=== PATIENT | female | born 1945 | race Caucasian/White ===

== ENCOUNTER → 2020-05-20 11:17 | Outpatient (CLI) | payer OTHER, SELFPAY ==
--- NOTE | ~2020-05-20 | XR_ITS ---
EXAMINATION: XR chest 2V DATE: 05/20/2020 11:30 INDICATION: Rheumatoid arthritis. Drug monitoring. TECHNIQUE: Frontal and lateral views of the chest were obtained. COMPARISON: None. FINDINGS: A calcified right lung nodule and calcified right hilar and mediastinal lymph nodes are con sistent with old granulomatous disease. There is blunting of the posterior costophrenic angles. No pn eumothorax. The heart size is normal. IMPRESSION: 1. No evidence of chronic interstitial lung disease. 2. Blunting of the posterior costophrenic angles, which may be scarring or tiny pleural effusions. Reviewed, dictated and finalized at location B. ER ELECTRICIAN
== END ==
PROVIDERS: PCP Family Medicine; Visit Provider Internal Medicine Rheumatology
DX: M05.79 Rheumatoid arthritis with rheumatoid factor of multiple sites without organ or systems involvement (principal); Z79.899 Other long term (current) drug therapy; Z51.81 Encounter for therapeutic drug level monitoring; R91.8 Other nonspecific abnormal finding of lung field
CPT/HCPCS: 71046

== ENCOUNTER 2022-03-11 15:40 | Outpatient (CLI) | payer OTHER, SELFPAY ==
--- NOTE | ~2022-03-11 | DEXA_ITS ---
Bone Density Report Name: CHRISTINE RIZO Age: 76 Sex: Female Ethnicity: White Date of : 1945 Indication: postmenopausal; screening for osteoporosis; height loss; hysterectomy; Referring Provider: BRIANNA STEEN Study: Bone densitometry was performed. Exam Date: March 11, 2022 Accession number: [id number] Bone Density: Region BMD T-score Z-score Classification AP Spine(L1-L4) 0.895 -1.4 1.0 Osteopenia Femoral Neck (Left) 0.601 -2.2 -0.2 Osteopenia Total Hip (Left) 0.719 -1.8 -0.1 Osteopenia Femoral Neck (Right) 0.634 -1.9 0.1 Osteopenia Total Hip (Right) 0.741 -1.7 0.1 Osteopenia Total Hip Mean 0.730 -1.8 0.0 Osteopenia World Health Organization criteria for BMD impression classify patients as: Normal (T-score at or above -1.0), Osteopenia (T-score between -1.0 and -2.5), or Osteoporosis (T-score at or below -2.5). 10-year Fracture Risk(1): Major Osteoporotic Fracture 14% Hip Fracture 3.7% Reported Risk Factors: [place] (), Neck BMD=0.601, BMI=25.3 (1) FRAX(R) Version 3.08. Fracture probability calculated for an untreated patient. Fracture probability may be lower if the patient has received treatment. Clinical Information Provided by Patient: Has used the following medications: Vitamin D, Calcium Has the following medical conditions: Hysterectomy Patient maximum height was 65 Drinks caffeinated beverages Onset of menses at age 14 Number of children 2 Impression: The patient has low bone mass, based on the Left Femoral Neck T-score. The patient has an estimated ten-year risk of hip fracture of 3.7% and an estimated ten-year risk of major fracture of 14%, based on the WHO FRAX algorithm. Discussion: BONE DENSITY IS LOW AT ONE OR MORE SKELETAL SITES. THE PATIENT'S BMD AND CLINICAL RISK FACTORS CONTRIBUTE TO THIS PATIENT'S INCREASED RISK OF FRACTURE. This patient's lowest T-score is low at one or more skeletal sites. It meets the World Health Organization's (WHO) criteria for ?low bone mass? (T-score between -1.0 and -2.5). The patient's 10-year risk of hip fracture as calculated by FRAX exceeds the threshold where pharmacological therapy is recommended by the National Osteoporosis Foundation (NOF). However, all treatment decisions require clinical judgment and consideration of individual patient factors, including patient preferences, comorbidities, previous drug use, risk factors not captured in the FRAX model (e.g., frailty, falls, vitamin D deficiency, increased bone turnover, interval significant decline in bone density) and possible under or overestimation of fracture risk by FRAX. The patient should follow a healthful lifestyle (good nutrition with adequate calcium and vitamin D, and appropriate weight-bearing exercise). Follow-Up: Consider a repeat BM
== END 2022-03-11 15:41 | disposition home or self-care (01) ==
PROVIDERS: PCP Emergency Medicine; Visit Provider Physician Assistant
DX: M85.89 Other specified disorders of bone density and structure, multiple sites (principal)
CPT/HCPCS: 77080

== ENCOUNTER 2022-06-30 12:46 | Outpatient (CLI) | payer OTHER, SELFPAY ==
--- NOTE | ~2022-06-30 | MM_ITS ---
EXAMINATION: MM screening ashlie BI w jazmyn HISTORY: Screening mammogram TECHNIQUE: Craniocaudal and mediolateral oblique 3-D tomosynthesis images were obtained and synthetic 2-D images were generated. CAD analysis was submitted and interpreted. COMPARISON: 07/18/2014, 03/21/2013 bilateral screening mammogram examinations BREAST PARENCHYMAL COMPOSITION: There are scattered areas of fibroglandular density. FINDINGS: There is no evidence of suspicious mass, calcification, or architectural distortion to sugg est malignancy in either breast. There has been no suspicious interval change. IMPRESSION: 1. No mammographic evidence of malignancy. 2. Recommend routine screening mammography in one year. BI-RADS Category 1: Negative Reviewed, dictated and finalized at location A. LUTION AGENT
== END 2022-06-30 12:47 | disposition home or self-care (01) ==
LOC: ANHIMG 12:47
PROVIDERS: PCP Emergency Medicine; Visit Provider Physician Assistant
DX: Z12.31 Encounter for screening mammogram for malignant neoplasm of breast (principal)
CPT/HCPCS: 77063; 77067

== ENCOUNTER 2023-02-17 09:53 | Outpatient (CLI) | payer OTHER, SELFPAY ==
--- NOTE | ~2023-02-17 | XR_ITS ---
EXAMINATION:XR_[id number]_CR DATE: 02/17/2023 10:13 INDICATION: Neck pain TECHNIQUE: AP, lateral, lateral swimmers and odontoid views of the cervical spine are provided. COMPARISON: None FINDINGS: There are 2 mm of anterolisthesis of C4 on C5. The odontoid process is intact. No fracture is identified. There is severe loss of intervertebral disc space height at C5-6. Small degenerative o steophytes project from the anterior endplates of multiple vertebral bodies. There is severe facet an d uncovertebral joint osteoarthritis at C5-6 and C6-7. There is multilevel moderate facet and uncover tebral joint osteoarthritis. Prevertebral soft tissues are normal. IMPRESSION: 1. Multilevel cervical spondylosis, severe at C5-6, without acute findings. Reviewed, dictated and finalized at location F.
== END 2023-02-17 09:54 | disposition home or self-care (01) ==
PROVIDERS: PCP Emergency Medicine; Visit Provider Emergency Medicine
DX: M43.02 Spondylolysis, cervical region (principal); M54.2 Cervicalgia
CPT/HCPCS: 72040

== ENCOUNTER 2023-07-11 00:56 | Day surgery (SDC) | payer OTHER, SELFPAY ==
--- NOTE | 2023-07-06 10:06 | PC.NURSE ---
Report to the Outpatient Waiting Room, entrance under the green pavilion located off [facility], at time _1230 on date _07/11/23 . Planned Procedure Time: __1330 . Time changes happen often and if your time is changed the preop area will call you the afternoon before. - You and your visitor will be asked to self-screen and do not enter if you have any COVID symptoms. - A mask is optional within the hospital at this time. EAT A LIGHT BREAKFAST/LUNCH PRIOR TO PROCEDURE.DO NOT EAT OR DRINK ANYTHING OTHER THAN SCHEDULED MEDICATIONS WITH SMALL AMOUNT OF WATER FOR TWO HOURS ( 11;30 AM) PRIOR TO PROCEDURE Take the following medications with a SIP of water the morning of surgery: ___ALL ROUTINE MORNING MEDICATIONS DO NOT STOP ANY OF YOUR OTHER PRESCRIPTION MEDICATIONS PRIOR TO SURGERY ?EXCEPT THE FOLLOWING Medications to discontinue per physician NONE TAKE SHOWER/BATH THE EVENING BEFORE AND MORNING OF PROCEDURE Please no make-up, nail afghan, hairspray, perfume, deodorant, or body powder the day of surgery. No jewelry (including any body piercings) or valuables the day of surgery, leave them at home. Please take a shower or bath the night before, or the morning of, surgery with an antibacterial soap. Wear comfortable, loose fitting clothing. Children are encouraged to wear pajamas. - Jewelry must be removed prior to entering the operating room. Rings and piercings that are not removed may be cut off. - The hospital will not accept responsibility for valuables. - Please leave all valuables, including medications, at home the day of surgery. If you are going home after surgery, a licensed hazardous materials driver must drive you home. LOCAL /MAY DRIVE YOURSELF HOME - NO public transportation without another adult if you receive anesthesia. - We recommend that an adult stay with you for 24 hours following discharge. - We also recommend that you do not drive, make important decision, drink alcoholic beverages, or take any drugs that were not prescribed by your health care provider for at least 24 hours after your discharge time. Follow any additional instructions given to you from your surgeon. If you or anyone in your household have experienced Covid symptoms in the past week, please notify your surgeon or the nurse liaison at the phone number below for possible testing. Telephone instructions given to ____PATIENT and asked if any additional questions and then verbalized understanding. Patient advised to call surgeon office or pre surgery nurse liaison [phone] if any additional questions.
[2023-07-06 10:16] VITALS: BMI 25.7
--- NOTE | ~2023-07-11 | XR_ITS ---
EXAMINATION: XR fluoroscopy no charge DATE: 07/11/2023 14:20 CDT INDICATION: LEFT C5/C6/C7 MEDIAL BRANCH BLOCK . TECHNIQUE: 6 fluoroscopic images of the cervical spine were obtained during left C5-C7 medial branch block, performed by Toy Oseguera MD. I was not present during the procedure. Fluoroscopy exposure time was 27.3 seconds. Air Kerma 1.4190 mGy. DAP 0.0207 mGym2. COMPARISON: X-ray C-spine 02/17/2023. FINDINGS/IMPRESSION: Fluoroscopic documentation of left C5-C7 medial branch block. Please refer to the operative note for complete procedural details. Reviewed, dictated and finalized at location K.
[2023-07-11 12:33] VITALS: BP 140/86; PULSE 69; RESP 18; TEMP 36.6; O2SAT 99
--- NOTE | 2023-07-11 12:47 | PM.HPGS ---
History of Present Illness History of Present Illness Consent: Risks, benefits, and alternatives have been discussed and questions answered. Patient agrees to proceed with procedure. Chief complaint: spondylolysis cervical region, cervicalgia Narrative: Thu Gaviria is a 77 year old female with chronic, recalcitrant and disabling left cervical pain secondary to degenerative spondylosis with failure to respond to aggressive conservative measures including PT, oral and topical analgesics, opioid and nonopioid analgesics, rest, time and activity/behavioral modification over the past 1-2 years who presents for left diagnostic/prognostic medial branch blocks (#1)at C5, C6, Ct under fluoroscopic guidance[ and with contrast control]. Review of Systems Review of Systems: Patient denies any new infectious, allergic, cardiopulmonary, neurologic or constitutional symptoms or changes in activity tolerance or exercise capacity including new or progressive SOB/MATHEWS, peripheral edema, productive cough, dysuria, nausea/vomiting, diarrhea, weight change, fevers/chills/night sweats, new or progressive neurologic deficit, cognitive or mood changes since last seen, except as documented in the HPI. All systems reviewed & are unremarkable except as noted in HPI and below PMFSH Past Medical History Medical History (Updated 05/09/23 @ 11:12 by Toy Oseguera MD) Abnormal colonoscopy Cystocele Cystocele Surgical History Surgical History H/O: hysterectomy Family History Family History Other Cerebrovascular accident Family history of cardiovascular disease Social History Social History (Updated 02/09/23 @ 16:04 by Veronique Farmer) Smoking packs per day: 0.5 Smoking cigarettes per day: 10.0 Years smoked: 5 Smoking pack-years: 2.50 Smoking status: Former smoker Tobacco type: cigarettes Smoking end date: 05/02/68 Alcohol intake: current Drinks per week: 7 Alcohol use details: 1 glass of wine every night Substance use: current Substance use type: marijuana Last use: last used marijuana in june Lack of Transportation: No Lack of Food: Sometimes True Current Housing: I Have Housing Concerned About Future Housing: No Difficulty Paying Gas/Electric Bills: No Difficulty Paying for Meds: No Currently Unemployed: No Education: Master's Degree or Higher Difficulty w/ Childcare or Family Care: No [place] Spiritual care concerns: No Meds Home Medications and Allergies Home Medications Medication Instructions Recorded Confirmed Type adalimumab 40 mg/0.8 mL 0.8 mg subcut .every 2 weeks 03/22/19 07/06/23 History subcutaneous pen kit (Humira Pen) hydroxychloroquine 200 mg tablet 200 mg PO .qd 09/09/20 07/06/23 History methotrexate sodium 2.5 mg tablet 20 mg PO WEEKLY #32 tabs 03/17/21 07/06/23 Rx folic acid 1 mg tablet 1 mg PO DAILY 04/13/22 07/06/23 History losartan 50 mg tablet See Rx Instructions .Route 10/25/22 07/06/23 Rx .COMPLEX #90 tabs trazodone 100 mg tablet See Rx Instructions .Route 02/15/23 07/06/23 Rx .COMPLEX #90 tabs alendronate 70 mg tablet 70 mg PO WEEKLY #14 tabs 03/28/23 07/06/23 Rx venlafaxine 225 mg tablet,extended 225 mg PO DAILY #90 tabs 03/28/23 07/06/23 Rx release 24 hr clonazepam 1 mg tablet (Klonopin) 1 mg PO QHS #90 tabs 05/16/23 07/06/23 Rx fluticasone propionate 50 See Rx Instructions .Route 05/17/23 07/06/23 Rx mcg/actuation nasal .COMPLEX #48 grams spray,suspension acetaminophen 500 mg capsule 500 mg PO Q6H PRN Pain 07/06/23 07/06/23 History calcium carb-ergocalciferol (vit 1 tablet PO DAILY 07/06/23 07/06/23 History D2) 600 mg calcium-200 unit tablet cholecalciferol (vitamin D3) 50 50 mcg PO DAILY 07/06/23 07/06/23 History mcg (2,000 unit) tablet cyclosporine 0.05 % eye drops in a 1 drp EAC
--- NOTE | 2023-07-11 12:50 | WPDHPUPDATE1 ---
History and Physical Update Update Date/Time: 07/11/23 12:50 History and Physical has been reviewed, including an updated exam of the patient. There are NO changes in the patient's condition. Risks, benefits, and alternatives have been discussed and questions answered. Patient agrees to proceed with procedure.
--- NOTE | 2023-07-11 12:52 | W.PM.PROC2 ---
Procedure Note - Detailed Date of Procedure 07/11/23 Pre-op Diagnosis spondylolysis cervical region, cervicalgia Post-op Diagnosis Same Procedure Performed Left C5, C6, C7 medial branch block (#1) addressing the left C5-6, C6-7 facet joints under fluoroscopic guidance with contrast control. Surgeon Toy Oseguera MD Anesthesia Local Description of Procedure INFORMED CONSENT: Risks, benefits and alternatives to the procedure were discussed in detail with the patient who expressed explicit understanding and consent to proceed. Patient was informed verbally and in written form regarding the risks associated with the procedure including the low risk of serious infection, bleeding/bruising, allergic reaction, nerve or organ injury, paralysis, procedural site pain or discomfort, worsening pain and/or mobility, failure to treat and/or disfigurement. The patient expressed explicit understanding and consent to proceed. All materials required for the procedure were available prior to procedure start. Site and side were marked prior to procedure and confirmed in the presence of the patient. PROCEDURE IN DETAIL: The patient was brought to the procedural suite and placed in the prone position with head stabilized with a ProneView pillow. Patient was made comfortable with use of pillows under the head/chest, hips and ankles. Skin overlying the injection site on the affected side(s) was prepared broadly with ChloraPrep applicator and draped in a sterile manner. Aseptic technique was used throughout. The endplates of the vertebral bodies at the site(s) of interest were aligned in the AP view. Ipsilateral oblique angulation was utilized to optimize visualization of the pars interarticularis at each target site. Local anesthesia was established by infiltration with approximately 5 mL of 1% lidocaine via a 1-1/2 inch 27-gauge needle. A 25-gauge 3.5 inch Quincke spinal needle was advanced until the needle tip contacted the periosteum of the pars interarticularis at the target site, left C5. Lateral view was utilized to confirm the appropriate placement of the needle tip just anterior to the center point of the interarticularis. In the Lateral view, 0.25 mL of Omnipaque 300 contrast medium was injected after negative aspiration for CSF, blood or other bodily fluid, showing appropriate extra-articular spread of contrast without evidence of intravascular, foraminal or intrathecal placement. A 0.25 mL solution of 0.25% PF bupivacaine was injected after negative repeat aspiration. Appropriate spread of the injectate was confirmed with washout of previously injected contrast. No parasthesias were elicited. Needle was removed completely intact without difficulty. The same exact procedure was repeated for all remaining levels on the ipsilateral side, left C6,C7 medial branches, modified as necessary to accommodate for the new target location with identical findings and results and no evidence of complication. Images were saved and documented in the patient chart. Patient's skin was cleansed and sterile bandage applied. The patient tolerated the procedure well. The patient was transported to the recovery area in stable condition where they were observed for an appropriate amount of time prior to discharge, without evidence of complication. Patient was instructed on the appropriate completion of a pain diary over the next 12-24 hours. The patient was instructed to avoid excessive activity for the next 48 hours, including climbing and frequent use of stairs. Showers only for 48 hours. They were instructed not to drive or operate heavy machinery for 24 hours. They are to monitor for severe headaches, fevers, chills, night sweats, erythema/swelling at the site or any other signs of infection, bleeding/bruising, bowel or bladder changes as well as new pain, weakness or numbness in the upper or lower extremity. Should they notice these changes, they are instructed to call our office immediately or re
[2023-07-11 14:22] VITALS: BP 149/82; PULSE 66; RESP 20; O2SAT 97
[2023-07-11 14:32] VITALS: BP 167/86; PULSE 67; RESP 18; O2SAT 98
[2023-07-11] MEDS: BUPivacaine HCL 0.25% PF 30 ML VIAL INFILTRATE (14:34)
[2023-07-11] MEDS: LIDOCAINE HCL 1% LOCAL INJ 20 ML VIAL INFILTRATE (14:36)
[2023-07-11 14:38] VITALS: BP 161/80; PULSE 65; RESP 16; O2SAT 100
== END 2023-07-11 14:58 | disposition home or self-care (01) ==
PROVIDERS: PCP Emergency Medicine; Visit Provider Anesthesiology Pain Medicine
PROC: (CPT 64490; principal; 2023-07-11 13:30)
DX: M47.812 Spondylosis without myelopathy or radiculopathy, cervical region (principal); G89.29 Other chronic pain; F12.90 Cannabis use, unspecified, uncomplicated; Z79.85 Long-term (current) use of injectable non-insulin antidiabetic drugs; Z79.83 Long term (current) use of bisphosphonates; Z87.891 Personal history of nicotine dependence; Z82.49 Family history of ischemic heart disease and other diseases of the circulatory system
CPT/HCPCS: 64490; 64491; 99199

== ENCOUNTER 2023-08-23 01:10 | Day surgery (SDC) | payer OTHER, SELFPAY ==
[2023-08-18 11:20] VITALS: BMI 25.8
--- NOTE | 2023-08-18 11:25 | PC.NURSE ---
Report to the Outpatient Waiting Room, entrance under the green pavilion located off [facility], at time __0900 on date __08/23/23 . Planned Procedure Time: ___999 . Time changes happen often and if your time is changed the preop area will call you the afternoon before. - You and your visitor will be asked to self-screen and do not enter if you have any COVID symptoms. - A mask is optional within the hospital at this time. -MAY HAVE LIGHT BREAKFAST - NO FOOD/FLUIDS 2 HOURS PRIOR TO YOUR PROCEDURE (0800 AM) -Take the following medications with a SIP of water the morning of surgery: ___REGULAR HOME MEDS DO NOT STOP ANY OF YOUR OTHER PRESCRIPTION MEDICATIONS PRIOR TO SURGERY ?EXCEPT THE FOLLOWING Medications to discontinue per physician N/A Date to take last dose Please no make-up, nail irish, hairspray, perfume, deodorant, or body powder the day of surgery. No jewelry (including any body piercings) or valuables the day of surgery, leave them at home. Please take a shower or bath the night before, or the morning of, surgery with an antibacterial soap. Wear comfortable, loose fitting clothing. Children are encouraged to wear pajamas. - Jewelry must be removed prior to entering the operating room. Rings and piercings that are not removed may be cut off. - The hospital will not accept responsibility for valuables. - Please leave all valuables, including medications, at home the day of surgery. -MAY DRIVE SELF TO/FROM HOSPITAL-BUT A CLINICAL OPERATIONS CONSULTANT IS RECOMMENDED For Pediatric surgeries, we recommend two adults accompany the child home. Follow any additional instructions given to you from your surgeon. If you or anyone in your household have experienced Covid symptoms in the past week, please notify your surgeon or the nurse liaison at the phone number below for possible testing. Telephone instructions given to ____PT and asked if any additional questions and then verbalized understanding. Patient advised to call surgeon office or pre surgery nurse liaison [phone] if any additional questions.
--- NOTE | ~2023-08-23 | XR_ITS ---
XR fluoroscopy no charge Indication: Cervical C5,, C6, C7 medial nerve branch block TECHNIQUE: Fluoroscopy used during Cervical C5,, C6, C7 medial nerve branch block performed by [ Toy Oseguera MD] on 08/23/2023. 59 seconds of fluoroscopy with 6 fluoroscopic images captured. FINDINGS: Correlate with procedure note. IMPRESSION: Fluoroscopy used during Cervical C5,, C6, C7 medial nerve branch block. Reviewed, dictated and finalized at location B. IMPRESSION: Fluoroscopy used during Cervical C5,, C6, C7 medial nerve branch bl ock.
--- NOTE | 2023-08-23 09:18 | PM.HPGS ---
History of Present Illness History of Present Illness Consent: Risks, benefits, and alternatives have been discussed and questions answered. Patient agrees to proceed with procedure. Chief complaint: Spondylosis without Myelopathy Radiculopathy Narrative: Thu Gaviria is a 78 year old femalewith chronic, recalcitrant and disabling left cervical pain secondary to degenerative spondylosis with failure to respond to aggressive conservative measures including PT, oral and topical analgesics, opioid and nonopioid analgesics, rest, time and activity/behavioral modification over the past 1-2 years who presents for diagnostic/prognostic medial branch blocks (#2) under fluoroscopic guidance and with contrast control. Review of Systems Review of Systems: All systems reviewed & are unremarkable except as noted in HPI and below PMFSH Past Medical History Medical History (Updated 08/10/23 @ 15:42 by Amilcar Trevino MD) Abnormal colonoscopy Cystocele Cystocele Surgical History Surgical History H/O: hysterectomy Family History Family History Other Cerebrovascular accident Family history of cardiovascular disease Social History Social History Smoking packs per day: 0.5 Smoking cigarettes per day: 10.0 Years smoked: 5 Smoking pack-years: 2.50 Smoking status: Former smoker Tobacco type: cigarettes Second hand tobacco smoke exposure: No Smoking end date: 05/02/68 Alcohol intake: current Drinks per week: 7 Alcohol use details: 1 glass of wine every night Substance use: never Substance use type: does not use Last use: last used marijuana in june Lack of Transportation: No Lack of Food: Sometimes True Current Housing: I Have Housing Concerned About Future Housing: No Difficulty Paying Gas/Electric Bills: No Difficulty Paying for Meds: No Currently Unemployed: No Education: Master's Degree or Higher Difficulty w/ Childcare or Family Care: No Living arrangements: alone Additional [place] [facility] [place] concerns: No Meds Home Medications and Allergies Home Medications Medication Instructions Recorded Confirmed Type adalimumab 40 mg/0.8 mL 0.8 mg subcut .every 2 weeks 03/22/19 08/18/23 History subcutaneous pen kit (Humira Pen) hydroxychloroquine 200 mg tablet 200 mg PO .qd 09/09/20 08/18/23 History methotrexate sodium 2.5 mg tablet 20 mg PO WEEKLY #32 tabs 03/17/21 08/18/23 Rx folic acid 1 mg tablet 1 mg PO DAILY 04/13/22 08/18/23 History alendronate 70 mg tablet 70 mg PO WEEKLY #14 tabs 03/28/23 08/18/23 Rx venlafaxine 225 mg tablet,extended 225 mg PO DAILY #90 tabs 03/28/23 08/18/23 Rx release 24 hr clonazepam 1 mg tablet (Klonopin) 1 mg PO QHS #90 tabs 05/16/23 08/18/23 Rx fluticasone propionate 50 See Rx Instructions .Route 05/17/23 08/18/23 Rx mcg/actuation nasal .COMPLEX #48 grams spray,suspension acetaminophen 500 mg capsule 500 mg PO Q6H PRN Pain 07/06/23 08/18/23 History calcium carb-ergocalciferol (vit 1 tablet PO DAILY 07/06/23 08/18/23 History D2) 600 mg calcium-200 unit tablet cholecalciferol (vitamin D3) 50 50 mcg PO DAILY 07/06/23 08/18/23 History mcg (2,000 unit) tablet cyclosporine 0.05 % eye drops in a 1 drp EACH EYE TID 07/06/23 08/18/23 History dropperette (Restasis) diclofenac sodium 1 % topical gel 2 g topical PRN PRN Pain 07/06/23 08/18/23 History (Voltaren Arthritis Pain) tizanidine 4 mg tablet 4 mg PO PRN PRN Muscle Spasm 07/06/23 08/18/23 History vitamin B complex 1 cap PO DAILY 07/06/23 08/18/23 History losartan 50 mg tablet See Rx Instructions .Route 07/18/23 08/18/23 Rx .COMPLEX #90 tabs trazodone 100 mg tablet See Rx Instructions .Route 08/15/23 08/18/23 Rx .COMPLEX #90 tabs Allergies Al
--- NOTE | 2023-08-23 09:21 | WPDHPUPDATE1 ---
History and Physical Update Update Date/Time: 08/23/23 09:21 History and Physical has been reviewed, including an updated exam of the patient. There are NO changes in the patient's condition. Risks, benefits, and alternatives have been discussed and questions answered. Patient agrees to proceed with procedure.
--- NOTE | 2023-08-23 09:22 | W.PM.PROC2 ---
Procedure Note - Detailed Date of Procedure 08/23/23 Pre-op Diagnosis cervical Spondylosis without Myelopathy Radiculopathy , cervicalgia Post-op Diagnosis Same Procedure Performed Diagnostic left Cervical Medial Branch Blocks at C5, C6, C7 Blocking the Ipsilateral C5-6, C6-7 facet joints under Fluoroscopic Guidance and with Contrast Control (2 levels blocked). Surgeon Toy Oseguera MD Anesthesia Local Description of Procedure INFORMED CONSENT: Risks, benefits and alternatives to the procedure were discussed in detail with the patient who expressed explicit understanding and consent to proceed. Patient was informed verbally and in written form regarding the risks associated with the procedure including the low risk of serious infection, bleeding/bruising, allergic reaction, nerve or organ injury, paralysis, procedural site pain or discomfort, worsening pain and/or mobility, failure to treat and/or disfigurement. The patient expressed explicit understanding and consent to proceed. All materials required for the procedure were available prior to procedure start. Site and side were marked prior to procedure and confirmed in the presence of the patient. PROCEDURE IN DETAIL: The patient was brought to the procedural suite and placed in the prone position with head stabilized with a ProneView pillow. Patient was made comfortable with use of pillows under the head/chest, hips and ankles. Skin overlying the injection site on the affected side(s) was prepared broadly with ChloraPrep applicator and draped in a sterile manner. Aseptic technique was used throughout. The endplates of the vertebral bodies at the site(s) of interest were aligned in the AP view. Ipsilateral oblique angulation was utilized to optimize visualization of the pars interarticularis at each target site. Local anesthesia was established by infiltration with approximately 5 mL of 1% lidocaine via a 1-1/2 inch 27-gauge needle. A 25-gauge 3.5 inch Quincke spinal needle was advanced until the needle tip contacted the periosteum of the pars interarticularis at the target site, left C5. Lateral view was utilized to confirm the appropriate placement of the needle tip just anterior to the center point of the interarticularis. In the Lateral view, 0.25 mL of Omnipaque 300 contrast medium was injected after negative aspiration for CSF, blood or other bodily fluid, showing appropriate extra-articular spread of contrast without evidence of intravascular, foraminal or intrathecal placement. A 0.25 mL solution of 2.0% preservative-free lidocaine was injected after negative repeat aspiration. Appropriate spread of the injectate was confirmed with washout of previously injected contrast. No parasthesias were elicited. Needle was removed completely intact without difficulty. The same exact procedure was repeated for all remaining levels on the ipsilateral side, left C6,C7 medial branches, modified as necessary to accommodate for the new target location with identical findings and results and no evidence of complication. Images were saved and documented in the patient chart. Patient's skin was cleansed and sterile bandage applied. The patient tolerated the procedure well. The patient was transported to the recovery area in stable condition where they were observed for an appropriate amount of time prior to discharge, without evidence of complication. Patient was instructed on the appropriate completion of a pain diary over the next 12-24 hours. The patient was instructed to avoid excessive activity for the next 48 hours, including climbing and frequent use of stairs. Showers only for 48 hours. They were instructed not to drive or operate heavy machinery for 24 hours. They are to monitor for severe headaches, fevers, chills, night sweats, erythema/swelling at the site or any other signs of infection, bleeding/bruising, bowel or bladder changes as well as new pain, weakness or numbness in the upper or lower extremity.
[2023-08-23 11:33] VITALS: BMI 25.3
[2023-08-23 11:35] VITALS: BP 131/74; PULSE 70; RESP 14; TEMP 36.6; O2SAT 100
[2023-08-23 11:51] VITALS: BP 143/76; PULSE 63; RESP 16; O2SAT 98
[2023-08-23 12:01] VITALS: BP 137/78; PULSE 64; RESP 16; O2SAT 99
[2023-08-23] MEDS: LIDOCAINE HCL 2% LOCAL INJ 20 ML VIAL 10 ML INFILTRATE (12:01)
[2023-08-23 12:15] VITALS: BP 142/73; PULSE 63; RESP 16; O2SAT 100
== END 2023-08-23 12:32 | disposition home or self-care (01) ==
PROVIDERS: PCP Emergency Medicine; Visit Provider Anesthesiology Pain Medicine
PROC: (CPT 64490; principal; 2023-08-23 11:30)
DX: M47.812 Spondylosis without myelopathy or radiculopathy, cervical region (principal); M54.2 Cervicalgia; G89.29 Other chronic pain; Z87.891 Personal history of nicotine dependence
CPT/HCPCS: 64490; 64491; 99199; Q9965

== ENCOUNTER 2024-01-23 00:58 | Day surgery (SDC) | payer OTHER, SELFPAY ==
[2024-01-16 09:14] VITALS: BMI 25.8
--- NOTE | 2024-01-16 09:19 | PC.NURSE ---
Report to the Outpatient Waiting Room, entrance under the green pavilion located off [facility], at time _0600_ on date _[id number]_. Planned Procedure Time: _0730_.? Time changes happen often and if your time is changed the preop area will call you the afternoon before. - You and your visitor will be asked to self-screen and do not enter if you have any COVID symptoms. Please call surgeon if you need to reschedule. - A mask is optional within the hospital at this time. - No food or drink from midnight until time of surgery and no smoking Take only the following medications with a SIP of water on the morning of surgery: ___Venlafaxine, Hydroxychloroquin, Restasis and flonase.___ DO NOT STOP ANY OF YOUR OTHER PRESCRIPTION MEDICATIONS PRIOR TO SURGERY EXCEPT THE FOLLOWING Medications to discontinue per physician All vitamins Date to take last sfyg___[phone] Please no make-up, nail divehi, hairspray, perfume, deodorant, or body powder the day of surgery.? No jewelry (including any body piercings) or valuables the day of surgery, leave them at home.? Please take a shower or bath the night before, or the morning of, surgery with an antibacterial soap.? Wear comfortable, loose fitting clothing.? - Jewelry must be removed prior to entering the operating room.? Rings and piercings that are not removed may be cut off. - The hospital will not accept responsibility for valuables.? - Please leave all valuables, including medications, at home the day of surgery. If you are going home after surgery, a licensed emergency medical technician/driver must drive you home.? - NO public transportation without another adult if you receive anesthesia. - We recommend that an adult stay with you for 24 hours following discharge. - We also recommend that you do not drive, make important decision, drink alcoholic beverages, or take any drugs that were not prescribed by your health care provider for at least 24 hours after your discharge time. Follow any additional instructions given to you from your surgeon. Telephone instructions given to __Grace___and asked if any additional questions and then verbalized understanding. Patient advised to call surgeon office or pre surgery nurse liaison [phone] if any additional questions.
--- NOTE | ~2024-01-23 | XR_ITS ---
EXAMINATION: XR fluoroscopy no charge DATE: 01/23/2024 09:22 INDICATION: Radiofrequency ablation left C5, C6 and C7 medial branch nerves. TECHNIQUE: 4 fluoroscopic images of the neck were obtained during procedure performed by Dr. Oseguera. Ra diologist was not present for the imaging or procedure. The amount of fluoroscopy time used during th is procedure was 2.5 minutes. COMPARISON: None. FINDINGS/IMPRESSION: Fluoroscopic image demonstrate the tips of needles projecting along the lateral margin of the left la teral masses of C5, C6 and C7. See procedure note for further detail. Reviewed, dictated and finalized at location A.
--- NOTE | 2024-01-23 05:54 | PM.HPGS ---
History of Present Illness History of Present Illness Consent: Risks, benefits, and alternatives have been discussed and questions answered. Patient agrees to proceed with procedure. Chief complaint: cervical spondylosis, cervicalgia Narrative: Thu Gaviria is a 78 year old female with chronic, recalcitrant and disabling left cervicothoracic neck pain secondary to degenerative spondylosis with failure to respond to aggressive conservative measures including PT, oral and topical analgesics, opioid and nonopioid analgesics, rest, time and activity/behavioral modification over the past 1-2 years who presents for thermal radiofrequency ablation of the left C5, C6, C7 medial branches to address the left C5-6, C6-7 facet joints under fluoroscopic guidance. Review of Systems Review of Systems: Patient denies any new infectious, allergic, cardiopulmonary, neurologic or constitutional symptoms or changes in activity tolerance or exercise capacity including new or progressive SOB/MATHEWS, peripheral edema, productive cough, dysuria, nausea/vomiting, diarrhea, weight change, fevers/chills/night sweats, new or progressive neurologic deficit, cognitive or mood changes since last seen, except as documented in the HPI. All systems reviewed & are unremarkable except as noted in HPI and below PMFSH Past Medical History Medical History Abnormal colonoscopy Cystocele Cystocele Surgical History Surgical History H/O: hysterectomy Family History Family History Other Cerebrovascular accident Family history of cardiovascular disease Social History Social History Smoking packs per day: 0.5 Smoking cigarettes per day: 10.0 Years smoked: 5 Smoking pack-years: 2.50 Smoking status: Never smoker Tobacco type: cigarettes Second hand tobacco smoke exposure: No Smoking end date: 05/02/68 Alcohol intake: current Drinks per week: 7 Alcohol use details: 1 glass of wine every night Substance use: never Substance use type: does not use Last use: last used marijuana in june Lack of Transportation: No Lack of Food: Sometimes True Current Housing: Decline to Answer Concerned About Future Housing: Decline to Answer Difficulty Paying Gas/Electric Bills: Decline to Answer Difficulty Paying for Meds: Decline to Answer Currently Unemployed: Decline to Answer Education: Decline to Answer Difficulty w/ Childcare or Family Care: Decline to Answer Living arrangements: alone [facility] Spiritual care concerns: No Meds Home Medications and Allergies Home Medications Medication Instructions Recorded Confirmed Type adalimumab 40 mg/0.8 mL 0.8 mg subcut .every 2 weeks 03/22/19 01/18/24 History subcutaneous pen kit (Humira Pen) hydroxychloroquine 200 mg tablet 200 mg PO .qd 09/09/20 01/18/24 History methotrexate sodium 2.5 mg tablet 20 mg PO WEEKLY #32 tabs 03/17/21 01/18/24 Rx folic acid 1 mg tablet 1 mg PO DAILY 04/13/22 01/18/24 History fluticasone propionate 50 See Rx Instructions .Route 05/17/23 01/18/24 Rx mcg/actuation nasal .COMPLEX #48 grams spray,suspension acetaminophen 500 mg capsule 500 mg PO Q6H PRN Pain 07/06/23 01/18/24 History calcium carb-ergocalciferol (vit 1 tablet PO DAILY 07/06/23 01/18/24 History D2) 600 mg calcium-200 unit tablet cholecalciferol (vitamin D3) 50 50 mcg PO DAILY 07/06/23 01/18/24 History mcg (2,000 unit) tablet cyclosporine 0.05 % eye drops in a 1 drp EACH EYE TID 07/06/23 01/18/24 History dropperette (Restasis) diclofenac sodium 1 % topical gel 2 g topical PRN PRN Pain 07/06/23 01/18/24 History (Voltaren Arthritis Pain) tizanidine 4 mg tablet 4 mg PO PRN PRN Muscle
--- NOTE | 2024-01-23 05:59 | WPDHPUPDATE1 ---
History and Physical Update Update Date/Time: 01/23/24 05:59 History and Physical has been reviewed, including an updated exam of the patient. There are NO changes in the patient's condition. Risks, benefits, and alternatives have been discussed and questions answered. Patient agrees to proceed with procedure.
--- NOTE | 2024-01-23 05:59 | W.PM.PROC2 ---
Procedure Note - Detailed Date of Procedure 01/23/24 Pre-op Diagnosis cervical spondylosis, cervicalgia Post-op Diagnosis Same Procedure Performed Thermal Radiofrequency Ablation of the Left Cervical Medial Branches at [C2-3, C3, C4] to ablate the Ipsilateral C5-6, C6-7 facet joints under Fluoroscopic Guidance (2 levels treated). Surgeon Toy Oseguera MD Anesthesia Local Description of Procedure INFORMED CONSENT: Risks, benefits and alternatives to the procedure were discussed in detail with the patient who expressed explicit understanding and consent to proceed. Patient was informed verbally and in written form regarding the risks associated with the procedure including the low risk of serious infection, bleeding/bruising, allergic reaction, nerve or organ injury, paralysis, procedural site pain or discomfort, worsening pain and/or mobility, failure to treat and/or disfigurement. The patient expressed explicit understanding and consent to proceed. All materials required for the procedure were available prior to procedure start. Site and side was marked prior to procedure and confirmed in the presence of the patient. PROCEDURE IN DETAIL: The patient was brought to the procedural suite and placed in the prone position with head stabilized with a ProneView pillow. Patient was made comfortable with use of pillows under the head/chest, hips and ankles. Skin overlying the injection site on the affected side(s) was prepared broadly with ChloraPrep applicator and draped in a sterile manner. Aseptic technique was used throughout. The endplates of the vertebral bodies at the site(s) of interest were aligned in the AP view. Ipsilateral oblique angulation was utilized to optimize visualization of the pars interarticularis at each target site. Local anesthesia was established by infiltration with approximately 5 mL of 1% lidocaine via a 1-1/2 inch 27-gauge needle. An 18-gauge 100mm RF needle with curved 10mm active tip was advanced in the AP view until the needle tip contacted the periosteum of the pars interarticularis at the target site, left C5 medial branch, parallel to the course of the targeted branch. Lateral view was utilized to adjust and confirm the appropriate placement of the needle tip just anterior to the center point of the interarticularis, bisecting the distance between adjacent joint spaces. The appropriately-sized RF cannula was inserted into the RF needle and motor stimulation performed with no subjective or objective evidence of recruited muscle activity with stimulation up to 3.0 volts at a frequency of 2Hz. 0.5 mL solution of 2.0% PF lidocaine was injected after negative aspiration. Grounding electrode in place and functioning. After a 90s pause, lesioning was performed to 90 degrees centigrade for 90s ensuring lack of symptoms in the extremity throughout. Needle was withdrawn approcimately 1-2 mm and rotated 180 degrees. Lesioning repeated in a similar manner. Patient tolerated this well. No parasthesias were elicited. Needle was removed completely intact without difficulty. The same procedure was repeated for all intended levels/ structures on the ipsilateral side, left C6, C7 medial branches, with identical methodology, modified to compensate for new location, with similar results and no evidence of complication. Patient tolerated this well. Images were saved and documented in the patient chart. Patient's skin was cleaned and sterile bandage applied. The patient tolerated the procedure well. The patient was transported to the recovery area in stable condition where they were observed for an appropriate amount of time prior to discharge, without evidence of complication. The patient was instructed to avoid excessive activity for the next 48 hours, including overhead work, reaching and device/computer usage. Showers only for 48 hours. They were instructed not to drive or operate heavy machinery for 24 hours. They are to monitor for severe heada
[2024-01-23 07:38] VITALS: BMI 25.7
[2024-01-23] MEDS: LIDOCAINE HCL 2% PF INJ 5 ML VIAL INFILTRATE (08:57)
--- NOTE | 2024-01-23 09:07 | WPDANESEPPF ---
Anes - Initial Pre Proc Eval Procedure: Operation Date: 01/23/24 09:00 Proposed Procedures p Thermal Radio Frequency Ablation Left C5, C6, C7 Medial Branches Addressing Left C5-6, C6-7 Facet Joints Under Fluoroscopic Guidance - Toy Oseguera MD Date/Time: 01/23/24 09:07 Surgeon: Toy Oseguera MD Pre Op Diagnosis: cervical spondylosis, cervicalgia Patient Data Age: 78 Gender: F Height: 1.63 m Weight: 68.1 kg Allergies Allergy/AdvReac Type Severity Reaction Status Date / Time No Known Allergies Allergy Verified 01/23/24 07:16 Home Medications Medication Instructions Recorded Confirmed Type adalimumab 40 mg/0.8 mL 0.8 mg subcut .every 2 weeks 03/22/19 01/18/24 History subcutaneous pen kit (Humira Pen) hydroxychloroquine 200 mg tablet 200 mg PO .qd 09/09/20 01/18/24 History methotrexate sodium 2.5 mg tablet 20 mg PO WEEKLY #32 tabs 03/17/21 01/18/24 Rx folic acid 1 mg tablet 1 mg PO DAILY 04/13/22 01/18/24 History fluticasone propionate 50 See Rx Instructions .Route 05/17/23 01/18/24 Rx mcg/actuation nasal .COMPLEX #48 grams spray,suspension acetaminophen 500 mg capsule 500 mg PO Q6H PRN Pain 07/06/23 01/18/24 History calcium carb-ergocalciferol (vit 1 tablet PO DAILY 07/06/23 01/18/24 History D2) 600 mg calcium-200 unit tablet cholecalciferol (vitamin D3) 50 50 mcg PO DAILY 07/06/23 01/18/24 History mcg (2,000 unit) tablet cyclosporine 0.05 % eye drops in a 1 drp EACH EYE TID 07/06/23 01/18/24 History dropperette (Restasis) diclofenac sodium 1 % topical gel 2 g topical PRN PRN Pain 07/06/23 01/18/24 History (Voltaren Arthritis Pain) tizanidine 4 mg tablet 4 mg PO PRN PRN Muscle Spasm 07/06/23 01/18/24 History trazodone 100 mg tablet See Rx Instructions .Route 08/15/23 01/18/24 Rx .COMPLEX #90 tabs alendronate 70 mg tablet 70 mg PO WEEKLY #14 tabs 10/13/23 01/18/24 Rx venlafaxine 225 mg tablet,extended 225 mg PO DAILY #90 tabs 12/30/23 01/18/24 Rx release 24 hr losartan 50 mg tablet See Rx Instructions .Route 01/10/24 01/18/24 Rx .COMPLEX #90 tabs doxycycline monohydrate 100 mg 100 mg PO BID #20 tabs 01/18/24 Rx tablet methylprednisolone 4 mg tablets in See Rx Instructions PO PER PKG DIR 01/18/24 01/18/24 Rx a dose pack (Medrol (Ranjit)) #21 ea Patient hx anesthesia problems: none Family hx anesthesia problems: none Results Review: All pre-operative results and documents have been reviewed as part of the pre-operative evaluation. [facility] Past Medical History Medical History Abnormal colonoscopy Chronic pain syndrome Cystocele Cystocele Surgical History Surgical History H/O: hysterectomy Family History Family History Other Cerebrovascular accident Family history of cardiovascular disease Social History Social History Smoking packs per day: 0.5 Smoking cigarettes per day: 10.0 Years smoked: 5 Smoking pack-years: 2.50 Smoking status: Never smoker Tobacco type: cigarettes Second hand tobacco smoke exposure: No Smoking end date: 05/02/68 Alcohol intake: current Drinks per week: 7 Alcohol use details: 1 glass of wine every night Substance use: never Substance use type: does not use Last use: last used marijuana in june Lack of Transportation: No Lack of Food: Sometimes True Current Housing: Decline to Answer Concerned About Future Housing: Decline to Answer Difficulty Paying Gas/Electric Bills: Decline to Answer Difficulty Paying for Meds: Decline to Answer Currently Unemployed: Decline to Answer Education: Decline to Answer Difficulty w/ Childcare or Family Care: Decline to Answer Living arrangements: alone Additional living arrangements comments: [facility]
[2024-01-23] MEDS: LIDOCAINE HCL 1% PF INJ 5 ML VIAL INFILTRATE (09:08)
[2024-01-23 09:18] VITALS: BP 163/68; PULSE 72; RESP 14; O2SAT 100
[2024-01-23] MEDS: LACTATED RINGERS 1,000 ML 30 ML IV CONT (09:18)
[2024-01-23] MEDS: oxyCODONE HCL (*CRX) 5 MG TAB IR PO (09:46)
[2024-01-23 09:48] VITALS: BP 189/94; PULSE 74; RESP 16
[2024-01-23 10:18] VITALS: BP 180/87; PULSE 71; RESP 16
[2024-01-23 10:45] VITALS: BP 172/87; PULSE 72; RESP 16
== END 2024-01-23 10:50 | disposition home or self-care (01) ==
PROVIDERS: PCP Emergency Medicine; Visit Provider Anesthesiology Pain Medicine
PROC: (CPT 64633; principal; 2024-01-23 09:00)
DX: M47.812 Spondylosis without myelopathy or radiculopathy, cervical region (principal); M54.2 Cervicalgia; G89.4 Chronic pain syndrome; Z79.620 Long term (current) use of immunosuppressive biologic; Z79.83 Long term (current) use of bisphosphonates; Z98.890 Other specified postprocedural states; Z87.891 Personal history of nicotine dependence; Z82.49 Family history of ischemic heart disease and other diseases of the circulatory system
CPT/HCPCS: 64633; 64634; 99199; A9270; J2250; J2704; J3010; J7120; Q9965

== ENCOUNTER 2024-03-12 14:09 | Outpatient (CLI) | payer OTHER, SELFPAY | END 2024-03-12 14:10 | disposition home or self-care (01) | PROVIDERS: PCP Nurse Practitioner Family; Visit Provider Nurse Practitioner Family | DX: H90.3 Sensorineural hearing loss, bilateral (principal) | CPT/HCPCS: 92557; 92567 ==

== ENCOUNTER 2024-06-14 00:30 | Day surgery (SDC) | payer OTHER, SELFPAY ==
[2024-05-29 13:46] VITALS: BMI 27.6
--- OUTSIDE RECORDS SUMMARY | 2024-06-14 00:33 | XMS_ITS | Clinical Summary ---
Author Organization [facility] [employer] Address [address] [place] [address] Care Team Providers Care Dining Room Busser Name Role Phone Rema Sorenson KALEB-MEDICAL SCHEDULER Primary Care Provider + Source Comments [facility] [employer],non-owned Affiliates and Associated Physician Practices is amultiple site organization consisting of ambulatory clinics and hospital sitesin [place], [place], [place] and [place]. This disclosure is being madepursuant to the Care Everywhere program and may not contain all information available regarding this patient. Last updated 18.[facility] [employer] Allergies No known active allergies Medications * Be aware that medications may not be up to date on this document. Alwaysverify current medications with the patient. Medication Sig Dispensed Refills Start Date End Date Status traZODone (DESYREL) 100 MG tablet Take 1 (one) tablet by mouth at bedtime 3 11/10/2017 Active fluticasone propionate (FLONASE) 50 MCG/ACT nasal spray [place] 2 (two) sprays into each nostril once daily 6 07/26/2017 Active fexofenadine (XIAO) 180 MG tablet Take 1 (one) tablet by mouth once daily Active estradiol (ESTRACE) 0.1 MG/GM vaginal cream Insert 2 g into the vagina every 2 days 04/21/2015 Active losartan (COZAAR) 50 MG tablet Take 1 (one) tablet by mouth at bedtime 08/06/2019 Active alendronate (Fosamax) 70 MG tablet TAKE 1 TABLET BY MOUTH EVERY WEEK 04/13/2022 Active Venlafaxine HCl (venlafaxine ER 24hr) 225 MG tablet Take 1 (one) tablet by mouth daily with breakfast Active tiZANidine (Zanaflex) 4 MG tablet TAKE 1 TABLET BY MOUTH EVERY 8 HOURS NEEDED FOR MUSCLE SPASMS 90 tablet 5 08/17/2023 Active neomycin-polymyxin- dexameth (Maxitrol) ophthalmic ointment APPLY SMALL AMOUNT IN BOTH EYES EVERY NIGHT AT BEDTIME 10/13/2023 Active folic acid (Folvite) 1 MG tabletIndications:R heumatoid arthritis involving multiple sites with positive rheumatoid factor (HCC) Take 1 (one) tablet by mouth once daily 90 tablet 2 11/16/2023 Active Hyrimoz 40 MG/0.4ML injectionIndication s:Rheumatoid arthritis involving multiple sites with positive rheumatoid factor (HCC) INJECT 1 SYRINGE UNDER THE SKIN EVERY 14 DAYS 2.4 mL 3 02/22/2024 Active nitrofurantoin monohyd macro crystals (Macrobid) 100 MG capsule 03/08/2024 Active prednisoLONE acetate (Pred Forte) 1 % ophthalmic suspension Instill 1 (one) drop into both eyes 4 times daily 15 mL 03/14/2024 Active tobramycin (Tobrex) 0.3 % ophthalmic solution Instill 1 (one) drop into both eyes 4 times daily 5 mL 03/13/2024 Active HYDROcodone-acetami nophen ([place]) 5-325 MG tabletIndications:S /P eye surgery Take 1 (one) tablet by mouth every 6 hours as needed for Pain 10 tablet 03/13/2024 Active methotrexate 2.5 MG tablet TAKE 8 TABLETS BY MOUTH ONCE EVERY 7 DAYS 102 tablet 1 04/30/2024 Active hydroxychloroquine (Plaquenil) 200 MG tablet Take 1.5 (one and one-half) tablets by mouth once daily 90 tablet 05/10/2024 Active Active Problems Problem Noted Date Diagnosed Date Arthritis of carpometacarpal (CMC) joint of righ t thumb 08/22/2020 De Quervain's disease (radial styloid tenosynovi tis) 08/22/2020 Rheumatoid arthritis involvi ng multiple sites with positive rheumatoid factor 12/11/2017 Other lobsterman (current) drug therapy 7 Encounter for therapeutic drug level monitoring 08/16/2016 Encounter for monitoring immunomodulating therap y 08/16/2016 10/13/2022 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 Pain in hip 06/19/2012 Pain of hand 06/19/2012 Encounters Date Type Department Care Team Description 05/22/2024 1:45 PM REVENUE STAMP CLERK Office Visit [facility] - Ophthalmology [address] [place] [phone] Ly Plunkett MD Diplopia (Primary Dx); Esotropia 05/22/2024 Travel 05/10/2024 Refill [facility] - Rheumatology [address] [place] [phone] Avis Powell MD MEDICATION REFILL 05/09/2024 Refill [facility] - Rheumatology [address] [place] [phone] Avis Powell MD Refill Request 04/29/2024 Refill [facility] - Rheumatology [address] [place] [phone] Avis Powell MD Refill Request 04/09/2024 1:45 PM REVENUE STAMP CLERK [facility] [address] [place] [phone] Ly Plunkett MD Diplopia (Primary Dx); Esotropia 04/09/2024 Travel 03/19/2024 1:30 PM REVENUE STAMP CLERK [facility] [address] [place] [phone] Ly Plunkett MD Esotropia (Primary Dx); Diplopia 03/19/2024 Travel from Last 3 Months Immunizations Name Administration Dates Next Due INFLUENZA VACCINE 02/16/2019 INFLUENZA VACCINE, HIGH-DOSE , QUADR. (FLUZONE HIGH-DOSE QUADRIVALENT; 65Y+), 0.7 ML (HD-IIV4) 01/27/2021 Family History Medical History Relation Name Comments CAD (Coronary Artery Disease) Brother 1 CAD (Coronary Artery Disease) Brother 2 Arthritis Maternal Grandfather CAD (Coronary Artery Disease) Maternal Grandfather Blindness Neg Hx Cataract Neg Hx Glaucoma Neg Hx Macular Degeneration Neg Hx Relation Name Status Comments Brother 1 Brother 2 Maternal Grandfather Social History Tobacco Use Types Packs/Day Years Used Date Smoking Tobacco: Former Cigarettes 1 5 1 965 - 1970 Smokeless Tobacco: Never Alcohol Use Standard Drinks/Week Comments Yes 7 (1 standard drink = 0.6 oz pur e alcohol) social intake; intake varies PHQ-2 Answer Date Recorded PHQ2 TOTAL SCORE 3 05/19/2022 Sex and Gender Information Value Date Recorded Sex Assigned at Female 08/03/2021 5:20 PM CDT Gender Identity Female 08/03/2021 5:20 PM CDT Sexual Orientation Choose not to disclose 2021 5:20 PM CDT Last Filed Vital Signs Vital Sign Reading Time Taken Comments Blood Pressure 129/75 03/13/2024 10:15 AM REVENUE STAMP CLERK Pulse 73 03/13/2024 10:15 AM REVENUE STAMP CLERK Temperature 36.5 C (97.7 F) 03/13/2024 9:30 AM REVENUE STAMP CLERK Respiratory Rate 14 03/13/2024 10:15 AM REVENUE STAMP CLERK Oxygen Saturation 98% 03/13/2024 10:15 AM REVENUE STAMP CLERK Inhaled Oxygen Concentration - - Weight 69.9 kg (154 lb) 03/13/2024 7:27 AM REVENUE STAMP CLERK Height 162.6 cm (5' 4 ) 03/13/2024 7:27 AM REVENUE STAMP CLERK Body Mass Index 26.43 03/13/2024 7:27 AM REVENUE STAMP CLERK Plan of Treatment Upcoming Encounters Date Type Department Care Team (Late st Contact Info) Description 07/03/2024 3:40 PM REVENUE STAMP CLERK Office Visit [facility] - Rheumatology [address] [place] [phone] Avis Powell MD [address] [place] [address] [place] [phone] 08/21/2024 1:30 PM CDT Office Visit [facility] - Ophthalmology [address] [place] [address], [place] [phone] Ly Plunkett MD [address] [place] [address] [place] [phone] Health Maintenance Due Date Last Done Comments BONE DENSITY TESTING 1945 DTAP/TDAP/TD VACCINES (1 - Tdap) 07/28/1966 PNEUMOCOCCAL VACCINE 50+ (1 of 1 - PCV) 07/28/1997 ZOSTER VACCINE (1 of 2) 07/28/1997 Respiratory Syncytial Virus (RSV) Vaccine Pt: or over 60 yrs (1 - 1-dose 75+ series) 07/28/2022 COVID-19 VACCINE ( - season) 2024 01/25/2022, 08/12/2021, 01/06/2021, Additional history exists INFLUENZA VACCINE (#1) 2024 , 01/27/2021, 02/16/2019 DEPRESSION SCREENING 05/02/2024 05/19/2022 HEPATITIS C SCREENING Completed 06/23/2012 HEPATITIS B VACCINE Aged Out No longe r eligible based on patient's age to complete this topic HIB VACCINE Aged Out No longer eligi ble based on patient's age to complete this topic HPV VACCINE Aged Out No longer eligi ble based on patient's age to complete this topic MENINGOCOCCAL (Group B) VACCINE Aged Out No longer eligible based on patient's age to complete this topic MENINGOCOCCAL VACCINE Aged Out No nusrat maylin eligible based on patient's age to complete this topic Goals Goal Patient Goal Type Associated Problems Recent Progress Patient-Stated? Author Mobility General No change(2020 9:55 AM CDT) No Maria A Lundberg RN Note: Expected end date: 05/01/21 The goal is to maintain or improve your mobility at the optimum level for you. Interventions: Procedures Procedure Name Priority Date/Time Associated Diagnosis Comments HEPATITIS C ANTIBODY Routine 06/23/2012 11:01 AM REVENUE STAMP CLERK from Last 3 Months or Most Recently Relevant to Health Maintenance Results * HEPATITIS C ANTIBODY (06/23/2012 11:01 AM REVENUE STAMP CLERK) Hepatitis C Antibody NON-REACTI VE NON-REACT [facility] ([facility]) Signal/Cutoff 0.04 <1.00 [facility] ([facility]) Comment: Test Performed at: [employer] [facility] [id number] [id number] GAUTAM YO DO,MPH 06/23/2012 11:0 1 AM REVENUE STAMP CLERK 06/23/2012 11:04 AM REVENUE STAMP CLERK [facility] - CHEMISTRY MIKA BAUTISTA [facility] ([facility]) from Last 3 Months or Most Recently Relevant to Health Maintenance Care Teams Dining Room Busser Relationship Specialty Start Date End Date Rema Sorenson APRN-DIANA [address] [place] [phone] PCP - General Nurse Practitioner 02/13/24
--- OUTSIDE RECORDS SUMMARY | 2024-06-14 00:33 | XMS_ITS | Clinical Summary ---
Author Organization [facility] [place] [place] [address] Address [address] [place] [address] Care Team Providers Care Sr. Vendor Management Associate Name Role Phone Diana Cooney MD Primary Care Provider [phone] Allergies No known active allergies Surgical History Surgery Date Site/Laterality Comments VAGINA SURGERY Vaginal Surgery - Cystocele & prolapse repair 03/30/10, Excision of mesh 10/05/10 (Added by TW Conv) Medical History Medical History Date Comments Personal history of other di seases of the circulatory system History of hypertension - (A dded by TW Conv) Personal history of other me ntal and behavioral disorders History of depression - (Add ed by TW Conv) Personal history of malignan t melanoma of skin History of malignant melanom a of skin - Superficial 2008 (Added by TW Conv) Social History Tobacco Use Types Packs/Day Years Used Date Smoking Tobacco: Former Comments Unknown Sex and Gender Information Value Date Recorded Sex Assigned at Not on file Legal Sex Female 3:17 AM BEHAVIORAL THERAPIST Gender Identity Not on file Sexual Orientation Not on file Obstetrics History Plan of Treatment [place] [id number] [employer] [facility] Care Teams Sr. Vendor Management Associate Relationship Specialty Start Date End Date Diana Cooney MD [address] [place] [phone] PCP - General Family Medicine 12/12/18
--- OUTSIDE RECORDS SUMMARY | 2024-06-14 00:33 | XMS_ITS | Referral Summary ---
Author Organization [facility] Address [address] [facility] [place] [address] Care Team Providers Care Production Support Analyst Name Role Phone Rema Sorenson APRN-SHUTTLE INSPECTOR Primary Care Provider + Source Comments [facility],non-owned Affiliates and Associated Physician Practices is amultiple site organization consisting of ambulatory clinics and hospital sitesin [place], [place], [place] and [place]. This disclosure is being madepursuant to the Care Everywhere program and may not contain all information available regarding this patient. Last updated 18.[facility] Encounters Date Type Department Care Team Description 05/22/2024 Travel 05/22/2024 1:45 PM BOILER SHOP MECHANIC Office Visit [facility] - Ophthalmology [address] [place] [phone] Ly Plunkett MD Diplopia (Primary Dx); Esotropia 05/10/2024 Refill [facility] - Rheumatology [address] [place] [phone] Avis Powell MD MEDICATION REFILL 05/09/2024 Refill [facility] - Rheumatology [address] [place] [phone] Avis Powell MD Refill Request 04/29/2024 Refill [facility] - Rheumatology [address] [place] [phone] Avis Powell MD Refill Request 04/09/2024 Travel 04/09/2024 1:45 PM BOILER SHOP MECHANIC Office Visit [facility] - Ophthalmology [address] [place] [phone] Ly Plunkett MD Diplopia (Primary Dx); Esotropia 03/19/2024 Travel 03/19/2024 1:30 PM BOILER SHOP MECHANIC Office Visit [facility] - Ophthalmology [address] [place] [phone] Ly Plunkett MD Esotropia (Primary Dx); Diplopia from Last 3 Months Allergies No known active allergies Medications * Be aware that medications may not be up to date on this document. Alwaysverify current medications with the patient. Medication Sig Dispensed Refills Start Date End Date Status traZODone (DESYREL) 100 MG tablet Take 1 (one) tablet by mouth at bedtime 3 11/10/2017 Active fluticasone propionate (FLONASE) 50 MCG/ACT nasal spray [place] 2 (two) sprays into each nostril once [...] daily 5 mL 03/13/2024 Active HYDROcodone-acetami nophen ([place]) 5-325 MG tabletIndications:S /P eye surgery Take [...] sites with positive rheumatoid factor 12/11/2017 Other fdc (current) drug therapy 7 Encounter for therapeutic drug level monitoring 08/16/2016 Encounter for monitoring immunomodulating therap y 08/16/2016 10/13/2022 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 (FLUZONE HIGH-DOSE QUADRIVALENT; 65Y+), 0.7 ML (HD-IIV4) 01/27/2021 Social History Tobacco Use Types Packs/Day Years [...] Comments Blood Pressure 129/75 03/13/2024 10:15 AM BOILER SHOP MECHANIC Pulse 73 03/13/2024 10:15 AM BOILER SHOP MECHANIC Temperature 36.5 C (97.7 F) 03/13/2024 9:30 AM BOILER SHOP MECHANIC Respiratory Rate 14 03/13/2024 10:15 AM BOILER SHOP MECHANIC Oxygen Saturation 98% 03/13/2024 10:15 AM BOILER SHOP MECHANIC Inhaled Oxygen Concentration - - Weight 69.9 kg (154 lb) 03/13/2024 7:27 AM BOILER SHOP MECHANIC Height 162.6 cm (5' 4 ) 03/13/2024 7:27 AM BOILER SHOP MECHANIC Body Mass Index 26.43 03/13/2024 7:27 AM BOILER SHOP MECHANIC Plan of Treatment Upcoming Encounters Date Type Department Care Team (Late st Contact Info) Description 07/03/2024 3:40 PM BOILER SHOP MECHANIC Office Visit [facility] - Rheumatology [address] [place] [phone] Avis Powell MD [address] [place] [address] [place] [phone] 08/21/2024 1:30 PM CDT Office Visit [facility] - Ophthalmology [address] [place] [phone] Ly Plunkett MD [address] [place] [address] [place] [phone] Goals Goal Patient Goal Type Associated Problems Recent Progress Patient-Stated? Author Mobility General No change(2020 9:55 AM CDT) Maria A Patel, RN Note: Expected end date: 05/01/21 The goal is to maintain or improve your mobility at the optimum level for you. Interventions: Procedures Procedure Name Priority Date/Time Associated Diagnosis Comments HEPATITIS C ANTIBODY Routine 06/23/2012 11:01 AM BOILER SHOP MECHANIC from Last 3 Months or Most Recently Relevant to Health Maintenance Results * HEPATITIS C ANTIBODY (06/23/2012 11:01 AM BOILER SHOP MECHANIC) Hepatitis C Antibody NON-REACTI VE NON-REACT [facility] ([facility]) Signal/Cutoff 0.04 <1.00 [facility] ([facility]) Comment: Test Performed at: [employer] [id number] [place] [address] GAUTAM YO DO,MPH 06/23/2012 11:0 1 AM BOILER SHOP MECHANIC 06/23/2012 11:04 AM BOILER SHOP MECHANIC Vibha Sheyla [facility] - CHEMISTRY MIKA BAUTISTA [facility] ([facility]) from Last 3 Months or Most Recently Relevant to Health Maintenance Care Teams Production Support Analyst Relationship Specialty Start Date End Date Rema Sorenson APRN-SHUTTLE INSPECTOR [address] [place] [phone] PCP - General Nurse Practitioner 02/13/24
--- OUTSIDE RECORDS SUMMARY | 2024-06-14 00:33 | XMS_ITS | Patient Health Summary ---
Author Organization [facility] Address [address] [place] [address] Care Team Providers Care Business Line Controller Name Role Phone Rema Sorenson KALEB-PECAN PICKER Primary Care Provider + Note from [facility],non-owned Affiliates and Associated Physician Practices is amultiple site organization consisting of ambulatory clinics and hospital sitesin [place], [place], [place] and [place]. This disclosure is being madepursuant to the Care Everywhere program and may not contain all information available regarding this patient. Last updated 18.[facility] Allergies No known active allergies Medications * Be aware that medications may not be up to date on this document. Alwaysverify current medications with the patient. * traZODone (DESYREL) 100 MG tablet(Started 11/10/2017) Take 1 (one) tablet by mouth at bedtime 3 refills left * fluticasone propionate (FLONASE) 50 MCG/ACT nasal spray(Started 07/26/2017) [place] 2 (two) sprays into each nostril once daily 6 refills left * fexofenadine (XIAO) 180 MG tablet Take 1 (one) tablet by mouth once daily * estradiol (ESTRACE) 0.1 MG/GM vaginal cream(Started 04/21/2015) Insert 2 g into the vagina every 2 days * losartan (COZAAR) 50 MG tablet(Started 08/06/2019) Take 1 (one) tablet by mouth at bedtime * alendronate (Fosamax) 70 MG tablet(Started 04/13/2022) TAKE 1 TABLET BY MOUTH EVERY WEEK * Venlafaxine HCl (venlafaxine ER 24hr) 225 MG tablet Take 1 (one) tablet by mouth daily with breakfast * tiZANidine (Zanaflex) 4 MG tablet(Started 08/17/2023) TAKE 1 TABLET BY MOUTH EVERY 8 HOURS NEEDED FOR MUSCLE SPASMS 5 refills by 08/16/2024 * exbrjueg-gyayxzkch-extirscj (Maxitrol) ophthalmic ointment(Started 10/13/2023) APPLY SMALL AMOUNT IN BOTH EYES EVERY NIGHT AT BEDTIME * folic acid (Folvite) 1 MG tablet(Started 11/16/2023) Take 1 (one) tablet by mouth once daily 2 refills by 11/15/2024 * Hyrimoz 40 MG/0.4ML injection(Started 02/22/2024) INJECT 1 SYRINGE UNDER THE SKIN EVERY 14 DAYS 3 refills by 02/21/2025 * nitrofurantoin monohyd macro crystals (Macrobid) 100 MG capsule(Started 03/08/2024) * prednisoLONE acetate (Pred Forte) 1 % ophthalmic suspension(Started 03/14/2024) Instill 1 (one) drop into both eyes 4 times daily * tobramycin (Tobrex) 0.3 % ophthalmic solution(Started 03/13/2024) Instill 1 (one) drop into both eyes 4 times daily * HYDROcodone-acetaminophen (Alsea) 5-325 MG tablet(Started 03/13/2024) Take 1 (one) tablet by mouth every 6 hours as needed for Pain * methotrexate 2.5 MG tablet(Started 04/30/2024) TAKE 8 TABLETS BY MOUTH ONCE EVERY 7 DAYS 1 refill by 04/30/2025 * hydroxychloroquine (Plaquenil) 200 MG tablet(Started 05/10/2024) Take 1.5 (one and one-half) tablets by mouth once daily Active Problems Problem Noted Date Diagnosed Date Arthritis of carpometacarpal (CMC) joint of righ t thumb 08/22/2020 De Quervain's disease (radial styloid tenosynovi tis) 08/22/2020 Rheumatoid arthritis involvi ng multiple sites with positive rheumatoid factor 12/11/2017 Other oysterman (current) drug therapy 7 Encounter for therapeutic drug level monitoring 08/16/2016 Encounter for monitoring immunomodulating therap y 08/16/2016 10/13/2022 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 Pain in hip 06/19/2012 Pain of hand 06/19/2012 Immunizations * INFLUENZA VACCINE(Given 02/16/2019) * INFLUENZA VACCINE, HIGH-DOSE, QUADR. (FLUZONE HIGH-DOSE QUADRIVALENT; 65Y+), 0.7 ML (HD-IIV4)(Given 01/27/2021) Social History Tobacco Use Types Packs/Day Years [...] Comments Blood Pressure 129/75 03/13/2024 10:15 AM [employer] [employer] Pulse 73 03/13/2024 10:15 AM [facility] Temperature 36.5 C (97.7 F) 03/13/2024 9:30 AM [facility] Respiratory Rate 14 03/13/2024 10:15 AM [facility] Oxygen Saturation 98% 03/13/2024 10:15 AM [facility] Inhaled Oxygen Concentration - - Weight 69.9 kg (154 lb) 03/13/2024 7:27 AM [facility] Height 162.6 cm (5' 4 ) 03/13/2024 7:27 AM [facility] Body Mass Index 26.43 03/13/2024 7:27 AM [facility] Procedures * LARYNGEAL MASK AIRWAY(Performed 03/13/2024) * MN STRABISMUS SURG,PLACE ADJUST SUTURE(Performed 03/13/2024) Performed for Diplopia, Esotropia * MN STRABISMUS SURG,ONE HORIZ MUSCLE(Performed 03/13/2024) Performed for Diplopia, Esotropia * URINALYSIS W/MICROSCOPIC REFLEX TO CULTURE(Performed 03/09/2024) Performed for Rheumatoid arthritis involving multiple sites with positive rheumatoid factor (HCC), Encounter for long-term (current) use of high-risk medication, Other oysterman (current) drug therapy * ERYTHROCYTE SEDIMENTATION RATE(Performed 03/09/2024) Performed for Rheumatoid arthritis involving multiple sites with positive rheumatoid factor (HCC), Encounter for long-term (current) use of high-risk medication, Other senior living (current) drug therapy * C-REACTIVE PROTEIN(Performed 03/09/2024) Performed for Rheumatoid arthritis involving multiple sites with positive rheumatoid factor (HCC), Encounter for long-term (current) use of high-risk medication, Other senior living (current) drug therapy * COMPREHENSIVE METABOLIC PANEL(Performed 03/09/2024) Performed for Rheumatoid arthritis involving multiple sites with positive rheumatoid factor (HCC), Encounter for long-term (current) use of high-risk medication, Other senior living (current) drug therapy * CBC W AUTO DIFFERENTIAL(Performed 03/09/2024) Performed for Rheumatoid arthritis involving multiple sites with positive rheumatoid factor (HCC), Encounter for long-term (current) use of high-risk medication, Other senior living (current) drug therapy * CULTURE URINE(Performed 03/09/2024) * CULTURE URINE REFLEXED II(Performed 03/09/2024) * MRI ORBITS OR FACE WWO CONTRAST(Performed 02/28/2024) Performed for Diplopia * MRI BRAIN WWO CONTRAST(Performed 02/28/2024) Performed for Diplopia * CREATININE - POCT INTERFACED(Performed 02/28/2024) * EYE EXAM(Performed 12/06/2023) * XR CERVICAL SPINE 2 OR 3VW(Performed 11/16/2023) Performed for Screening-pulmonary TB, Rheumatoid arthritis involving multiple sites with positive rheumatoid factor (HCC), Encounter for long-term (current) use of high-risk medication, Other senior living (current) drug therapy, Chronic neck pain * XR CHEST 2VW(Performed 11/16/2023) Performed for Screening-pulmonary TB, Rheumatoid arthritis involving multiple sites with positive rheumatoid factor (HCC), Encounter for long-term (current) use of high-risk medication, Other o[facility]erman (current) drug therapy, Chronic neck pain * C-REACTIVE PROTEIN(Performed 11/14/2023) * URINALYSIS W/MICROSCOPIC REFLEX TO CULTURE(Performed 11/14/2023) * CBC W AUTO DIFFERENTIAL(Performed 11/14/2023) * ERYTHROCYTE SEDIMENTATION RATE(Performed 11/14/2023) * COMPREHENSIVE METABOLIC PANEL(Performed 11/14/2023) * CULTURE URINE(Performed 11/14/2023) * CULTURE URINE REFLEXED II(Performed 11/14/2023) * C-REACTIVE PROTEIN(Performed 08/02/2023) * CBC W AUTO DIFFERENTIAL(Performed 08/02/2023) * ERYTHROCYTE SEDIMENTATION RATE(Performed 08/02/2023) * COMPREHENSIVE METABOLIC PANEL(Performed 08/02/2023) * C-REACTIVE PROTEIN(Performed 03/04/2023) * URINALYSIS W/MICROSCOPIC REFLEX TO CULTURE(Performed 03/04/2023) * CBC W AUTO DIFFERENTIAL(Performed 03/04/2023) * ERYTHROCYTE SEDIMENTATION RATE(Performed 03/04/2023) * COMPREHENSIVE METABOLIC PANEL(Performed 03/04/2023) * CULTURE URINE(Performed 03/04/2023) * CULTURE URINE REFLEXED II(Performed 03/04/2023) * C-REACTIVE PROTEIN(Performed 11/25/2022) * URINALYSIS W/MICROSCOPIC REFLEX TO CULTURE(Performed 11/25/2022) * CBC W AUTO DIFFERENTIAL(Performed 11/25/2022) * ERYTHROCYTE SEDIMENTATION RATE(Performed 11/25/2022) * COMPREHENSIVE METABOLIC PANEL(Performed 11/25/2022) * CULTURE URINE(Performed 11/25/2022) * CULTURE URINE REFLEXED II(Performed 11/25/2022) * QUANTIFERON-TB GOLD PLUS 4-TUBE(Performed 10/13/2022) Performed for Seropositive rheumatoid arthritis of multiple sites (HCC) * XR CHEST 2VW(Performed 10/13/2022) Performed for Rheumatoid arthritis involving multiple sites with positive rheumatoid factor (HCC), Encounter for long-term (current) use of high-risk medication, Other senior living (current) drug therapy, Screening-pulmonary TB * C-REACTIVE PROTEIN(Performed 05/11/2022) * URINALYSIS W/MICROSCOPIC REFLEX TO CULTURE(Performed 05/11/2022) * CBC W AUTO DIFFERENTIAL(Performed 05/11/2022) * ERYTHROCYTE SEDIMENTATION RATE(Performed 05/11/2022) * COMPREHENSIVE METABOLIC PANEL(Performed 05/11/2022) * CULTURE URINE REFLEXED III(Performed 05/11/2022) * URINALYSIS W/MICROSCOPIC REFLEX TO CULTURE(Performed 03/22/2022) Performed for Rheumatoid arthritis involving multiple sites with positive rheumatoid factor (HCC), Other senior living (current) drug therapy, Encounter for long-term (current) use of high-risk medication * ERYTHROCYTE SEDIMENTATION RATE(Performed 03/22/2022) Performed for Rheumatoid arthritis involving multiple sites with positive rheumatoid factor (HCC), Other senior living (current) drug therapy, Encounter for long-term (current) use of high-risk medication * C-REACTIVE PROTEIN(Performed 03/22/2022) Performed for Rheumatoid arthritis involving multiple sites with positive rheumatoid factor (HCC), Other [facility] (current) drug therapy, Encounter for long-term (current) use of high-risk medication * COMPREHENSIVE METABOLIC PANEL(Performed 03/22/2022) Performed for Rheumatoid arthritis involving multiple sites with positive rheumatoid factor (HCC), Other senior living (current) drug therapy, Encounter for long-term (current) use of high-risk medication * CBC W AUTO DIFFERENTIAL(Performed 03/22/2022) Performed for Rheumatoid arthritis involving multiple sites with positive rheumatoid factor (HCC), Other [facility] (current) drug therapy, Encounter for long-term (current) use of high-risk medication * CULTURE URINE(Performed 03/22/2022) * CULTURE URINE REFLEXED II(Performed 03/22/2022) * URINALYSIS W/MICROSCOPIC REFLEX TO CULTURE(Performed 01/14/2022) Performed for Rheumatoid arthritis involving multiple sites with positive rheumatoid factor (HCC), Other [facility] (current) drug therapy, Encounter for long-term (current) use of high-risk medication * ERYTHROCYTE SEDIMENTATION RATE(Performed 01/14/2022) Performed for Rheumatoid arthritis involving multiple sites with positive rheumatoid factor (HCC), Other senior living (current) drug therapy, Encounter for long-term (current) use of high-risk medication * C-REACTIVE PROTEIN(Performed 01/14/2022) Performed for Rheumatoid arthritis involving multiple sites with positive rheumatoid factor (HCC), Other [facility] (current) drug therapy, Encounter for long-term (current) use of high-risk medication * COMPREHENSIVE METABOLIC PANEL(Performed 01/14/2022) Performed for Rheumatoid arthritis involving multiple sites with positive rheumatoid factor (HCC), Other senior living (current) drug therapy, Encounter for long-term (current) use of high-risk medication * CBC W AUTO DIFFERENTIAL(Performed 01/14/2022) Performed for Rheumatoid arthritis involving multiple sites with positive rheumatoid factor (HCC), Other o[facility] (current) drug therapy, Encounter for long-term (current) use of high-risk medication * CULTURE URINE REFLEXED III(Performed 01/14/2022) * URINALYSIS W/MICROSCOPIC REFLEX TO CULTURE(Performed 11/19/2021) Performed for Rheumatoid arthritis involving multiple sites with positive rheumatoid factor (HCC), Other senior living (current) drug therapy, Encounter for long-term (current) use of high-risk medication * CULTURE URINE(Performed 11/19/2021) * CULTURE URINE REFLEXED II(Performed 11/19/2021) * ERYTHROCYTE SEDIMENTATION RATE(Performed 11/19/2021) Performed for Rheumatoid arthritis involving multiple sites with positive rheumatoid factor (HCC), Other [facility] (current) drug therapy, Encounter for long-term (current) use of high-risk medication * C-REACTIVE PROTEIN(Performed 11/19/2021) Performed for Rheumatoid arthritis involving multiple sites with positive rheumatoid factor (HCC), Other [facility] (current) drug therapy, Encounter for long-term (current) use of high-risk medication * COMPREHENSIVE METABOLIC PANEL(Performed 11/19/2021) Performed for Rheumatoid arthritis involving multiple sites with positive rheumatoid factor (HCC), Other [facility] (current) drug therapy, Encounter for long-term (current) use of high-risk medication * CBC W AUTO DIFFERENTIAL(Performed 11/19/2021) Performed for Rheumatoid arthritis involving multiple sites with positive rheumatoid factor (HCC), Other senior living (current) drug therapy, Encounter for long-term (current) use of high-risk medication * C-REACTIVE PROTEIN(Performed 08/25/2021) * CBC W AUTO DIFFERENTIAL(Performed 08/25/2021) * URINALYSIS W/MICROSCOPIC REFLEX TO CULTURE(Performed 08/25/2021) * ERYTHROCYTE SEDIMENTATION RATE(Performed 08/25/2021) * COMPREHENSIVE METABOLIC PANEL(Performed 08/25/2021) * CULTURE URINE REFLEXED III(Performed 08/25/2021) * PROC INJECTION JOINT (SMALL/INTERMED/MAJOR)(Performed 08/13/2021) Performed for Arthritis of carpometacarpal (CMC) joint of thumb * PROC INJECTION TENDON OR LIGAMENT(Performed 08/13/2021) Performed for Trigger finger of right thumb * URINALYSIS W/MICROSCOPIC REFLEX TO CULTURE(Performed 06/30/2021) Performed for Rheumatoid arthritis involving multiple sites with positive rheumatoid factor (HCC), Other senior living (current) drug therapy, Encounter for long-term (current) use of high-risk medication * ERYTHROCYTE SEDIMENTATION RATE(Performed 06/30/2021) Performed for Rheumatoid arthritis involving multiple sites with positive rheumatoid factor (HCC), Other [facility] (current) drug therapy, Encounter for long-term (current) use of high-risk medication * C-REACTIVE PROTEIN(Performed 06/30/2021) Performed for Rheumatoid arthritis involving multiple sites with positive rheumatoid factor (HCC), Other [facility] (current) drug therapy, Encounter for long-term (current) use of high-risk medication * COMPREHENSIVE METABOLIC PANEL(Performed 06/30/2021) Performed for Rheumatoid arthritis involving multiple sites with positive rheumatoid factor (HCC), Other senior living (current) drug therapy, Encounter for long-term (current) use of high-risk medication * CBC W AUTO DIFFERENTIAL(Performed 06/30/2021) Performed for Rheumatoid arthritis involving multiple sites with positive rheumatoid factor (HCC), Other [facility] (current) drug therapy, Encounter for long-term (current) use of high-risk medication * CULTURE URINE(Performed 06/30/2021) * CULTURE URINE REFLEXED(Performed 06/30/2021) * QUANTIFERON-TB GOLD PLUS 1-TUBE(Performed 06/30/2021) * XR KNEE RIGHT 2VW OR LESS(Performed 06/02/2021) Performed for Rheumatoid arthritis involving multiple sites with positive rheumatoid factor (HCC), Other senior living (current) drug therapy, Encounter for long-term (current) use of high-risk medication * XR KNEE LEFT 2VW OR LESS(Performed 06/02/2021) Performed for Rheumatoid arthritis involving multiple sites with positive rheumatoid factor (HCC), Other senior living (current) drug therapy, Encounter for long-term (current) use of high-risk medication * XR CERVICAL SPINE 2 OR 3VW(Performed 06/02/2021) Performed for Rheumatoid arthritis involving multiple sites with positive rheumatoid factor (HCC), Other [facility] (current) drug therapy, Encounter for long-term (current) use of high-risk medication * XR CHEST 2VW(Performed 06/02/2021) Performed for Rheumatoid arthritis involving multiple sites with positive rheumatoid factor (HCC), Other [facility] (current) drug therapy, Encounter for long-term (current) use of high-risk medication * URINALYSIS W/MICROSCOPIC REFLEX TO CULTURE(Performed 04/15/2021) Performed for Other o[facility] (current) drug therapy, Rheumatoid arthritis involving multiple siteswith positive rheumatoid factor (HCC), Encounter for long-term (current) use of high-risk medication * ERYTHROCYTE SEDIMENTATION RATE(Performed 04/15/2021) Performed for Other senior living (current) drug therapy, Rheumatoid arthritis involving multiple siteswith positive rheumatoid factor (HCC), Encounter for long-term (current) use of high-risk medication * C-REACTIVE PROTEIN(Performed 04/15/2021) Performed for Other [facility] (current) drug therapy, Rheumatoid arthritis involving multiple siteswith positive rheumatoid factor (HCC), Encounter for long-term (current) use of high-risk medication * COMPREHENSIVE METABOLIC PANEL(Performed 04/15/2021) Performed for Other o[facility] (current) drug therapy, Rheumatoid arthritis involving multiple siteswith positive rheumatoid factor (HCC), Encounter for long-term (current) use of high-risk medication * CBC W AUTO DIFFERENTIAL(Performed 04/15/2021) Performed for Other o[facility] (current) drug therapy, Rheumatoid arthritis involving multiple siteswith positive rheumatoid factor (HCC), Encounter for long-term (current) use of high-risk medication * CULTURE URINE(Performed 04/15/2021) * CULTURE URINE REFLEXED II(Performed 04/15/2021) * C-REACTIVE PROTEIN(Performed 01/16/2021) * CBC W AUTO DIFFERENTIAL(Performed 01/16/2021) * ERYTHROCYTE SEDIMENTATION RATE(Performed 01/16/2021) * URINALYSIS W/MICROSCOPIC REFLEX TO CULTURE(Performed 01/16/2021) * COMPREHENSIVE METABOLIC PANEL(Performed 01/16/2021) * CULTURE URINE(Performed 01/16/2021) * CULTURE URINE REFLEXED II(Performed 01/16/2021) * C-REACTIVE PROTEIN(Performed 10/14/2020) * CBC W AUTO DIFFERENTIAL(Performed 10/14/2020) * ERYTHROCYTE SEDIMENTATION RATE(Performed 10/14/2020) * URINALYSIS W/MICROSCOPIC REFLEX TO CULTURE(Performed 10/14/2020) * COMPREHENSIVE METABOLIC PANEL(Performed 10/14/2020) * CULTURE URINE REFLEXED I(Performed 10/14/2020) * PROC INJECTION JOINT (SMALL/INTERMED/MAJOR)(Performed 08/22/2020) Performed for Arthritis of carpometacarpal (CMC) joint of right thumb * URINALYSIS W/MICROSCOPIC REFLEX TO CULTURE(Performed 08/04/2020) Performed for Rheumatoid arthritis involving multiple sites with positive rheumatoid factor (HCC), Encounter for long-term (current) use of high-risk medication, Encounter for therapeutic drug monitoring * ERYTHROCYTE SEDIMENTATION RATE(Performed 08/04/2020) Performed for Rheumatoid arthritis involving multiple sites with positive rheumatoid factor (HCC), Encounter for long-term (current) use of high-risk medication, Encounter for therapeutic drug monitoring * C-REACTIVE PROTEIN(Performed 08/04/2020) Performed for Rheumatoid arthritis involving multiple sites with positive rheumatoid factor (HCC), Encounter for long-term (current) use of high-risk medication, Encounter for therapeutic drug monitoring * COMPREHENSIVE METABOLIC PANEL(Performed 08/04/2020) Performed for Rheumatoid arthritis involving multiple sites with positive rheumatoid factor (HCC), Encounter for long-term (current) use of high-risk medication, Encounter for therapeutic drug monitoring * CBC W AUTO DIFFERENTIAL(Performed 08/04/2020) Performed for Rheumatoid arthritis involving multiple sites with positive rheumatoid factor (HCC), Encounter for long-term (current) use of high-risk medication, Encounter for therapeutic drug monitoring * CULTURE URINE(Performed 08/04/2020) * CULTURE URINE REFLEXED(Performed 08/04/2020) * XR HAND RIGHT 3VW OR MORE(Performed 07/25/2020) Performed for Pain of right hand * QUANTIFERON-TB GOLD PLUS 1-TUBE(Performed 05/15/2020) * URINALYSIS W/MICROSCOPIC REFLEX TO CULTURE(Performed 05/15/2020) Performed for Rheumatoid arthritis involving multiple sites with positive rheumatoid factor (HCC), Encounter for long-term (current) use of high-risk medication, Encounter for therapeutic drug monitoring * ERYTHROCYTE SEDIMENTATION RATE(Performed 05/15/2020) Performed for Rheumatoid arthritis involving multiple sites with positive rheumatoid factor (HCC), Encounter for long-term (current) use of high-risk medication, Encounter for therapeutic drug monitoring * C-REACTIVE PROTEIN(Performed 05/15/2020) Performed for Rheumatoid arthritis involving multiple sites with positive rheumatoid factor (HCC), Encounter for long-term (current) use of high-risk medication, Encounter for therapeutic drug monitoring * COMPREHENSIVE METABOLIC PANEL(Performed 05/15/2020) Performed for Rheumatoid arthritis involving multiple sites with positive rheumatoid factor (HCC), Encounter for long-term (current) use of high-risk medication, Encounter for therapeutic drug monitoring * CBC W AUTO DIFFERENTIAL(Performed 05/15/2020) Performed for Rheumatoid arthritis involving multiple sites with positive rheumatoid factor (HCC), Encounter for long-term (current) use of high-risk medication, Encounter for therapeutic drug monitoring * CULTURE URINE REFLEXED I(Performed 05/15/2020) * C-REACTIVE PROTEIN(Performed 02/18/2020) * CBC W AUTO DIFFERENTIAL(Performed 02/18/2020) * URINALYSIS W/MICROSCOPIC REFLEX TO CULTURE(Performed 02/18/2020) * ERYTHROCYTE SEDIMENTATION RATE(Performed 02/18/2020) * COMPREHENSIVE METABOLIC PANEL(Performed 02/18/2020) * CULTURE URINE REFLEXED I(Performed 02/18/2020) * EYE EXAM(Performed 01/17/2020) * URINALYSIS W/MICROSCOPIC REFLEX TO CULTURE(Performed 11/29/2019) Performed for Rheumatoid arthritis involving multiple sites with positive rheumatoid factor (HCC), Encounter for long-term (current) use of high-risk medication, Encounter for therapeutic drug monitoring * ERYTHROCYTE SEDIMENTATION RATE(Performed 11/29/2019) Performed for Rheumatoid arthritis involving multiple sites with positive rheumatoid factor (HCC), Encounter for long-term (current) use of high-risk medication, Encounter for therapeutic drug monitoring * C-REACTIVE PROTEIN(Performed 11/29/2019) Performed for Rheumatoid arthritis involving multiple sites with positive rheumatoid factor (HCC), Encounter for long-term (current) use of high-risk medication, Encounter for therapeutic drug monitoring * COMPREHENSIVE METABOLIC PANEL(Performed 11/29/2019) Performed for Rheumatoid arthritis involving multiple sites with positive rheumatoid factor (HCC), Encounter for long-term (current) use of high-risk medication, Encounter for therapeutic drug monitoring * CBC W AUTO DIFFERENTIAL(Performed 11/29/2019) Performed for Rheumatoid arthritis involving multiple sites with positive rheumatoid factor (HCC), Encounter for long-term (current) use of high-risk medication, Encounter for therapeutic drug monitoring * CULTURE URINE REFLEXED I(Performed 11/29/2019) * EYE EXAM(Performed 09/12/2019) * C-REACTIVE PROTEIN(Performed 09/12/2019) * URINALYSIS W/MICROSCOPIC REFLEX TO CULTURE(Performed 09/12/2019) * COMPREHENSIVE METABOLIC PANEL(Performed 09/12/2019) * ERYTHROCYTE SEDIMENTATION RATE(Performed 09/12/2019) * CBC W AUTO DIFFERENTIAL(Performed 09/12/2019) * CULTURE URINE(Performed 09/12/2019) * CULTURE URINE REFLEXED(Performed 09/12/2019) * C-REACTIVE PROTEIN(Performed 07/05/2019) * ERYTHROCYTE SEDIMENTATION RATE(Performed 07/05/2019) * COMPREHENSIVE METABOLIC PANEL(Performed 07/05/2019) * URINALYSIS W/MICROSCOPIC REFLEX TO CULTURE(Performed 07/05/2019) * CBC W AUTO DIFFERENTIAL(Performed 07/05/2019) * CULTURE URINE REFLEXED I(Performed 07/05/2019) * URINALYSIS W/MICROSCOPIC REFLEX TO CULTURE(Performed 03/26/2019) Performed for Rheumatoid arthritis involving multiple sites with positive rheumatoid factor (HCC), Encounter for long-term (current) use of high-risk medication, Encounter for therapeutic drug monitoring * C-REACTIVE PROTEIN(Performed 03/26/2019) Performed for Rheumatoid arthritis involving multiple sites with positive rheumatoid factor (HCC), Encounter for long-term (current) use of high-risk medication, Encounter for therapeutic drug monitoring * ERYTHROCYTE SEDIMENTATION RATE(Performed 03/26/2019) Performed for Rheumatoid arthritis involving multiple sites with positive rheumatoid factor (HCC), Encounter for long-term (current) use of high-risk medication, Encounter for therapeutic drug monitoring * COMPREHENSIVE METABOLIC PANEL(Performed 03/26/2019) Performed for Rheumatoid arthritis involving multiple sites with positive rheumatoid factor (HCC), Encounter for long-term (current) use of high-risk medication, Encounter for therapeutic drug monitoring * CBC W AUTO DIFFERENTIAL(Performed 03/26/2019) Performed for Rheumatoid arthritis involving multiple sites with positive rheumatoid factor (HCC), Encounter for long-term (current) use of high-risk medication, Encounter for therapeutic drug monitoring * CULTURE URINE(Performed 03/26/2019) * CULTURE URINE REFLEXED(Performed 03/26/2019) * URINALYSIS W/MICROSCOPIC REFLEX TO CULTURE(Performed 01/18/2019) Performed for Rheumatoid arthritis involving multiple sites with positive rheumatoid factor (HCC), Encounter for long-term (current) use of high-risk medication, Encounter for therapeutic drug monitoring * C-REACTIVE PROTEIN(Performed 01/18/2019) Performed for Rheumatoid arthritis involving multiple sites with positive rheumatoid factor (HCC), Encounter for long-term (current) use of high-risk medication, Encounter for therapeutic drug monitoring * ERYTHROCYTE SEDIMENTATION RATE(Performed 01/18/2019) Performed for Rheumatoid arthritis involving multiple sites with positive rheumatoid factor (HCC), Encounter for long-term (current) use of high-risk medication, Encounter for therapeutic drug monitoring * COMPREHENSIVE METABOLIC PANEL(Performed 01/18/2019) Performed for Rheumatoid arthritis involving multiple sites with positive rheumatoid factor (HCC), Encounter for long-term (current) use of high-risk medication, Encounter for therapeutic drug monitoring * CBC W AUTO DIFFERENTIAL(Performed 01/18/2019) Performed for Rheumatoid arthritis involving multiple sites with positive rheumatoid factor (HCC), Encounter for long-term (current) use of high-risk medication, Encounter for therapeutic drug monitoring * CULTURE URINE REFLEXED I(Performed 01/18/2019) * XR CHEST 2VW(Performed 12/12/2018) Performed for Rheumatoid arthritis involving multiple sites with positive rheumatoid factor (HCC), Encounter for long-term (current) use of high-risk medication, Encounter for therapeutic drug monitoring * URINALYSIS W/MICROSCOPIC REFLEX TO CULTURE(Performed 11/01/2018) Performed for Rheumatoid arthritis involving multiple sites with positive rheumatoid factor (HCC), Encounter for therapeutic drug level monitoring, Other senior living (current) drug therapy * ERYTHROCYTE SEDIMENTATION RATE(Performed 11/01/2018) Performed for Rheumatoid arthritis involving multiple sites with positive rheumatoid factor (HCC), Encounter for therapeutic drug level monitoring, Other senior living (current) drug therapy * C-REACTIVE PROTEIN(Performed 11/01/2018) Performed for Rheumatoid arthritis involving multiple sites with positive rheumatoid factor (HCC), Encounter for therapeutic drug level monitoring, Other [facility] (current) drug therapy * COMPREHENSIVE METABOLIC PANEL(Performed 11/01/2018) Performed for Rheumatoid arthritis involving multiple sites with positive rheumatoid factor (HCC), Encounter for therapeutic drug level monitoring, Other senior living (current) drug therapy * CBC W AUTO DIFFERENTIAL(Performed 11/01/2018) Performed for Rheumatoid arthritis involving multiple sites with positive rheumatoid factor (HCC), Encounter for therapeutic drug level monitoring, Other senior living (current) drug therapy * CULTURE URINE REFLEXED I(Performed 11/01/2018) * URINALYSIS W/MICROSCOPIC REFLEX TO CULTURE(Performed 08/28/2018) Performed for Rheumatoid arthritis involving multiple sites with positive rheumatoid factor (HCC), Encounter for therapeutic drug level monitoring, Other [facility] (current) drug therapy * ERYTHROCYTE SEDIMENTATION RATE(Performed 08/28/2018) Performed for Rheumatoid arthritis involving multiple sites with positive rheumatoid factor (HCC), Encounter for therapeutic drug level monitoring, Other [facility] (current) drug therapy * C-REACTIVE PROTEIN(Performed 08/28/2018) Performed for Rheumatoid arthritis involving multiple sites with positive rheumatoid factor (HCC), Encounter for therapeutic drug level monitoring, Other senior living (current) drug therapy * COMPREHENSIVE METABOLIC PANEL(Performed 08/28/2018) Performed for Rheumatoid arthritis involving multiple sites with positive rheumatoid factor (HCC), Encounter for therapeutic drug level monitoring, Other senior living (current) drug therapy * CBC W AUTO DIFFERENTIAL(Performed 08/28/2018) Performed for Rheumatoid arthritis involving multiple sites with positive rheumatoid factor (HCC), Encounter for therapeutic drug level monitoring, Other [facility] (current) drug therapy * CULTURE URINE(Performed 08/28/2018) * CULTURE URINE REFLEXED(Performed 08/28/2018) * URINALYSIS W/MICROSCOPIC REFLEX TO CULTURE(Performed 06/22/2018) Performed for Rheumatoid arthritis involving multiple sites with positive rheumatoid factor (HCC), Encounter for therapeutic drug level monitoring, Other senior living (current) drug therapy * CULTURE URINE REFLEXED I(Performed 06/22/2018) * ERYTHROCYTE SEDIMENTATION RATE(Performed 06/22/2018) Performed for Rheumatoid arthritis involving multiple sites with positive rheumatoid factor (HCC), Encounter for therapeutic drug level monitoring, Other senior living (current) drug therapy * C-REACTIVE PROTEIN(Performed 06/22/2018) Performed for Rheumatoid arthritis involving multiple sites with positive rheumatoid factor (HCC), Encounter for therapeutic drug level monitoring, Other senior living (current) drug therapy * COMPREHENSIVE METABOLIC PANEL(Performed 06/22/2018) Performed for Rheumatoid arthritis involving multiple sites with positive rheumatoid factor (HCC), Encounter for therapeutic drug level monitoring, Other [facility] (current) drug therapy * CBC W AUTO DIFFERENTIAL(Performed 06/22/2018) Performed for Rheumatoid arthritis involving multiple sites with positive rheumatoid factor (HCC), Encounter for therapeutic drug level monitoring, Other [facility] (current) drug therapy * QUANTIFERON-TB GOLD PLUS 1-TUBE(Performed 06/22/2018) * URINALYSIS W/MICROSCOPIC NO CULTURE(Performed 04/18/2018) * ERYTHROCYTE SEDIMENTATION RATE(Performed 04/18/2018) Performed for Rheumatoid arthritis with positive rheumatoid factor, involving unspecified site (HCC), Encounter for long-term (current) use of high-risk medication, Encounter for monitoring immunomodulating therapy * COMPREHENSIVE METABOLIC PANEL(Performed 04/18/2018) Performed for Rheumatoid arthritis with positive rheumatoid factor, involving unspecified site (HCC), Encounter for long-term (current) use of high-risk medication, Encounter for monitoring immunomodulating therapy * C-REACTIVE PROTEIN(Performed 04/18/2018) Performed for Rheumatoid arthritis with positive rheumatoid factor, involving unspecified site (HCC), Encounter for long-term (current) use of high-risk medication, Encounter for monitoring immunomodulating therapy * CBC W AUTO DIFFERENTIAL(Performed 04/18/2018) Performed for Rheumatoid arthritis with positive rheumatoid factor, involving unspecified site (HCC), Encounter for long-term (current) use of high-risk medication, Encounter for monitoring immunomodulating therapy * URINALYSIS W/MICROSCOPIC REFLEX TO CULTURE(Performed 02/15/2018) * ERYTHROCYTE SEDIMENTATION RATE(Performed 02/15/2018) Performed for Rheumatoid arthritis with positive rheumatoid factor, involving unspecified site (HCC), Encounter for long-term (current) use of high-risk medication, Encounter for monitoring immunomodulating therapy * COMPREHENSIVE METABOLIC PANEL(Performed 02/15/2018) Performed for Rheumatoid arthritis with positive rheumatoid factor, involving unspecified site (HCC), Encounter for long-term (current) use of high-risk medication, Encounter for monitoring immunomodulating therapy * C-REACTIVE PROTEIN(Performed 02/15/2018) Performed for Rheumatoid arthritis with positive rheumatoid factor, involving unspecified site (HCC), Encounter for long-term (current) use of high-risk medication, Encounter for monitoring immunomodulating therapy * CBC W AUTO DIFFERENTIAL(Performed 02/15/2018) Performed for Rheumatoid arthritis with positive rheumatoid factor, involving unspecified site (HCC), Encounter for long-term (current) use of high-risk medication, Encounter for monitoring immunomodulating therapy * CULTURE URINE REFLEXED I(Performed 02/15/2018) * URINALYSIS W/MICROSCOPIC REFLEX TO CULTURE(Performed 12/14/2017) * ERYTHROCYTE SEDIMENTATION RATE(Performed 12/14/2017) Performed for Rheumatoid arthritis with positive rheumatoid factor, involving unspecified site (HCC), Encounter for long-term (current) use of high-risk medication, Encounter for monitoring immunomodulating therapy * COMPREHENSIVE METABOLIC PANEL(Performed 12/14/2017) Performed for Rheumatoid arthritis with positive rheumatoid factor, involving unspecified site (HCC), Encounter for long-term (current) use of high-risk medication, Encounter for monitoring immunomodulating therapy * C-REACTIVE PROTEIN(Performed 12/14/2017) Performed for Rheumatoid arthritis with positive rheumatoid factor, involving unspecified site (HCC), Encounter for long-term (current) use of high-risk medication, Encounter for monitoring immunomodulating therapy * CBC W AUTO DIFFERENTIAL(Performed 12/14/2017) Performed for Rheumatoid arthritis with positive rheumatoid factor, involving unspecified site (HCC), Encounter for long-term (current) use of high-risk medication, Encounter for monitoring immunomodulating therapy * CULTURE URINE REFLEXED I(Performed 12/14/2017) * ERYTHROCYTE SEDIMENTATION RATE(Performed 10/18/2017) Performed for Rheumatoid arthritis with positive rheumatoid factor, involving unspecified site (HCC), Encounter for long-term (current) use of high-risk medication, Encounter for monitoring immunomodulating therapy * COMPREHENSIVE METABOLIC PANEL(Performed 10/18/2017) Performed for Rheumatoid arthritis with positive rheumatoid factor, involving unspecified site (HCC), Encounter for long-term (current) use of high-risk medication, Encounter for monitoring immunomodulating therapy * C-REACTIVE PROTEIN(Performed 10/18/2017) Performed for Rheumatoid arthritis with positive rheumatoid factor, involving unspecified site (HCC), Encounter for long-term (current) use of high-risk medication, Encounter for monitoring immunomodulating therapy * CBC W AUTO DIFFERENTIAL(Performed 10/18/2017) Performed for Rheumatoid arthritis with positive rheumatoid factor, involving unspecified site (HCC), Encounter for long-term (current) use of high-risk medication, Encounter for monitoring immunomodulating therapy * C-REACTIVE PROTEIN(Performed 08/10/2017) * CBC W AUTO DIFFERENTIAL(Performed 08/10/2017) * URINALYSIS W/MICROSCOPIC REFLEX TO CULTURE(Performed 08/10/2017) * COMPREHENSIVE METABOLIC PANEL(Performed 08/10/2017) * ERYTHROCYTE SEDIMENTATION RATE(Performed 08/10/2017) * CULTURE URINE REFLEXED I(Performed 08/10/2017) * C-REACTIVE PROTEIN(Performed 06/13/2017) * CBC W AUTO DIFFERENTIAL(Performed 06/13/2017) * URINALYSIS W/MICROSCOPIC REFLEX TO CULTURE(Performed 06/13/2017) * ERYTHROCYTE SEDIMENTATION RATE(Performed 06/13/2017) * COMPREHENSIVE METABOLIC PANEL(Performed 06/13/2017) * CBC W AUTO DIFFERENTIAL(Performed 06/13/2017) * URINALYSIS W/MICROSCOPIC REFLEX TO CULTURE(Performed 06/13/2017) * ERYTHROCYTE SEDIMENTATION RATE(Performed 06/13/2017) * COMPREHENSIVE METABOLIC PANEL(Performed 06/13/2017) * CBC W AUTO DIFFERENTIAL(Performed 06/13/2017) * URINALYSIS W/MICROSCOPIC REFLEX TO CULTURE(Performed 06/13/2017) * ERYTHROCYTE SEDIMENTATION RATE(Performed 06/13/2017) * COMPREHENSIVE METABOLIC PANEL(Performed 06/13/2017) * CBC W AUTO DIFFERENTIAL(Performed 06/13/2017) * URINALYSIS W/MICROSCOPIC REFLEX TO CULTURE(Performed 06/13/2017) * COMPREHENSIVE METABOLIC PANEL(Performed 06/13/2017) * CBC W AUTO DIFFERENTIAL(Performed 06/13/2017) * COMPREHENSIVE METABOLIC PANEL(Performed 06/13/2017) * COMPREHENSIVE METABOLIC PANEL(Performed 06/13/2017) * C-REACTIVE PROTEIN(Performed 04/07/2017) * URINALYSIS W/MICROSCOPIC REFLEX TO CULTURE(Performed 04/07/2017) * COMPREHENSIVE METABOLIC PANEL(Performed 04/07/2017) * URINALYSIS W/MICROSCOPIC REFLEX TO CULTURE(Performed 04/07/2017) * CBC W AUTO DIFFERENTIAL(Performed 04/07/2017) * ERYTHROCYTE SEDIMENTATION RATE(Performed 04/07/2017) * CBC W AUTO DIFFERENTIAL(Performed 12/28/2016) * URINALYSIS W/MICROSCOPIC REFLEX TO CULTURE(Performed 12/28/2016) * C-REACTIVE PROTEIN(Performed 12/28/2016) * ERYTHROCYTE SEDIMENTATION RATE(Performed 12/28/2016) * COMPREHENSIVE METABOLIC PANEL(Performed 12/28/2016) * CBC W AUTO DIFFERENTIAL(Performed 10/27/2016) * ERYTHROCYTE SEDIMENTATION RATE(Performed 10/27/2016) * C-REACTIVE PROTEIN(Performed 10/27/2016) * URINALYSIS W/MICROSCOPIC REFLEX TO CULTURE(Performed 10/27/2016) * COMPREHENSIVE METABOLIC PANEL(Performed 10/27/2016) * C-REACTIVE PROTEIN(Performed 08/04/2016) * COMPREHENSIVE METABOLIC PANEL(Performed 08/04/2016) * CBC W AUTO DIFFERENTIAL(Performed 08/04/2016) * URINALYSIS W/MICROSCOPIC REFLEX TO CULTURE(Performed 08/04/2016) * ERYTHROCYTE SEDIMENTATION RATE(Performed 08/04/2016) * C-REACTIVE PROTEIN(Performed 06/02/2016) * CBC W AUTO DIFFERENTIAL(Performed 06/02/2016) * URINALYSIS W/MICROSCOPIC REFLEX TO CULTURE(Performed 06/02/2016) * ERYTHROCYTE SEDIMENTATION RATE(Performed 06/02/2016) * COMPREHENSIVE METABOLIC PANEL(Performed 06/02/2016) * CBC W AUTO DIFFERENTIAL(Performed 06/02/2016) * URINALYSIS W/MICROSCOPIC REFLEX TO CULTURE(Performed 06/02/2016) * ERYTHROCYTE SEDIMENTATION RATE(Performed 06/02/2016) * COMPREHENSIVE METABOLIC PANEL(Performed 06/02/2016) * CBC W AUTO DIFFERENTIAL(Performed 06/02/2016) * URINALYSIS W/MICROSCOPIC REFLEX TO CULTURE(Performed 06/02/2016) * ERYTHROCYTE SEDIMENTATION RATE(Performed 06/02/2016) * COMPREHENSIVE METABOLIC PANEL(Performed 06/02/2016) * URINALYSIS W/MICROSCOPIC REFLEX TO CULTURE(Performed 06/02/2016) * COMPREHENSIVE METABOLIC PANEL(Performed 06/02/2016) * CBC W AUTO DIFFERENTIAL(Performed 06/02/2016) * CBC W AUTO DIFFERENTIAL(Performed 06/02/2016) * URINALYSIS W/MICROSCOPIC REFLEX TO CULTURE(Performed 06/02/2016) * CBC W AUTO DIFFERENTIAL(Performed 06/02/2016) * C-REACTIVE PROTEIN(Performed 03/30/2016) * CBC W AUTO DIFFERENTIAL(Performed 03/30/2016) * URINALYSIS W/MICROSCOPIC REFLEX TO CULTURE(Performed 03/30/2016) * ERYTHROCYTE SEDIMENTATION RATE(Performed 03/30/2016) * COMPREHENSIVE METABOLIC PANEL(Performed 03/30/2016) * CBC W AUTO DIFFERENTIAL(Performed 03/30/2016) * URINALYSIS W/MICROSCOPIC REFLEX TO CULTURE(Performed 03/30/2016) * ERYTHROCYTE SEDIMENTATION RATE(Performed 03/30/2016) * COMPREHENSIVE METABOLIC PANEL(Performed 03/30/2016) * CBC W AUTO DIFFERENTIAL(Performed 03/30/2016) * URINALYSIS W/MICROSCOPIC REFLEX TO CULTURE(Performed 03/30/2016) * ERYTHROCYTE SEDIMENTATION RATE(Performed 03/30/2016) * COMPREHENSIVE METABOLIC PANEL(Performed 03/30/2016) * CBC W AUTO DIFFERENTIAL(Performed 03/30/2016) * URINALYSIS W/MICROSCOPIC REFLEX TO CULTURE(Performed 03/30/2016) * COMPREHENSIVE METABOLIC PANEL(Performed 03/30/2016) * CBC W AUTO DIFFERENTIAL(Performed 03/30/2016) * COMPREHENSIVE METABOLIC PANEL(Performed 03/30/2016) * CBC W AUTO DIFFERENTIAL(Performed 03/30/2016) * C-REACTIVE PROTEIN(Performed 01/29/2016) * CBC W AUTO DIFFERENTIAL(Performed 01/29/2016) * URINALYSIS W/MICROSCOPIC REFLEX TO CULTURE(Performed 01/29/2016) * ERYTHROCYTE SEDIMENTATION RATE(Performed 01/29/2016) * COMPREHENSIVE METABOLIC PANEL(Performed 01/29/2016) * URINALYSIS W/MICROSCOPIC REFLEX TO CULTURE(Performed 01/29/2016) * ERYTHROCYTE SEDIMENTATION RATE(Performed 01/29/2016) * COMPREHENSIVE METABOLIC PANEL(Performed 01/29/2016) * URINALYSIS W/MICROSCOPIC REFLEX TO CULTURE(Performed 01/29/2016) * CBC W AUTO DIFFERENTIAL(Performed 01/29/2016) * QUANTIFERON TB-GOLD(Performed 11/27/2015) * URINALYSIS W/MICROSCOPIC REFLEX TO CULTURE(Performed 11/27/2015) * ERYTHROCYTE SEDIMENTATION RATE(Performed 11/27/2015) * C-REACTIVE PROTEIN(Performed 11/27/2015) * COMPREHENSIVE METABOLIC PANEL(Performed 11/27/2015) * CBC W AUTO DIFFERENTIAL(Performed 11/27/2015) * TSH(Performed 11/27/2015) * LIPID PROFILE(Performed 11/27/2015) * ERYTHROCYTE SEDIMENTATION RATE(Performed 10/14/2015) * COMPREHENSIVE METABOLIC PANEL(Performed 10/14/2015) * URINALYSIS W/MICROSCOPIC REFLEX TO CULTURE(Performed 10/14/2015) * CBC W AUTO DIFFERENTIAL(Performed 10/14/2015) * C-REACTIVE PROTEIN(Performed 10/14/2015) * URINALYSIS W/MICROSCOPIC REFLEX TO CULTURE(Performed 07/01/2015) * ERYTHROCYTE SEDIMENTATION RATE(Performed 07/01/2015) * COMPREHENSIVE METABOLIC PANEL(Performed 07/01/2015) * C-REACTIVE PROTEIN(Performed 07/01/2015) * CBC W AUTO DIFFERENTIAL(Performed 07/01/2015) * URINALYSIS W/MICROSCOPIC REFLEX TO CULTURE(Performed 04/30/2015) * ERYTHROCYTE SEDIMENTATION RATE(Performed 04/30/2015) * COMPREHENSIVE METABOLIC PANEL(Performed 04/30/2015) * C-REACTIVE PROTEIN(Performed 04/30/2015) * CBC W AUTO DIFFERENTIAL(Performed 04/30/2015) * URINALYSIS W/MICROSCOPIC REFLEX TO CULTURE(Performed 02/20/2015) * C-REACTIVE PROTEIN(Performed 02/20/2015) * CBC W AUTO DIFFERENTIAL(Performed 02/20/2015) * ERYTHROCYTE SEDIMENTATION RATE(Performed 02/20/2015) * URINALYSIS W/MICROSCOPIC REFLEX TO CULTURE(Performed 02/20/2015) * COMPREHENSIVE METABOLIC PANEL(Performed 02/20/2015) * C-REACTIVE PROTEIN(Performed 02/20/2015) * URINALYSIS W/MICROSCOPIC REFLEX TO CULTURE(Performed 02/20/2015) * COMPREHENSIVE METABOLIC PANEL(Performed 02/20/2015) * URINALYSIS W/MICROSCOPIC REFLEX TO CULTURE(Performed 02/20/2015) * ERYTHROCYTE SEDIMENTATION RATE(Performed 02/20/2015) * CBC W AUTO DIFFERENTIAL(Performed 02/20/2015) * CULTURE URINE(Performed 02/20/2015) * URINALYSIS W/MICROSCOPIC REFLEX TO CULTURE(Performed 12/11/2014) * ERYTHROCYTE SEDIMENTATION RATE(Performed 12/11/2014) * COMPREHENSIVE METABOLIC PANEL(Performed 12/11/2014) * C-REACTIVE PROTEIN(Performed 12/11/2014) * CBC W AUTO DIFFERENTIAL(Performed 12/11/2014) * CULTURE URINE REFLEXED(Performed 12/11/2014) * XR CHEST 2VW(Performed 09/30/2014) * C-REACTIVE PROTEIN(Performed 09/12/2014) * URINALYSIS W/MICROSCOPIC REFLEX TO CULTURE(Performed 09/12/2014) * COMPREHENSIVE METABOLIC PANEL(Performed 09/12/2014) * CBC W AUTO DIFFERENTIAL(Performed 09/12/2014) * ERYTHROCYTE SEDIMENTATION RATE(Performed 09/12/2014) * CULTURE URINE REFLEXED(Performed 09/12/2014) * ERYTHROCYTE SEDIMENTATION RATE(Performed 07/03/2014) * CBC W AUTO DIFFERENTIAL(Performed 07/03/2014) * COMPREHENSIVE METABOLIC PANEL(Performed 07/03/2014) * URINALYSIS W/MICROSCOPIC REFLEX TO CULTURE(Performed 07/03/2014) * C-REACTIVE PROTEIN(Performed 07/03/2014) * CULTURE URINE REFLEXED(Performed 07/03/2014) * C-REACTIVE PROTEIN(Performed 05/09/2014) * CBC W AUTO DIFFERENTIAL(Performed 05/09/2014) * URINALYSIS W/MICROSCOPIC REFLEX TO CULTURE(Performed 05/09/2014) * ERYTHROCYTE SEDIMENTATION RATE(Performed 05/09/2014) * COMPREHENSIVE METABOLIC PANEL(Performed 05/09/2014) * COMPREHENSIVE METABOLIC PANEL(Performed 05/09/2014) * ERYTHROCYTE SEDIMENTATION RATE(Performed 05/09/2014) * URINALYSIS W/MICROSCOPIC REFLEX TO CULTURE(Performed 05/09/2014) * CBC W AUTO DIFFERENTIAL(Performed 05/09/2014) * CULTURE URINE REFLEXED(Performed 05/09/2014) * URINALYSIS W/MICROSCOPIC REFLEX TO CULTURE(Performed 03/07/2014) * ERYTHROCYTE SEDIMENTATION RATE(Performed 03/07/2014) * C-REACTIVE PROTEIN(Performed 03/07/2014) * COMPREHENSIVE METABOLIC PANEL(Performed 03/07/2014) * CBC W AUTO DIFFERENTIAL(Performed 03/07/2014) * CULTURE URINE REFLEXED(Performed 03/07/2014) * C-REACTIVE PROTEIN(Performed 01/30/2014) * CBC W AUTO DIFFERENTIAL(Performed 01/30/2014) * URINALYSIS W/MICROSCOPIC REFLEX TO CULTURE(Performed 01/30/2014) * ERYTHROCYTE SEDIMENTATION RATE(Performed 01/30/2014) * COMPREHENSIVE METABOLIC PANEL(Performed 01/30/2014) * C-REACTIVE PROTEIN(Performed 01/30/2014) * URINALYSIS W/MICROSCOPIC REFLEX TO CULTURE(Performed 01/30/2014) * COMPREHENSIVE METABOLIC PANEL(Performed 01/30/2014) * ERYTHROCYTE SEDIMENTATION RATE(Performed 01/30/2014) * CBC W AUTO DIFFERENTIAL(Performed 01/30/2014) * CULTURE URINE REFLEXED(Performed 01/30/2014) * CULTURE URINE(Performed 01/30/2014) * C-REACTIVE PROTEIN(Performed 11/01/2013) * URINALYSIS W/MICROSCOPIC REFLEX TO CULTURE(Performed 11/01/2013) * COMPREHENSIVE METABOLIC PANEL(Performed 11/01/2013) * ERYTHROCYTE SEDIMENTATION RATE(Performed 11/01/2013) * CBC W AUTO DIFFERENTIAL(Performed 11/01/2013) * CULTURE URINE REFLEXED(Performed 11/01/2013) * C-REACTIVE PROTEIN(Performed 08/21/2013) * URINALYSIS W/MICROSCOPIC REFLEX TO CULTURE(Performed 08/21/2013) * ERYTHROCYTE SEDIMENTATION RATE(Performed 08/21/2013) * COMPREHENSIVE METABOLIC PANEL(Performed 08/21/2013) * CBC W AUTO DIFFERENTIAL(Performed 08/21/2013) * CULTURE URINE REFLEXED(Performed 08/21/2013) * C-REACTIVE PROTEIN(Performed 06/13/2013) * COMPREHENSIVE METABOLIC PANEL(Performed 06/13/2013) * ERYTHROCYTE SEDIMENTATION RATE(Performed 06/13/2013) * URINALYSIS W/MICROSCOPIC REFLEX TO CULTURE(Performed 06/13/2013) * CBC W AUTO DIFFERENTIAL(Performed 06/13/2013) * CULTURE URINE REFLEXED(Performed 06/13/2013) * C-REACTIVE PROTEIN(Performed 04/17/2013) * URINALYSIS W/MICROSCOPIC REFLEX TO CULTURE(Performed 04/17/2013) * ERYTHROCYTE SEDIMENTATION RATE(Performed 04/17/2013) * COMPREHENSIVE METABOLIC PANEL(Performed 04/17/2013) * CBC W AUTO DIFFERENTIAL(Performed 04/17/2013) * CULTURE URINE REFLEXED(Performed 04/17/2013) * C-REACTIVE PROTEIN(Performed 02/08/2013) * URINALYSIS W/MICROSCOPIC REFLEX TO CULTURE(Performed 02/08/2013) * COMPREHENSIVE METABOLIC PANEL(Performed 02/08/2013) * ERYTHROCYTE SEDIMENTATION RATE(Performed 02/08/2013) * CBC W AUTO DIFFERENTIAL(Performed 02/08/2013) * CULTURE URINE(Performed 02/08/2013) * CULTURE URINE REFLEXED(Performed 02/08/2013) * C-REACTIVE PROTEIN(Performed 12/08/2012) * ERYTHROCYTE SEDIMENTATION RATE(Performed 12/08/2012) * URINALYSIS W/MICROSCOPIC REFLEX TO CULTURE(Performed 12/08/2012) * CBC W AUTO DIFFERENTIAL(Performed 12/08/2012) * COMPREHENSIVE METABOLIC PANEL(Performed 12/08/2012) * CULTURE URINE(Performed 12/08/2012) * CULTURE URINE REFLEXED(Performed 12/08/2012) * COMPREHENSIVE METABOLIC PANEL(Performed 10/20/2012) * URINALYSIS W/MICROSCOPIC REFLEX TO CULTURE(Performed 10/20/2012) * C-REACTIVE PROTEIN(Performed 10/20/2012) * ERYTHROCYTE SEDIMENTATION RATE(Performed 10/20/2012) * CBC W AUTO DIFFERENTIAL(Performed 10/20/2012) * CULTURE URINE REFLEXED(Performed 10/20/2012) * URINALYSIS W/MICROSCOPIC REFLEX TO CULTURE(Performed 07/10/2012) * ERYTHROCYTE SEDIMENTATION RATE(Performed 07/10/2012) * C-REACTIVE PROTEIN(Performed 07/10/2012) * COMPREHENSIVE METABOLIC PANEL(Performed 07/10/2012) * CBC W AUTO DIFFERENTIAL(Performed 07/10/2012) * CULTURE URINE(Performed 07/10/2012) * CULTURE URINE REFLEXED(Performed 07/10/2012) * COMPREHENSIVE METABOLIC PANEL(Performed 06/23/2012) * ERYTHROCYTE SEDIMENTATION RATE(Performed 06/23/2012) * SS-A/SS-B (SJOGREN'S) ANTIBODY PANEL(Performed 06/23/2012) * CBC W AUTO DIFFERENTIAL(Performed 06/23/2012) * HEPATITIS C ANTIBODY(Performed 06/23/2012) * C-REACTIVE PROTEIN(Performed 06/23/2012) * VITAMIN D 25-HYDROXY D2+D3(Performed 06/23/2012) * URINALYSIS W/MICROSCOPIC REFLEX TO CULTURE(Performed 06/23/2012) * RHEUMATOID ARTHRITIS PANEL(Performed 06/23/2012) * GUZMAN BLOOD SCREEN W/REFLEX TITER(Performed 06/23/2012) * CULTURE URINE REFLEXED(Performed 06/23/2012) * CULTURE URINE(Performed 06/23/2012) * XR HAND LEFT 2VW(Performed 06/19/2012) * XR HAND RIGHT 2VW(Performed 06/19/2012) * XR PELVIS W LEFT HIP 2VW(Performed 06/19/2012) * XR PELVIS W RIGHT HIP 2VW(Performed 06/19/2012) * XR LUMBAR SPINE 4VW OR MORE(Performed 06/19/2012) Results * [facility] (03/13/2024 8:03 AM MANAGER BANKING) Narrative Elva Candelaria APRN-CRNA - 03/13/2024 8:03 AM MANAGER BANKING Elva Candelaria APRN-CRNA 03/13/2024 8:03 AM LMA Placement Procedure/LDA Note: Patient Location: OR. Procedure: LMA Pretreatment: 100% O2 Induction: standard IV Patient position: sniffing. Mask Ventilation: not attempted Type: LMA Size: 4 Number of Attempts: 1. Placement verified by: bilateral breath sounds and CO2 monitor Dentition unchanged? Yes Staff Section Anesthesia Provider: Elva Candelaria APRN-CRNA, Performed the procedure Mamadou Chen MD GENERAL ANESTHESIA O RDERABLES * CULTURE URINE REFLEXED II (03/09/2024 7:49 AM MANAGER BANKING) Only the most recent of8 resultswithin the time period is included. Reflexive Urine Culture See Below [facility] Comment: CULTURE INDICATED - RESULTS TO FOLLOW Test Performed at: [facility] [address] JORGE STALLINGS MD 03/09/2024 7:49 AM MANAGER BANKING 03/09/2024 7:50 AM MANAGER BANKING Avis Powell MD LAB - MICROBIO LOGY ORDERABLES Performing Organization Address [facility] Co de Phone Number [address] [address] * (ABNORMAL) URINALYSIS W/MICROSCOPIC REFLEX TO CULTURE (03/09/2024 7:49 AM MANAGER BANKING) Only the most recent of73 resultswithin the time period is included. Color UA YELLOW YELLOW [facility] Appearance TURBID(A) CLEAR [facility] Specific [place] UA 1.011 1.001 - 1.035 [facility] pH UA 6.5 5.0 - 8.0 [facility] Glucose UA NEGATIVE NEGATIVE [facility] Bilirubin UA NEGATIVE NEGATIVE [facility] Ketone UA NEGATIVE NEGATIVE [facility] Blood UA TRACE(A) NEGATIVE [facility] Protein UA TRACE(A) NEGATIVE [facility] Nitrite NEGATIVE NEGATIVE [facility] Leukocyte Esterase 3+(A) NEGATIVE [facility] WBC UA > OR = 60(A) < OR = 5 /HPF [facility] RBC UA 0-2 < OR = 2 /HPF [facility] Epithelial Cell UA 0-5 < OR = 5 /HPF [facility] Transitional Epithelial Cells [facility] Renal Epithelial Cells [facility] Bacteria UA MODERATE(A) NONE SEEN /HPF [facility] Calcium Oxalate Crystals [facility] Triple Phosphate Crystals [facility] Uric Acid Crystals [facility] Amorphous UA [facility] Crystals UA [facility] Hyaline Casts NONE SEEN NONE SEEN /LPF [facility] Granular Casts [facility] Casts UA [facility] Yeast [facility] Comments [facility] Note See Below [facility] Comment: This urine was analyzed for the presence of WBC, RBC, bacteria, casts, and other formed elements. Only those elements seen were reported. Test Performed at: [facility] [address] JORGE STALLINGS MD Urine MID-STREAM URINE SPECIMEN / Unknown 03/09/2024 7:49 AM MANAGER BANKING 03/09/2024 7:50 AM MANAGER BANKING Avis Powell MD LAB - URINALYS IS ORDERABLES Performing Organization Address [facility] Co de Phone Number [address] [address] * C-REACTIVE PROTEIN (03/09/2024 7:49 AM MANAGER BANKING) Only the most recent of60 resultswithin the time period is included. C-Reactive Protein 4.3 <8.0 mg/L [facility] Comment: Test Performed at: [facility] [place] [address] [facility] [place] [address] JORGE STALLINGS MD Blood BLOOD SPECIMEN / Unknown 03/09/2024 7:49 AM MANAGER BANKING 03/09/2024 7:50 AM MANAGER BANKING Avis Powell MD LAB - CHEMISTR Y ORDERABLES Performing Organization Address [facility] de Phone Number [address] [address] * (ABNORMAL) CULTURE URINE (03/09/2024 7:49 AM MANAGER BANKING) Only the most recent of19 resultswithin the time period is included. Culture (A) [facility] Comment: CULTURE, URINE, ROUTINE Micro Number: [id number] Test Status: Final Specimen Source: Urine Specimen Quality: Adequate Result: Greater than 100,000 CFU/mL of Enterococcus species Enterococcus sp. INT [place] AMPICILLIN S <=2 NITROFURANTOIN S <=16 VANCOMYCIN S 2 S = Susceptible I = Intermediate R = Resistant NS = Not susceptible SDD = Susceptible Dose Dependent * = Not Tested NR = Not Reported NN = See Therapy Comments Test Performed at: [facility] [id number] JORGE STALLINGS MD 03/09/2024 7:49 AM MANAGER BANKING 03/09/2024 7:50 AM MANAGER BANKING Avis Powell MD LAB - MICROBIO LOGY ORDERABLES Performing Organization Address [facility] de Phone Number [address] [address] * ERYTHROCYTE SEDIMENTATION RATE (03/09/2024 7:49 AM MANAGER BANKING) Only the most recent of68 resultswithin the time period is included. Erythrocyte Sedimentation Rate Westergren 2 < OR = 30 mm/h [facility] Comment: Test Performed at: [facility] [address] JORGE STALLINGS MD Blood BLOOD SPECIMEN / Unknown 03/09/2024 7:49 AM MANAGER BANKING 03/09/2024 7:50 AM MANAGER BANKING Avis Powell MD LAB - HEMATMAXIME GY ORDERABLES [address] [address] * (ABNORMAL) CBC WITH DIFFERENTIAL (03/09/2024 7:49 AM MANAGER BANKING) Only the most recent of76 resultswithin the time period is included. White Blood Cell Count 7.9 3.8 - 10.8 Thousand/ uL [facility] RBC 4.21 3.80 - 5.10 Million/u L [facility] Hemoglobin 13.9 11.7 - 15.5 g/dL [facility] Hematocrit 43.1 35.0 - 45.0 % [facility] MCV 102.4(H) 80.0 - 100.0 fL [facility] MCH 33.0 27.0 - 33.0 pg [facility] MCHC 32.3 32.0 - 36.0 g/dL [facility] Comment: For adults, a slight decrease in the calculated MCHC value (in the range of 30 to 32 g/dL) is most likely not clinically significant; however, it should be interpreted with caution in correlation with other red cell parameters and the patient's clinical condition. RDW 12.8 11.0 - 15.0 % [facility] Platelet Count 225 140 - 400 Thousand/ uL [facility] MPV 10.2 7.5 - 12.5 fL [facility] Neutrophil Absolute 4116 1500 - 7800 cells/uL [facility] Lymphocytes Absolute 2757 850 - 3900 cells/uL [facility] Absolute Monocytes 885 200 - 950 cells/uL [facility] Eosinophils Absolute 111 15 - 500 cells/uL [facility] Basophils Absolute 32 0 - 200 cells/uL [facility] Granulocytes % 52.1 % [facility] Lymphocytes % 34.9 % [facility] Monocytes % 11.2 % [facility] Eosinophils % 1.4 % [facility] Basophils % 0.4 % [facility] Comment: Test Performed at: [facility] [address] JORGE STALLINGS MD Blood BLOOD SPECIMEN / Unknown 03/09/2024 7:49 AM MANAGER BANKING 03/09/2024 7:50 AM MANAGER BANKING Avis Powell MD LAB - HEMATOLO GY ORDERABLES Performing Organization Address [facility] Co de Phone Number [address] [address] * (ABNORMAL) COMPREHENSIVE METABOLIC PANEL (03/09/2024 7:49 AM MANAGER BANKING) Only the most recent of74 resultswithin the time period is included. Glucose 76 65 - 99 mg/dL [facility] Comment: Fasting reference interval BUN 20 7 - 25 mg/dL [facility] Creatinine 1.00 0.60 - 1.00 mg/dL [facility] eGFR by Cystatin C 58(L) > OR = 60 mL/min/1. 73m2 [facility] BUN/Creatinine Ratio SEE NOTE: 6 - 22 (calc) [facility] Comment: Not Reported: BUN and Creatinine are within reference range. Sodium 141 135 - 146 mmol/L [facility] Potassium 5.1 3.5 - 5.3 mmol/L [facility] Chloride 103 98 - 110 mmol/L [facility] CO2 33(H) 20 - 32 mmol/L [facility] Calcium 9.3 8.6 - 10.4 mg/dL [facility] Protein Total 6.5 6.1 - 8.1 g/dL [facility] Albumin 4.3 3.6 - 5.1 g/dL [facility] Globulin Total 2.2 1.9 - 3.7 g/dL (calc) [facility] Albumin/Globulin Ratio 2.0 1.0 - 2.5 (calc) [facility] Bilirubin Total 0.5 0.2 - 1.2 mg/dL [facility] Alkaline Phosphatase 37 37 - 153 U/L [facility] AST 18 10 - 35 U/L [facility] ALT 6 6 - 29 U/L [facility] Comment: Test Performed at: [facility] [address] JORGE STALLINGS MD Blood BLOOD SPECIMEN / Unknown 03/09/2024 7:49 AM MANAGER BANKING 03/09/2024 7:50 AM MANAGER BANKING Avis Powell MD LAB - CHEMISTR Y ORDERABLES Performing Organization Address [facility] Co de Phone Number [address] [address] * MRI Orbits or Face Wwo Contrast (02/28/2024 6:03 PM CDT) Anatomical Region Laterality Modality Head Magnetic Resonan ce 03/01/2024 1:52 PM CDT Impressions 03/14/2024 11:05 AM MANAGER BANKING IMPRESSION: 1.No evidence of acute intracranial findings or abnormal enhancement. 2.Generalized volume loss and nonspecific white matter changes, likely vascular related. 3.No acute MRI findings in the orbits. > Interpreting Provider: Eric Cedeno MD on 03/14/2024 11:05 AM Narrative 03/14/2024 11:05 AM MANAGER BANKING PROCEDURE: MRI BRAIN WWO CONTRAST, MRI ORBITS OR FACE WWO CONTRAST, DATE/TIME OF EXAM: 02/28/2024 6:03 PM, LOCATION [facility] INDICATION: H53.2: Diplopia ADDITIONAL CLINICAL INFORMATION: Ordering Provider Reason For Exam: double vision, abduction deficit OS>OD Technologist Note: None. Additional: 78 year old female who presents for Bimedial rectus recession and adjustable suture, BILATERAL. Patient has persistent Bilateral esotropia with elevation limitations. Double vision starting ~5 years ago, improved temporarily after getting prism in glasses but now worsening again. Seeing double vision most of the time, notices more at distance, but also blurry vision at distance. Sees images horizontally displaced. Double vision is binocular (resolves with closing one eye). Had prism put in 5 years ago, saw architectural technician more recently with new prescription but not sure if they changed prism. Current glasses ~8 months old, helped a bit with double at the beginning but quickly started seeing it again. Started wearing glasses in 5th grade but never required patching. Did not notice misalignment prior to architectural technician. CONTRAST: GADOBUTROL 1 MMOL/ML IV SSM SO:7 mL EXAMINATION: 1.Magnetic resonance imaging (MRI) of the brain without and with contrast 2.MRI of the orbits without and with contrast TECHNIQUE: 1.MRI of the brain was performed prior to and following the uneventful administration of 7 mL intravenous GADAVIST contrast according to standard protocol. 2.MRI of the orbits was performed prior to and following the uneventful administration of 7 mL intravenous GADAVIST contrast according to standard protocol. COMPARISON: No prior study is available for comparison at the time of this dictation. FINDINGS: Brain: No evidence of acute or chronic hemorrhage is identified. No evidence of acute cerebral infarction is seen. There is mild to moderate cerebral volume loss with associated ex vacuo ventricular dilatation. No mass effect or midline shift is seen. Periventricular and subcortical white matter FLAIR hyperintensities likely represent sequelae of chronic small vessel ischemic disease. No enhancing lesions are identified. Thinning of the corpus callosum. The corpus callosum and sella appear otherwise grossly unremarkable. The posterior fossa, brainstem, and craniocervical junction appear normal. Trace fluid signal in the right mastoid air cells. The visualized portions of the mastoids appear otherwise grossly clear. Normal flow voids are demonstrated in the carotid arteries and basilar artery. The calvarium and visualized cervical spine appear normal. Orbits: The globes and extraocular muscles appear normal. The lacrimal glands appear normal. The right optic nerve measures approximately 2.8 mm diameter and the left optic nerve measures approximately 2.7 mm in diameter, (series 3, image 12), perhaps lower limits of normal. The optic nerves are symmetric in signal. No abnormal enhancement is identified in either optic nerve. The optic chiasm and suprasellar cistern appear normal. Meckel's cave and the cavernous sinuses appear normal. There is mild paranasal sinus disease. The nasal septum is noted to the left. Procedure Note Eric Cedeno MD - 03/14/2024 PROCEDURE: MRI BRAIN WWO CONTRAST, MRI ORBITS OR FACE WWO CONTRAST, DATE/TIME OF EXAM: 02/28/2024 6:03 PM, LOCATION [facility] INDICATION: H53.2: Diplopia ADDITIONAL CLINICAL INFORMATION: Ordering Provider Reason For Exam: double vision, abduction deficitOS>OD Technologist Note: None. Additional: 78 year old female who presents for Bimedial rectusrecession and adjustable suture, BILATERAL. Patient has persistent Bilateral esotropia with elevation limitations. Double vision starting ~5 years ago, improved temporarily after getting prism in glasses but nowworsening again. Seeing double vision most of the time, notices more at distance,but also blurry vision at distance. Sees images horizontally displaced.Double vision is binocular (resolves with closing one eye). Had prism put in 5 years ago, saw architectural technician more recently with new prescription but notsure if they changed prism. Current glasses ~8 months old, helped a bit with double at the beginning but quickly started seeing it again. Started wearing glasses in 5th grade but never required patching. Did not notice misalignment prior to architectural technician. CONTRAST: GADOBUTROL 1 MMOL/ML IV SSM SO:7 mL EXAMINATION: 1.Magnetic resonance imaging (MRI) of the brain without and withcontrast 2.MRI of the orbits without and with contrast TECHNIQUE: 1.MRI of the brain was performed prior to and following the uneventful administration of 7 mL intravenous GADAVIST contrast according tostandard protocol. 2.MRI of the orbits was performed prior to and following the uneventful administration of 7 mL intravenous GADAVIST contrast according tostandard protocol. COMPARISON: No prior study is available for comparison at the time ofthis dictation. FINDINGS: Brain: No evidence of acute or chronic hemorrhage is identified. No evidence of acute cerebral infarction is seen. There is mild to moderate cerebral volume loss with associated ex vacuo ventricular dilatation. No masseffect or midline shift is seen. Periventricular and subcortical white matter FLAIR hyperintensities likely represent sequelae of chronic small vessel ischemic disease. No enhancing lesions are identified. Thinning of the corpus callosum. The corpus callosum and sella appear otherwise grossly unremarkable. The posterior fossa, brainstem, and craniocervicaljunction appear normal. Trace fluid signal in the right mastoid air cells. The visualizedportions of the mastoids appear otherwise grossly clear. Normal flow voids are demonstrated in the carotid arteries and basilar artery. The calvariumand visualized cervical spine appear normal. Orbits: The globes and extraocular muscles appear normal. The lacrimal glands appear normal. The right optic nerve measures approximately 2.8 mmdiameter and the left optic nerve measures approximately 2.7 mm in diameter,(series 3, image 12), perhaps lower limits of normal. The optic nerves are symmetric in signal. No abnormal enhancement is identified in eitheroptic nerve. The optic chiasm and suprasellar cistern appear normal. Meckel's cave and the cavernous sinuses appear normal. There is mild paranasalsinus disease. The nasal septum is noted to the left. IMPRESSION: 1.No evidence of acute intracranial findings or abnormal enhancement. 2.Generalized volume loss and nonspecific white matter changes, likely vascular related. 3.No acute MRI findings in the orbits. > Interpreting Provider: Eric Cedeno MD on 03/14/2024 11:05AM Ly Plunkett MD MR ORDERABLES * MRI Brain Wwo Contrast (02/28/2024 6:01 PM CDT) Anatomical Region Laterality Modality Head Magnetic Resonan ce 03/01/2024 1:52 PM CDT Impressions 03/14/2024 11:05 AM MANAGER BANKING IMPRESSION: 1.No evidence of acute intracranial findings or abnormal enhancement. 2.Generalized volume loss and nonspecific white matter changes, likely vascular related. 3.No acute MRI findings in the orbits. > Interpreting Provider: Eric Cedeno MD on 03/14/2024 11:05 AM Narrative 03/14/2024 11:05 AM MANAGER BANKING PROCEDURE: MRI BRAIN WWO CONTRAST, MRI ORBITS OR FACE WWO CONTRAST, DATE/TIME OF EXAM: 02/28/2024 6:03 PM, LOCATION [facility] INDICATION: H53.2: Diplopia ADDITIONAL CLINICAL INFORMATION: Ordering Provider Reason For Exam: double vision, abduction deficit OS>OD Technologist Note: None. Additional: 78 year old female who presents for Bimedial rectus recession and adjustable suture, BILATERAL. Patient has persistent Bilateral esotropia with elevation limitations. Double vision starting ~5 years ago, improved temporarily after getting prism in glasses but now worsening again. Seeing double vision most of the time, notices more at distance, but also blurry vision at distance. Sees images horizontally displaced. Double vision is binocular (resolves with closing one eye). Had prism put in 5 years ago, saw architectural technician more recently with new prescription but not sure if they changed prism. Current glasses ~8 months old, helped a bit with double at the beginning but quickly started seeing it again. Started wearing glasses in 5th grade but never required patching. Did not notice misalignment prior to architectural technician. CONTRAST: GADOBUTROL 1 MMOL/ML IV SSM SO:7 mL EXAMINATION: 1.Magnetic resonance imaging (MRI) of the brain without and with contrast 2.MRI of the orbits without and with contrast TECHNIQUE: 1.MRI of the brain was performed prior to and following the uneventful administration of 7 mL intravenous GADAVIST contrast according to standard protocol. 2.MRI of the orbits was performed prior to and following the uneventful administration of 7 mL intravenous GADAVIST contrast according to standard protocol. COMPARISON: No prior study is available for comparison at the time of this dictation. FINDINGS: Brain: No evidence of acute or chronic hemorrhage is identified. No evidence of acute cerebral infarction is seen. There is mild to moderate cerebral volume loss with associated ex vacuo ventricular dilatation. No mass effect or midline shift is seen. Periventricular and subcortical white matter FLAIR hyperintensities likely represent sequelae of chronic small vessel ischemic disease. No enhancing lesions are identified. Thinning of the corpus callosum. The corpus callosum and sella appear otherwise grossly unremarkable. The posterior fossa, brainstem, and craniocervical junction appear normal. Trace fluid signal in the right mastoid air cells. The visualized portions of the mastoids appear otherwise grossly clear. Normal flow voids are demonstrated in the carotid arteries and basilar artery. The calvarium and visualized cervical spine appear normal. Orbits: The globes and extraocular muscles appear normal. The lacrimal glands appear normal. The right optic nerve measures approximately 2.8 mm diameter and the left optic nerve measures approximately 2.7 mm in diameter, (series 3, image 12), perhaps lower limits of normal. The optic nerves are symmetric in signal. No abnormal enhancement is identified in either optic nerve. The optic chiasm and suprasellar cistern appear normal. Meckel's cave and the cavernous sinuses appear normal. There is mild paranasal sinus disease. The nasal septum is noted to the left. Procedure Note Eric Cedeno MD - 03/14/2024 PROCEDURE: MRI BRAIN WWO CONTRAST, MRI ORBITS OR FACE WWO CONTRAST, DATE/TIME OF EXAM: 02/28/2024 6:03 PM, LOCATION [facility] INDICATION: H53.2: Diplopia ADDITIONAL CLINICAL INFORMATION: Ordering Provider Reason For Exam: double vision, abduction deficitOS>OD Technologist Note: None. Additional: 78 year old female who presents for Bimedial rectusrecession and adjustable suture, BILATERAL. Patient has persistent Bilateral esotropia with elevation limitations. Double vision starting ~5 years ago, improved temporarily after getting prism in glasses but nowworsening again. Seeing double vision most of the time, notices more at distance,but also blurry vision at distance. Sees images horizontally displaced.Double vision is binocular (resolves with closing one eye). Had prism put in 5 years ago, saw architectural technician more recently with new prescription but notsure if they changed prism. Current glasses ~8 months old, helped a bit with double at the beginning but quickly started seeing it again. Started wearing glasses in 5th grade but never required patching. Did not notice misalignment prior to architectural technician. CONTRAST: GADOBUTROL 1 MMOL/ML IV SSM SO:7 mL EXAMINATION: 1.Magnetic resonance imaging (MRI) of the brain without and withcontrast 2.MRI of the orbits without and with contrast TECHNIQUE: 1.MRI of the brain was performed prior to and following the uneventful administration of 7 mL intravenous GADAVIST contrast according tostandard protocol. 2.MRI of the orbits was performed prior to and following the uneventful administration of 7 mL intravenous GADAVIST contrast according tostandard protocol. COMPARISON: No prior study is available for comparison at the time ofthis dictation. FINDINGS: Brain: No evidence of acute or chronic hemorrhage is identified. No evidence of acute cerebral infarction is seen. There is mild to moderate cerebral volume loss with associated ex vacuo ventricular dilatation. No masseffect or midline shift is seen. Periventricular and subcortical white matter FLAIR hyperintensities likely represent sequelae of chronic small vessel ischemic disease. No enhancing lesions are identified. Thinning of the corpus callosum. The corpus callosum and sella appear otherwise grossly unremarkable. The posterior fossa, brainstem, and craniocervicaljunction appear normal. Trace fluid signal in the right mastoid air cells. The visualizedportions of the mastoids appear otherwise grossly clear. Normal flow voids are demonstrated in the carotid arteries and basilar artery. The calvariumand visualized cervical spine appear normal. Orbits: The globes and extraocular muscles appear normal. The lacrimal glands appear normal. The right optic nerve measures approximately 2.8 mmdiameter and the left optic nerve measures approximately 2.7 mm in diameter,(series 3, image 12), perhaps lower limits of normal. The optic nerves are symmetric in signal. No abnormal enhancement is identified in eitheroptic nerve. The optic chiasm and suprasellar cistern appear normal. Meckel's cave and the cavernous sinuses appear normal. There is mild paranasalsinus disease. The nasal septum is noted to the left. IMPRESSION: 1.No evidence of acute intracranial findings or abnormal enhancement. 2.Generalized volume loss and nonspecific white matter changes, likely vascular related. 3.No acute MRI findings in the orbits. > Interpreting Provider: Eric Cedeno MD on 03/14/2024 11:05AM Ly Plunkett MD MR ORDERABLES * (ABNORMAL) CREATININE - POCT INTERFACED (02/28/2024 4:56 PM CDT) Creatinine POCT 0.73 0.30 - 1.30 mg/dL 02/28/2024 4:58 PM CDT [facility] eGFR 85(L) >=90 mL/min/1.7 3 m2 02/28/2024 4:58 PM CDT [facility] Blood BLOOD SPECIMEN / Unknown 02/28/2024 4:56 PM CDT 02/28/2024 4:58 PM CDT Ly Plunkett MD LAB - POINT OF CARE ORDERABLES Performing Organization Address City/State/[facility] Co de Phone Number [address] [address], [facility] [phone] * EYE EXAM (12/06/2023) Anatomical Region Laterality Modality Other Narrative 12/06/2023 Ordered by an unspecified provider. Scanned Document SCANNING ONLY * XR CERVICAL SPINE 2 OR 3VW (11/16/2023 4:27 PM CDT) Only the most recent of2 resultswithin the time period is included. Anatomical Region Laterality Modality Spine Radiographic Tangela ging 11/17/2023 9:47 AM CDT Impressions 11/17/2023 7:50 PM CDT IMPRESSION: Multilevel degenerative changes as outlined above, most prominent at C5-6, not significantly worsened compared to prior. Report dictated by Justin Tipton MD (senior resident care director). I, Khurram Dorsey MD have personally reviewed and interpreted this examination/study. 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 No acute fracture or compression deformity is identified. There is multilevel intervertebral disc space narrowing, most prominent at the C5-6 level with associated marginal osteophytic spurring. There is also multilevel facet and uncovertebral arthropathy cervical spine. The lateral masses are normally aligned. The predental interval and prevertebral soft tissues are normal. Bone density and texture are normal. 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 No acute fracture or compression deformity is identified. There is multilevel intervertebral disc space narrowing, most prominent at the C5-6 level with associated marginal osteophytic spurring. There is also multilevel facet and uncovertebral arthropathy cervical spine. The lateral masses arenormally aligned. The predental interval and prevertebral soft tissues arenormal. Bone density and texture are normal. IMPRESSION: Multilevel degenerative changes as outlined above, most prominent atC5-6, not significantly worsened compared to prior. Report dictated by Justin Tipton MD (senior resident care director). Khurram Jackson MD have personally reviewed and interpreted this examination/study. > Interpreting Provider: Khurram Dorsey MD on 11/17/2023 7:50 PM Avis Powell MD DIAGNOSTIC TANGELA GING ORDERABLES * XR CHEST 2VW (11/16/2023 4:27 PM CDT) Only the most recent of5 resultswithin the time period is included. Anatomical Region Laterality Modality Chest Radiographic Atngela ging 11/17/2023 9:46 AM CDT Impressions 11/17/2023 10:29 AM CDT IMPRESSION: No acute pulmonary process. Report dictated by Justin Tipton MD (senior resident care director). Blaine Jackson MD have personally reviewed and interpreted this examination/study. > Interpreting Provider: Blaine Eller MD on 11/17/2023 10:29 AM Narrative 11/17/2023 10:29 AM CDT PROCEDURE: XR CHEST 2VW, DATE/TIME OF EXAM: 11/16/2023 4:27 PM, LOCATION [facility] INDICATION: Z11.1: Screening-pulmonary TB M05.79: Rheumatoid arthritis involving multiple sites with positive rheumatoid factor (HCC) Z79.899: Encounter for long-term (current) use of high-risk medication Z79.899: Other oysterman (current) drug therapy M54.2: Chronic neck pain G89.29: Chronic neck pain COMPARISON: Chest radiograph 10/13/2022 TECHNIQUE: Frontal and lateral radiographs of the chest. FINDINGS: There is no focal consolidation, pleural effusion, or pneumothorax. The cardiomediastinal silhouette is normal. The visible bony thorax is intact. Procedure Note Blaine Eller MD - 11/17/2023 PROCEDURE: XR CHEST 2VW, DATE/TIME OF EXAM: 11/16/2023 4:27 PM, LOCATION [facility] INDICATION: Z11.1: Screening-pulmonary TB M05.79: Rheumatoid arthritis involving multiple sites with positive rheumatoid factor (HCC) Z79.899: Encounter for long-term (current) use of high-risk medication Z79.899: Other oysterman (current) drug therapy M54.2: Chronic neck pain G89.29: Chronic neck pain COMPARISON: Chest radiograph 10/13/2022 TECHNIQUE: Frontal and lateral radiographs of the chest. FINDINGS: There is no focal consolidation, pleural effusion, or pneumothorax. The cardiomediastinal silhouette is normal. The visible bony thorax is intact. IMPRESSION: No acute pulmonary process. Report dictated by Justin Tipton MD (senior resident care director). I, Blaine Eller MD have personally reviewed and interpreted this examination/study. > Interpreting Provider: Blaine Eller MD on 11/17/2023 10:29 AM Avis Powell MD DIAGNOSTIC TANGELA GING ORDERABLES * QUANTIFERON-TB GOLD PLUS 4-TUBE (10/13/2022 2:35 PM CDT) [facility] QuantiFERON NIL 0.11 IU/mL 6:56 AM CDT [employer] [facility]) Comment: Performed By: [employer] [address] [place] [id number] Payroll Consultant: Joe Marcelo MD, PhD QuantiFERON TB Gold Plus Negative Negative 10/16/2022 6:56 AM CDT [employer] [facility]) Comment: Interpretive Data: Quantiferon TB Gold Plus Interferon gamma release is measured for specimens from each of the four collection tubes. A qualitative result (Negative, Positive, or Indeterminate) is based on interpretation of the four values, NIL, MITOGEN minus NIL (MITOGEN-NIL), TB1 minus NIL (TB1-NIL), and TB2 minus NIL (TB2-NIL). The NIL value represents nonspecific reactivity produced by the patient specimen. The MITOGEN-NIL value serves as the positive control for the patient specimen, demonstrating successful lymphocyte activity. The TB1-NIL tube specifically detects CD4+ lymphocyte reactivity, specifically stimulated by the TB1 antigens. The TB2-NIL tube detects both CD4+ and CD8+ lymphocyte reactivity, stimulated by TB2 antigens. An overall Negative result does not completely rule out TB infection. A false-positive result in the absence of other clinical evidence of TB infection is not uncommon. Refer to: Updated Guidelines for Using Interferon Gamma Release Assays to Detect Mycobacterium tuberculosis Infection --- [place], 2010 (http://www.cdc.gov/mmwr/preview/mmwrhtml/vp9925f1.htm), for more information concerning test performance in low-prevalence populations and use in occupational screening. QuantiFERON Plus TB1 Minus NIL 0.00 0.00 - 0.34 IU/mL 10/16/2022 6:56 AM CDT [facility] ([facility]) QuantiFERON Plus TB2 Minus NIL 0.03 0.00 - 0.34 IU/mL 10/16/2022 6:56 AM CDT [facility] ([facility]) QuantiFERON Mitogen Minus NIL 9.64 IU/mL 10/16/2022 6:56 AM CDT [facility] ([facility]) Blood BLOOD SPECIMEN / Unknown Lab Venipuncture / Unknown 10/13/2022 2:35 PM CDT 10/13/2022 2:49 PM CDT Avis Powell MD LAB - CHEMISTR Y ORDERABLES [facility] [employer] [facility]) [address] * CULTURE URINE REFLEXED III (05/11/2022 1:11 PM MANAGER BANKING) Only the most recent of3 resultswithin the time period is included. Reflexive Urine Culture See Below [facility] Comment: NO CULTURE INDICATED Test Performed at: [address] [address] JORGE STALLINGS MD 05/11/2022 1:11 PM MANAGER BANKING 05/11/2022 1:15 PM MANAGER BANKING Avis Powell MD LAB - MICROBIO LOGY ORDERABLES [address] [address] * PROC INJECTION JOINT (SMALL/INTERMED/MAJOR) (08/13/2021 9:04 AM CDT) Narrative Arielle Mitchell PA - 08/13/2021 9:04 AM CDT Arielle Mitchell PA 08/13/2021 9:46 AM Patient seated with right hand in prone position on table. Base of the 1st metacarpal (thumb) identified and CMC joint manually distracted. Skin cleansed over this joint. Joint accessed with a 27 gauge needle and 0.5mL of kenalog and 0.5mL of 1% lidocaine injected into the joint successfully. Bandage applied. Patient tolerated procedure well. Arielle SAGE PROCEDURE/MINOR SURG ICAL ORDERABLES * PROC INJECTION TENDON, LIGAMENT, APONEUROSIS (08/13/2021 9:04 AM CDT) Narrative Arielle Mitchell PA - 08/13/2021 9:04 AM CDT Arielle Mitchell PA 08/13/2021 9:46 AM Patient seated with right hand resting supine on appropriately draped procedure table. Head of the first metacarpal was identified and skin overlying cleansed with chloroprep and isopropyl alcohol. Ethyl chloride spray applied to area prior to placing 30g needle perpendicular to the palm. Needle then contacted bone. Patient flexed finger on command and needle confirmed to be in the tendon sheath. Combination of 0.5mL of 1% lidocaine and 0.5mL of kenalog 40mg/mL infused into tendon sheath. Needle removed and bandage placed. Patient tolerated procedure well. Arielle SAGE PROCEDURE/MINOR SURG ICAL ORDERABLES * CULTURE URINE REFLEXED (06/30/2021 1:44 PM MANAGER BANKING) Only the most recent of20 resultswithin the time period is included. Reflexive Urine Culture See Below [facility] Comment: CULTURE INDICATED - RESULTS TO FOLLOW Test Performed at: [facility] [address] [address] GAUTAM YO DO,MPH 06/30/2021 1:44 PM MANAGER BANKING 06/30/2021 1:51 PM MANAGER BANKING Avis Powell MD LAB - MICROBIO LOGY ORDERABLES [employer] [address] [place] [address] * QUANTIFERON-TB GOLD PLUS 1-TUBE (06/30/2021 1:41 PM MANAGER BANKING) Only the most recent of3 resultswithin the time period is included. [facility] QuantiFERON TB Gold Plus NEGATIVE NEGATIVE [facility] Comment: Negative test result. M. tuberculosis complex infection unlikely. NIL 0.06 IU/mL [facility] MITOGEN MINUS NIL RESULT >10.00 IU/mL [facility] TB1-NIL 0.01 IU/mL [facility] TB2-NIL 0.00 IU/mL [facility] Comment: The Nil tube value reflects the background interferon gamma immune response of the patient's blood sample. This value has been subtracted from the patient's displayed TB and Mitogen results. Lower than expected results with the Mitogen tube prevent false-negative Quantiferon readings by detecting a patient with a potential immune suppressive condition and/or suboptimal pre-analytical specimen handling. The TB1 Antigen tube is coated with the M. tuberculosis-specific antigens designed to elicit responses from TB antigen primed CD4+ helper T-lymphocytes. The TB2 Antigen tube is coated with the M. tuberculosis-specific antigens designed to elicit responses from TB antigen primed CD4+ helper and CD8+ cytotoxic T-lymphocytes. For additional information, please refer to https://education.Ksplice/faq/LOO746 (This link is being provided for informational/ educational purposes only.) REPORT COMMENT: FASTING:NO Test Performed at: [facility] [address] [address] GAUTAM YO DO,MPH 06/30/2021 1:41 PM MANAGER BANKING 06/30/2021 1:42 PM MANAGER BANKING Avis Powell MD LAB - CHEMISTR Y ORDERABLES [facility] [address] [place] [address] * XR KNEE RIGHT 2VW OR LESS (06/02/2021 2:53 PM MANAGER BANKING) Anatomical Region Laterality Modality Lower Extremity Radiographic Tangela ging 06/02/2021 2:58 PM MANAGER BANKING Impressions 06/02/2021 3:32 PM MANAGER BANKING IMPRESSION: Mild osteoarthritis of the right knee. Dictated by Luanne Tipton MD (senior resident care director). I, Dr. KHURRAM DORSEY have personally reviewed and interpreted this examination/study. This report was electronically signed by KHURRAM DORSEY on 06/02/2021 3:32 PM . Narrative 06/02/2021 3:32 PM MANAGER BANKING EXAMINATION: XR KNEE RIGHT 2VW OR LESS HISTORY: M05.79: Rheumatoid arthritis involving multiple sites with positive rheumatoid factor Z79.899: Other oysterman (current) drug therapy Z79.899: Encounter for long-term (current) use of high-risk medication COMPARISON: No prior study is available for comparison. FINDINGS: The osseous structures are intact and well aligned without acute fracture or dislocation. There is moderate narrowing of the medial, patellofemoral, and lateral joint space compartments, with small tricompartmental osteophytes. There is a small effusion. No soft tissue swelling is present. Procedure Note Khurram Dorsey MD - 06/02/2021 EXAMINATION: XR KNEE RIGHT 2VW OR LESS HISTORY: M05.79: Rheumatoid arthritis involving multiple sites with positive rheumatoid factor Z79.899: Other oysterman (current) drug therapy Z79.899: Encounter for long-term (current) use of high-risk medication COMPARISON: No prior study is available for comparison. FINDINGS: The osseous structures are intact and well aligned without acutefracture or dislocation. There is moderate narrowing of the medial,patellofemoral, and lateral joint space compartments, with small tricompartmental osteophytes. There is a small effusion. No soft tissue swelling is present. IMPRESSION: Mild osteoarthritis of the right knee. Dictated by Luanne Tipton MD (senior resident care director). I, Dr. KHURRAM DORSEY have personally reviewed and interpreted this examination/study. This report was electronically signed by KHURRAM DORSEY on 06/02/2021 3:32 PM. Avis Powell MD DIAGNOSTIC TANGELA GING ORDERABLES * XR KNEE LEFT 2VW OR LESS (06/02/2021 2:53 PM MANAGER BANKING) Anatomical Region Laterality Modality Lower Extremity Radiographic Tangela ging 06/02/2021 2:57 PM MANAGER BANKING Impressions 06/02/2021 3:33 PM MANAGER BANKING IMPRESSION: No acute fracture or dislocation identified. No significant degenerative changes. Dictated by Luanne Tipton MD (senior resident care director). I, Dr. KHURRAM DORSEY have personally reviewed and interpreted this examination/study. This report was electronically signed by KHURRAM DORSEY on 06/02/2021 3:33 PM . Narrative 06/02/2021 3:33 PM MANAGER BANKING EXAMINATION: XR KNEE LEFT 2VW OR LESS HISTORY: M05.79: Rheumatoid arthritis involving multiple sites with positive rheumatoid factor Z79.899: Other senior living (current) drug therapy Z79.899: Encounter for long-term (current) use of high-risk medication COMPARISON: No prior study is available for comparison. FINDINGS: The osseous structures are intact and well aligned without acute fracture or dislocation. The knee joint space is preserved. There is a small effusion. No soft tissue swelling is present. Procedure Note Khurram Dorsey MD - 06/02/2021 EXAMINATION: XR KNEE LEFT 2VW OR LESS HISTORY: M05.79: Rheumatoid arthritis involving multiple sites with positive rheumatoid factor Z79.899: Other oysterman (current) drug therapy Z79.899: Encounter for long-term (current) use of high-risk medication COMPARISON: No prior study is available for comparison. FINDINGS: The osseous structures are intact and well aligned without acutefracture or dislocation. The knee joint space is preserved. There is a small effusion. No soft tissue swelling is present. IMPRESSION: No acute fracture or dislocation identified. No significant degenerative changes. Dictated by Luanne Tipton MD (senior resident care director). Dr. KHURRAM Jackson have personally reviewed and interpreted this examination/study. This report was electronically signed by KHURRAM DORSEY on 06/02/2021 3:33 PM. Avis Powell MD DIAGNOSTIC TANGELA GING ORDERABLES * CULTURE URINE REFLEXED I (10/14/2020 7:52 AM CDT) Only the most recent of11 resultswithin the time period is included. Reflexive Urine Culture See Below [facility] Comment: NO CULTURE INDICATED Test Performed at: [facility] [address] [place] [address] GAUTAM YO DO,MPH 10/14/2020 7:52 AM CDT 10/14/2020 7:53 AM CDT Avis Powell MD LAB - MICROBIO LOGY ORDERABLES [facility] [address] [place] [address] * PROC INJECTION JOINT (SMALL/INTERMED/MAJOR) (08/22/2020 10:54 AM CDT) Narrative Pedro Luis Felix MD - 08/22/2020 10:54 AM CDT Pedro Luis Felix MD 08/22/2020 10:54 AM RIGHT thumb CMCJ Corticosteroid Injection The patient was offered a corticosteroid injection into the right thumb CMCJ. After discussing the risks and benefits of the procedure, the patient elected to proceed. We discussed the patient may experience increased pain for the first days but should expect pain to improve thereafter. I explained the steroid component could affect their sugar levels. I explained there is a small risk of hypopigmentation at the site of injection which could be permanent. I explained that approximately 70% of patients experience symptom relief at 6 months, about 45% at 12 months. Ultimately, approximately 55% of patients may need another injection or a surgical intervention. The patient verbalized understanding and agreed to proceed. After sterile preparation, the right thumb was injected, into the CMCJ, with a combination in One Syringe: 0.5mL ropivacaine (5mg/mL) + 0.5ml Kenalog (40mg/mL). Following injection, a band-aid and soft wrap was applied. The patient tolerated the procedure well without complication. 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 Dictated by Marce Damon MD (senior resident care director). I, Dr. VAL HODGES M.D. have personally reviewed and interpreted this examination/study. This report was electronically signed by VAL HODGES M.D. on 07/25/2020 1:56 PM . Narrative 07/25/2020 1:56 PM CDT EXAMINATION: XR HAND RIGHT 3VW OR MORE HISTORY: M79.641: Pain of right hand COMPARISON: Hand radiograph dated 06/19/2012 FINDINGS: No acute fracture or dislocation. There is moderate osteoarthritis of the first carpometacarpal joint (base of the thumb). Mild to moderate polyarticular osteoarthritis is also seen in a few interphalangeal joints, including the second through fifth distal interphalangeal joints. There is mild malalignment at the second DIP joint. Findings are increased since 06/19/2012. No soft tissue swelling is present. Procedure Note Val Hodges MD - 07/25/2020 EXAMINATION: XR HAND RIGHT 3VW OR MORE HISTORY: M79.641: Pain of right hand COMPARISON: Hand radiograph dated 06/19/2012 FINDINGS: No acute fracture or dislocation. There is moderate osteoarthritis ofthe first carpometacarpal joint (base of the thumb). Mild to moderate polyarticular osteoarthritis is also seen in a few interphalangealjoints, including the second through fifth distal interphalangeal joints. Thereis mild malalignment at the second DIP joint. Findings are increased since 06/19/2012. No soft tissue swelling is present. 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 Dictated by Marce Damon MD (senior resident care director). I, Dr. VAL HODGES M.D. have personally reviewed and interpreted this examination/study. This report was electronically signed by VAL HODGES M.D. on 07/25/2020 1:56 PM . Arielle SAGE DIAGNOSTIC IMAGING O RDERABLES * EYE EXAM (01/17/2020 11:34 AM CDT) Anatomical Region Laterality Modality Other Narrative 01/17/2020 11:34 AM CDT Ordered by an unspecified provider. Scanned Document SCANNING ONLY * EYE EXAM (09/12/2019 11:44 AM CDT) Anatomical Region Laterality Modality Other Narrative 09/12/2019 11:44 AM CDT Ordered by an unspecified provider. Scanned Document SCANNING ONLY * URINALYSIS W/MICROSCOPIC NO CULTURE (04/18/2018 2:00 PM MANAGER BANKING) Color UA YELLOW YELLOW [facility] Appearance CLEAR CLEAR [facility] Specific [place] UA 1.011 1.001 - 1.035 [facility] pH UA 6.5 5.0 - 8.0 [facility] Glucose UA NEGATIVE NEGATIVE [facility] Bilirubin UA NEGATIVE NEGATIVE [facility] Ketone UA NEGATIVE NEGATIVE [facility] Blood UA NEGATIVE NEGATIVE [facility] Protein UA NEGATIVE NEGATIVE [facility] Nitrite UA NEGATIVE NEGATIVE [facility] Leukocyte UA NEGATIVE NEGATIVE [facility] WBC UA NONE SEEN < OR = 5 /HPF [facility] RBC UA NONE SEEN < OR = 2 /HPF [facility] Epithelial Cell UA NONE SEEN < OR = 5 /HPF [facility] Bacteria UA NONE SEEN NONE SEEN /HPF [facility] Hyaline Casts NONE SEEN NONE SEEN /LPF [facility] Comment: Test Performed at: [facility] [address] [place] [phone] GAUTAM YO DO,MPH 04/18/2018 2:00 PM MANAGER BANKING 04/18/2018 2:07 PM MANAGER BANKING Vibha Montemayor MD LAB - URINALYSIS ORD ERABLES [facility] [address] [place] [address] * QUANTIFERON TB-GOLD (11/27/2015 8:02 AM CDT) QuantiFERON TB Gold NEGATIVE NEGATIVE [facility] ([facility]) Comment: Negative test result. M. tuberculosis complex infection unlikely. QuantiFERON Nil Value 0.63 IU/mL [facility] ([facility]) QuantiFERON Mitogen Value >10.00 IU/mL [facility] ([facility] QuantiFERON TB Antigen minus Nil value <0.00 IU/mL [facility] ([facility]) Comment: The Nil tube value is used to determine if the patient has a preexisting immune response which could cause a false-positive reading on the test. In order for a test to be valid, the Nil tube must have a value of less than or equal to 8.0 IU/mL. The mitogen control tube is used to assure the patient has a healthy immune status and also serves as a control for correct blood handling and incubation. It is used to detect false-negative readings. The mitogen tube must have a gamma interferon value of greater than or equal to 0.5 IU/mL higher than the value of the Nil tube. The TB antigen tube is coated with the M. tuberculosis specific antigens. For a test to be considered positive, the TB antigen tube value minus the Nil tube value must be greater than or equal to 0.35 IU/mL. For additional information, please refer to http://education.Ksplice/faq/QFT (This link is being provided for informational/ educational purposes only.) REPORT COMMENT: PT HAD DUPLICATE TESTS A COPY WILL BE SENT TO DR MONTEMAYOR FASTING:YES PATIENT REFUSED SOME TESTING; PATIENT ENCOURAGED Test Performed at: [place] [address] GAUTAM YO DO,MPH Blood specimen (specimen) BLOOD SPECIMEN / Unknown 11/27/2015 8:02 AM CDT 11/27/2015 8:02 AM CDT Vibha Montemayor MD LAB - CHEMISTRY MIKA BAUTISTA Performing Organization Address [facility] de Phone Number [facility] ([facility]) * TSH (11/27/2015 7:56 AM CDT) Pathologist [facility] TSH 2.57 0.40 - 4.50 mIU/L [facility] ([facility]) Comment: REPORT COMMENT: PT HAD DUPLICATE TESTS WILL SEND TO DR MONTEMAYOR FASTING:YES Test Performed at: [facility] [place] [address] GAUTAM YO DO,MPH 11/27/2015 7:56 AM CDT 11/27/2015 7:58 AM CDT Clinton Mendoza MD LAB - CHEMISTRY MIKA BAUTISTA Performing Organization Address [facility] Co de Phone Number [facility] ([facility]) * LIPID PROFILE (11/27/2015 7:56 AM CDT) Pathologist [facility] Cholesterol Total 195 125 - 200 mg/dL [facility] ([facility]) HDL 68 > OR = 46 mg/dL [facility] ([facility]) Triglycerides 51 <150 mg/dL [facility] ([facility]) LDL Calculated 117 <130 mg/dL (calc) [facility] ([facility]) Comment: Desirable range <100 mg/dL for patients with CHD or diabetes and <70 mg/dL for diabetic patients with known heart disease. Chol/HDL Ratio 2.9 < OR = 5.0 (calc) [facility] ([facility]) Non HDL Cholesterol 127 mg/dL (calc) [facility] ([facility]) Comment: Target for non-HDL cholesterol is 30 mg/dL higher than LDL cholesterol target. Test Performed at: [facility] [address] [place] [address] GAUTAM YO DO,MPH 11/27/2015 7:56 AM CDT 11/27/2015 7:58 AM CDT Clinton Mendoza MD LAB - CHEMISTRY MIKA BAUTISTA [facility] ([facility]) * VITAMIN D 25-HYDROXY D2+D3 BY TANDEM MASS (06/23/2012 11:01 AM MANAGER BANKING) Vitamin D, 25 Hydroxy Total 63 30 - 100 ng/mL [facility] ([facility]) Comment: 25-OHD3 indicates both endogenous production and supplementation. 25-OHD2 is an indicator of exogenous sources, such as diet or supplementation. Therapy is based on measurement of Total 25-OHD, with levels <20 ng/mL indicative of Vitamin D deficiency, while levels between 20 ng/mL and 30 ng/mL suggest insufficiency. Optimal levels are > or = 30 ng/mL. Vitamin D, 25 Hydroxy D3 63 See Below ng/mL [facility] ([facility]) Comment:Reference Range: Not established Vitamin D, 25 Hydroxy D2 <4 See Below ng/mL [facility] ([facility]) Comment: Reference Range: Not established Test Performed at: [facility] [id number] [place] [phone] RAGHU DELA CRUZ MD 06/23/2012 11:0 1 AM MANAGER BANKING 06/23/2012 11:04 AM MANAGER BANKING Vibha Montemayor MD LAB - CHEMISTRY MIKA BAUTISTA Performing Organization Address [facility] de Phone Number [facility] ([facility]) * GUZMAN BLOOD SCREEN W/REFLEX TITER (06/23/2012 11:01 AM MANAGER BANKING) Pathologist [facility] GUZMAN Screen NEGATIVE NEGATIVE [facility] ([facility]) Comment: Test Performed at: [facility] [address] [place] [address] GAUTAM YO DO,MPH 06/23/2012 11:0 1 AM MANAGER BANKING 06/23/2012 11:04 AM MANAGER BANKING Vibha Montemayor MD LAB - CHEMISTRY MIKA BAUTISTA Performing Organization Address [facility] de Phone Number [facility]) * SS-A/SS-B (SJOGRENS) ANTIBODY PANEL (06/23/2012 11:01 AM MANAGER BANKING) Pathologist [facility] [place] Sjogren's Antibodies (SSA) <1.0 NEG <1.0 NEG AI [facility] Sjogren's Antibodies (SSB) <1.0 NEG <1.0 NEG AI [facility]) Comment: Test Performed at: [facility] [address] [place] [address] GAUTAM YO DO,MPH 06/23/2012 11:0 1 AM MANAGER BANKING 06/23/2012 11:04 AM MANAGER BANKING Vibha Montemayor MD LAB - CHEMISTRY MIKA BAUTISTA Performing Organization Address [facility] de Phone Number [facility]) * (ABNORMAL) RHEUMATOID ARTHRITIS PANEL (06/23/2012 11:01 AM MANAGER BANKING) Pathologist [facility] [place] Rheumatoid Factor 108(H) <14 IU/mL [facility] Cyclic Citrullinated Peptide Antibody >250(H) UNITS [facility]) Comment: Reference Range Negative: <20 Weak Positive: 20-39 Moderate Positive: 40-59 Strong Positive: >59 Interpretation Consistent with rheumatoid arthritis in a patient with polyarthritis. In early RA, these [facility]) Interpretation positive test results for both RF and anti-CCP are predictive of progressive joint [facility]) Interpretation destruction. [facility] Comment: Test Performed at: [facility] [id number] [place] [address] GAUTAM YO DO,MPH 06/23/2012 11:0 1 AM MANAGER BANKING 06/23/2012 11:04 AM MANAGER BANKING Vibha Montemayor MD LAB - SEROLOGY ORDER ROXANNA Performing Organization Address [facility]/ZIP Co de Phone Number [facility] * HEPATITIS C ANTIBODY (06/23/2012 11:01 AM MANAGER BANKING) Hepatitis C Antibody NON-REACTI VE NON-REACT PHILLIP [facility]) Signal/Cutoff 0.04 <1.00 [facility] Comment: Test Performed at: [facility] [id number] [place] [address] GAUTAM YO DO,MPH 06/23/2012 11:0 1 AM MANAGER BANKING 06/23/2012 11:04 AM MANAGER BANKING Vibha Montemayor MD LAB - CHEMISTRY ORDE RABLES Performing Organization Address [facility] de Phone Number [facility] * XR PELVIS W RIGHT HIP 2VW (06/19/2012 12:18 PM MANAGER BANKING) Anatomical Region Laterality Modality Other Impressions 06/19/2012 5:19 PM MANAGER BANKING Impression: No acute osseous abnormality or evidence of arthritis. Report dictated by Getachew Pulido MD. I, Dr. VAL HODGES M.D. have personally reviewed and interpreted this examination/study. This report was electronically signed by VAL HODGES M.D. on 06/19/2012 5:19 PM . Narrative 06/19/2012 5:19 PM MANAGER BANKING Exam: Right hip, 2 views Comparison: None History: RA Findings: The osseous structures are intact and well aligned. The hip joint space is preserved. The sacroiliac joint is intact. Procedure Note Val Hodges MD - 07/31/2017 Exam: Right hip, 2 views Comparison: None History: RA Findings: The osseous structures are intact and well aligned. The hip joint space ispreserved. The sacroiliac joint is intact. IMPRESSION Impression: No acute osseous abnormality or evidence of arthritis. Report dictated by Getachew Pulido MD. I, Dr. VAL HODGES M.D. have personally reviewed and interpreted thisexamination/study. This report was electronically signed by VAL HODGES M.D. on 06/19/20125:19 PM . Vibha Montemayor MD DIAGNOSTIC IMAGING O RDERABLES * XR PELVIS W LEFT HIP 2VW (06/19/2012 12:18 PM MANAGER BANKING) Anatomical Region Laterality Modality Other Impressions 06/19/2012 5:12 PM MANAGER BANKING Impression: No acute osseous abnormality or evidence of arthritis. Report dictated by Getachew Pulido MD. I, Dr. VAL HODGES M.D. have personally reviewed and interpreted this examination/study. This report was electronically signed by VAL HODGES M.D. on 06/19/2012 5:12 PM . Narrative 06/19/2012 5:12 PM MANAGER BANKING Exam: Left hip, 2 views Comparison: None History: RA Findings: The osseous structures are intact and aligned. The hip joint space is preserved. The sacroiliac joint is intact. Procedure Note Val Hodges MD - 07/31/2017 Exam: Left hip, 2 views Comparison: None History: RA Findings: The osseous structures are intact and aligned. The hip joint space ispreserved. The sacroiliac joint is intact. IMPRESSION Impression: No acute osseous abnormality or evidence of arthritis. Report dictated by Getachew Pulido MD. I, Dr. VAL HODGES M.D. have personally reviewed and interpreted thisexamination/study. This report was electronically signed by VAL HODGES M.D. on 06/19/20125:12 PM . Vibha Montemayor MD DIAGNOSTIC IMAGING O RDERABLES * XR HAND RIGHT 2VW (06/19/2012 12:18 PM MANAGER BANKING) Anatomical Region Laterality Modality Wrist / Hand Other Impressions 06/19/2012 5:11 PM MANAGER BANKING Impression: No erosion. Osteoarthritis involving the distal interphalangeal joints. Report dictated by Getachew Pulido MD. I, Dr. VAL HODGES M.D. have personally reviewed and interpreted this examination/study. This report was electronically signed by VAL HODGES M.D. on 06/19/2012 5:11 PM . Narrative 06/19/2012 5:11 PM MANAGER BANKING Exam: Right hand, 3 views Comparison: None History: RA Findings: The osseous structures are intact and well aligned. There is minimal joint space narrowing and marginal osteophyte formation involving the distal interphalangeal joints. Otherwise the joint spaces are preserved. There are no erosions. Bone density is normal. There is no focal soft tissue swelling. Procedure Note Val Hodges MD - 07/31/2017 Exam: Right hand, 3 views Comparison: None History: RA Findings: The osseous structures are intact and well aligned. There is minimal jointspace narrowing and marginal osteophyte formation involving the distalinterphalangeal joints. Otherwise the joint spaces are preserved. Thereare no erosions. Bone density is normal. There is no focal soft tissue swelling. IMPRESSION Impression: No erosion. Osteoarthritis involving the distal interphalangeal joints. Report dictated by Getachew Pulido MD. Renetta, Dr. VAL HODGES M.D. have personally reviewed and interpreted thisexamination/study. This report was electronically signed by VAL HODGES M.D. on 06/19/20125:11 PM . Vibha Sheyla MORGAN DIAGNOSTIC IMAGING O RDERABLES * XR HAND LEFT 2VW (06/19/2012 12:18 PM MANAGER BANKING) Anatomical Region Laterality Modality Wrist / Hand Other Impressions 06/19/2012 5:17 PM MANAGER BANKING Impression: No erosion. Mild osteoarthritis involving the distal interphalangeal joints. Report dictated by Getachew Pulido MD. I, Dr. VAL HODGES M.D. have personally reviewed and interpreted this examination/study. This report was electronically signed by VAL HODGES M.D. on 06/19/2012 5:17 PM . Narrative 06/19/2012 5:17 PM MANAGER BANKING Exam: Left hand, 3 views Comparison: None History: RA Findings: Osseous structures are intact and well aligned. There is minimal joint space narrowing and osteophyte formation involving the distal interphalangeal joints and IP joint of the thumb. Otherwise joint spaces are preserved. There is no erosion. Bone density is normal. There is no focal soft tissue swelling. Procedure Note Val Hodges MD - 07/31/2017 Exam: Left hand, 3 views Comparison: None History: RA Findings: Osseous structures are intact and well aligned. There is minimal jointspace narrowing and osteophyte formation involving the distalinterphalangeal joints and IP joint of the thumb. Otherwise joint spacesare preserved. There is no erosion. Bone density is normal. There is no focal soft tissue swelling. IMPRESSION Impression: No erosion. Mild osteoarthritis involving the distal interphalangeal joints. Report dictated by Getachew Pulido MD. Dr. VAL Jackson M.D. have personally reviewed and interpreted thisexamination/study. This report was electronically signed by VAL HODGES M.D. on 06/19/20125:17 PM . Vibha Montemayor MD DIAGNOSTIC IMAGING O RDERABLES * XR LUMBAR SPINE 4VW OR MORE (06/19/2012 12:18 PM MANAGER BANKING) Anatomical Region Laterality Modality Spine Other Impressions 06/19/2012 4:36 PM MANAGER BANKING Impression: No acute osseous injury. Vertebral endplate scalloping throughout lumbar spine suggestive of osteoporosis. Report dictated by Lang Dumont MD (senior resident care director). This report was approved by Lang Dumont M.D. on 06/19/2012 4:[address] JOSE E Jackson M.D. have personally reviewed and interpreted this examination/study. This report was electronically signed by JOSE E HESS M.D. on 06/19/2012 4:36 PM . Narrative 06/19/2012 4:36 PM MANAGER BANKING Exam: Lumbar spine, 3 views Date: 06/19/12 History: back and leg pain Comparison: None available Findings: There are no acute fractures. There is no subluxation or compression deformity. The vertebral body heights and the intervertebral disc spaces are maintained. There is mild scalloping of the vertebral endplates suggestive of osteoporosis. The normal lumbar lordosis is maintained. The sacroiliac joints are normal. Procedure Note Jose E Hess MD - 07/31/2017 Exam: Lumbar spine, 3 views Date: 06/19/12 History: back and leg pain Comparison: None available Findings: There are no acute fractures. There is no subluxation or compressiondeformity. The vertebral body heights and the intervertebral disc spacesare maintained. There is mild scalloping of the vertebral endplatessuggestive of osteoporosis. The normal lumbar lordosis is maintained. The sacroiliac joints are normal. IMPRESSION Impression: No acute osseous injury. Vertebral endplate scalloping throughout lumbar spine suggestive ofosteoporosis. Report dictated by Lang Dumont MD (senior resident care director). This report was approved by Lang Dumont M.D. on 06/19/2012 4:16 PM . I, Dr. JOSE E HESS M.D. have personally reviewed and interpretedthis examination/study. This report was electronically signed by JOSE E HESS M.D. on06/19/2012 4:36 PM . Vibha Sheyla MORGAN DIAGNOSTIC IMAG[facility] O RDERABLES Care Teams Business Line Controller Relationship Specialty Start Date End Date Rema Sorenson APRN-DIANA [address] [place] [id number] PCP - General Nurse Practitioner 02/13/24
--- OUTSIDE RECORDS SUMMARY | 2024-06-14 00:33 | XMS_ITS | Referral Summary ---
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
--- OUTSIDE RECORDS SUMMARY | 2024-06-14 00:33 | XMS_ITS | Encounter Summary ---
Author Organization [facility] Address [address] [place] [address] Care Team Providers Care Rail Manager Name Role Phone Diana Cooney MD Primary Care Provider [phone] Rema Sorenson Primary Care Provider + Reason for Visit * Reason Onset Date Comments MEDICATION REFILL 07/18/2019 Encounter Details Date Type Department Care Team (Late st Contact Info) Description 07/18/2019 Refill [facility] [address] [place] [address] Avis Powell MD [address] [place] [phone] MEDICATION REFILL Social History Tobacco Use Types Packs/Day Years Used Date Smoking Tobacco: Former Smokeless Tobacco: Never Alcohol Use Standard Drinks/Week Comments No 0 (1 standard drink = 0.6 oz pur e alcohol) Sex and Gender Information Value Date Recorded Sex Assigned at Female 08/03/2021 5:20 PM CDT Gender Identity Female 08/03/2021 5:20 PM CDT Sexual Orientation Choose not to disclose 2021 5:20 PM CDT documented as of this encounter Miscellaneous Notes * Telephone Encounter - Amy Jones - 07/20/2019 9:07 AM CDT Refill Request Thu MURRAY 8.1319 MAR 5.26.20 Allergies: No Known Allergies Pended Medication Order: Requested Prescriptions Pending Prescriptions Disp Refills ??? Methotrexate Sodium (METHOTREXATE, PF,) 50 MG/2ML injection 8 mL 3 documented in this encounter Plan of Treatment Upcoming Encounters Date Type Department Care Team (Late st Contact Info) Description 07/03/2024 3:40 PM SITE LEADER Office Visit [facility] - Rheumatology [address] [place] [address], [place] [phone] Avis Powell MD [address] [place] [address] [place] [address] 08/21/2024 1:30 PM CDT Office Visit [facility] - Ophthalmology [address] [place] [address], [place] [phone] Ly Plunkett MD [address] [place] [address] [place] [phone] documented as of this encounter Visit Diagnoses Not on filedocumented in this encounter Care Teams Rail Manager Relationship Specialty Start Date End Date Diana Cooney MD [address] [place] [id number] PCP - General 11/08/17 02/12/24 Rema Sorenson APRN-SPOOL SALVAGER [address] [place] [phone] PCP - General Nurse Practitioner 02/13/24 documented as of this encounter
[2024-06-14 06:55] VITALS: BP 143/111; PULSE 81; RESP 20; TEMP 36.1; O2SAT 98
--- NOTE | 2024-06-14 07:05 | P.PNAN_ITS ---
Anes - Initial Pre Proc Eval Procedure: Operation Date: 06/14/24 08:00 Proposed Procedures p Screening Colonoscopy - Kevin Garcia MD Date/Time: 06/14/24 07:05 Surgeon: Kevin Garcia MD Pre Op Diagnosis: Screening for malignant neoplasm of colon. Patient Data Age: 78 Gender: F Height: 1.63 m Weight: 69.9 kg Last Vital Signs Temp 96.9 F L 06/14/24 06:55 Pulse 81 06/14/24 06:55 Resp 20 06/14/24 06:55 BP 143/111 H 06/14/24 06:55 Pulse Ox 98 06/14/24 06:55 Allergies Allergy/AdvReac Type Severity Reaction Status Date / Time No Known Allergies Allergy Verified 06/14/24 06:48 Home Medications ?Medication ?Instructions ?Recorded ?Confirmed ?Type adalimumab 40 mg/0.8 mL 0.8 mg subcut .every 2 weeks 03/22/19 06/14/24 History subcutaneous pen kit (Humira Pen) hydroxychloroquine 200 mg tablet 200 mg PO .qd 09/09/20 06/14/24 History methotrexate sodium 2.5 mg tablet 20 mg (8 x 2.5 mg) PO WEEKLY #32 03/17/21 06/14/24 Rx tabs folic acid 1 mg tablet 1 mg PO DAILY 04/13/22 06/14/24 History acetaminophen 500 mg capsule 500 mg PO Q6H PRN Pain 07/06/23 06/13/24 History cyclosporine 0.05 % eye drops in a 1 drp EACH EYE TID 07/06/23 06/14/24 History dropperette (Restasis) diclofenac sodium 1 % topical gel 2 g topical PRN PRN Pain 07/06/23 06/13/24 History (Voltaren Arthritis Pain) tizanidine 4 mg tablet 4 mg PO PRN PRN Muscle Spasm 07/06/23 06/13/24 History venlafaxine 225 mg tablet,extended 225 mg PO DAILY #90 tabs 12/30/23 06/14/24 Rx release 24 hr losartan 50 mg tablet See Rx Instructions .Route 01/10/24 06/14/24 Rx .COMPLEX #90 tabs triamcinolone acetonide 55 mcg 2 spray intranasal DAILY #16.9 mL 10/16/24 02/13/25 Rx nasal spray aerosol alendronate 70 mg tablet See Rx Instructions .Route 03/23/24 06/14/24 Rx .COMPLEX #12 tabs trazodone 100 mg tablet 100 mg PO QHS #90 tabs 04/11/24 06/14/24 Rx latanoprost 0.005 % eye drops drp EACH EYE 06/13/24 06/13/24 History omeprazole 40 mg capsule,delayed See Rx Instructions .Route 06/13/24 06/14/24 Rx release .COMPLEX #90 caps Patient hx anesthesia problems: none Family hx anesthesia problems: none Results Review: All pre-operative results and documents have been reviewed as part of the pre- operative evaluation. 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, unspecified Major depressive disorder, recurrent episode, mild with anxious distress Abnormal colonoscopy Cystocele Cystocele Surgical History Surgical History H/O: hysterectomy Family History Family History Other Cerebrovascular accident Family history of cardiovascular disease Social History Social History Smoking packs per day: 0.5 Smoking cigarettes per day: 10.0 Years smoked: 5 Smoking pack-years: 2.50 Smoking status: Former smoker Tobacco type: cigarettes Second hand tobacco smoke exposure: No Smoking end date: 05/02/68 Alcohol intake: current Drinks per week: 7 Alcohol use details: 1 glass of wine every night Substance use: never Substance use type: does not use Last use: last used marijuana in june Lack of Transportation: No Lack of Food: Sometimes True Current Housing: Decline to Answer Concerned About Future Housing: Decline to Answer Difficulty Paying Gas/Electric Bills: Decline to Answer Difficulty Paying for Meds: Decline to Answer Currently Unemployed: Decline to Answer Education: Decline to Answer Difficulty w/ Childcare or Family Care: Decline to Answer Living arrangements: alone Additional [facility] Spiritual care concerns: No Anes - Eval Final PreProcedure Day of Procedure 06/14/24 07:05 Patient weight: overweight Lungs: normal air movement Airway: Mallampati scale class II Neurological: alert and oriented Last oral intake: >/= 8 hours ASA classification: III Emergent: no Anesthetic plan: proceed Anesthesia type and monitoring: general GIVS and standard monitoring Results Review: All pre-operative results and documents have been reviewed as part of the pre- operative evaluation. HTN, long time ex smoker. Informed Consent: The patient's anesthetic plan and its attendant risks and benefits were discussed with the patient/family/POA. Questions were solicited and answers provided to the satisfaction of the patient/family/POA.
[2024-06-14] MEDS: LACTATED RINGERS 1,000 ML 150 ML IV CONT (07:08)
[2024-06-14 07:15] VITALS: BP 123/80
--- NOTE | 2024-06-14 07:57 | PM.IMHP ---
H&P: HPI History of Present Illness Date/Time: 06/14/24 07:57 Chief Complaint: Screening colonoscopy Narrative: This is the patient's 2nd colonoscopy after more than 20 years.. There are no GI symptoms and there is no family history of colorectal cancer. 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, unspecified Major depressive disorder, recurrent episode, mild with anxious distress Abnormal colonoscopy Cystocele Cystocele Surgical History Surgical History H/O: hysterectomy Family History Family History Other Cerebrovascular accident Family history of cardiovascular disease Social History Social History Smoking packs per day: 0.5 Smoking cigarettes per day: 10.0 Years smoked: 5 Smoking pack-years: 2.50 Smoking status: Former smoker Tobacco type: cigarettes Second hand tobacco smoke exposure: No Smoking end date: 05/02/68 Alcohol intake: current Drinks per week: 7 Alcohol use details: 1 glass of wine every night Substance use: never Substance use type: does not use Last use: last used marijuana in june Lack of Transportation: No Lack of Food: Sometimes True Current Housing: Decline to Answer Concerned About Future Housing: Decline to Answer Difficulty Paying Gas/Electric Bills: Decline to Answer Difficulty Paying for Meds: Decline to Answer Currently Unemployed: Decline to Answer Education: Decline to Answer Difficulty w/ Childcare or Family Care: Decline to Answer Living arrangements: alone Additional living arrangements comments: [facility] concerns: No Meds Home Medications and Allergies Home Medications ?Medication ?Instructions ?Recorded ?Confirmed ?Type adalimumab 40 mg/0.8 mL 0.8 mg subcut .every 2 weeks 03/22/19 06/14/24 History subcutaneous pen kit (Humira Pen) hydroxychloroquine 200 mg tablet 200 mg PO .qd 09/09/20 06/14/24 History methotrexate sodium 2.5 mg tablet 20 mg (8 x 2.5 mg) PO WEEKLY #32 03/17/21 06/14/24 Rx tabs folic acid 1 mg tablet 1 mg PO DAILY 04/13/22 06/14/24 History acetaminophen 500 mg capsule 500 mg PO Q6H PRN Pain 07/06/23 06/13/24 History cyclosporine 0.05 % eye drops in a 1 drp EACH EYE TID 07/06/23 06/14/24 History dropperette (Restasis) diclofenac sodium 1 % topical gel 2 g topical PRN PRN Pain 07/06/23 06/13/24 History (Voltaren Arthritis Pain) tizanidine 4 mg tablet 4 mg PO PRN PRN Muscle Spasm 07/06/23 06/13/24 History venlafaxine 225 mg tablet,extended 225 mg PO DAILY #90 tabs 12/30/23 06/14/24 Rx release 24 hr losartan 50 mg tablet See Rx Instructions .Route 01/10/24 06/14/24 Rx .COMPLEX #90 tabs triamcinolone acetonide 55 mcg 2 spray intranasal DAILY #16.9 mL 02/15/24 06/14/24 Rx nasal spray aerosol alendronate 70 mg tablet See Rx Instructions .Route 03/23/24 06/14/24 Rx .COMPLEX #12 tabs trazodone 100 mg tablet 100 mg PO QHS #90 tabs 04/11/24 06/14/24 Rx latanoprost 0.005 % eye drops drp EACH EYE 06/13/24 06/13/24 History omeprazole 40 mg capsule,delayed See Rx Instructions .Route 06/13/24 06/14/24 Rx release .COMPLEX #90 caps Allergies Allergy/AdvReac Type Severity Reaction Status Date / Time No Known Allergies Allergy Verified 06/14/24 06:48 Vital Signs Vital Signs - 24 hr 06/14/24 06:55 06/14/24 07:15 Temperature 96.9 F L Pulse Rate 81 Respiratory Rate 20 Blood Pressure 143/111 H 123/80 Pulse Oximetry 98 Exam Const: General: cooperative and healthy appearing Resp: Effort & Inspection: normal respiratory effort and able to speak in complete sentences Auscultation: clear to auscultation bilaterally Cardio: Rate: regular rate Rhythm: regular rhythm GI: Inspection: normal to inspection GI Palp: No No hepatosplenomegaly present Auscultation: normal bowel sounds Rectal Exam: deferred Skin: General skin exam: normal color Psych: Appearance: grossly normal Mental Status: mental status grossly normal Assessment and Plan Assessment and plan (1) Encounter for screening colonoscopy: Code(s): Z12.11 - Encounter for screening for malignant neoplasm of colon Status: Acute Assessment and Plan: The patient is deemed a good candidate for the procedure. Consent signed. Will proceed.
[2024-06-14 08:35] VITALS: BP 107/64; PULSE 74; RESP 16; O2SAT 98
[2024-06-14 08:45] VITALS: BP 107/72; PULSE 75; RESP 17; O2SAT 97
[2024-06-14 08:55] VITALS: BP 119/78; PULSE 74; RESP 20; O2SAT 97
== END 2024-06-14 09:15 | disposition home or self-care (01) ==
PROVIDERS: PCP Nurse Practitioner Family; Visit Provider Internal Medicine Gastroenterology
PROC: 0DJD8ZZ Inspection of Lower Intestinal Tract, Via Natural or Artificial Opening Endoscopic (ICD-10-PCS; CPT 45378; principal; 2024-06-14 08:00)
DX: Z12.11 Encounter for screening for malignant neoplasm of colon (principal); G89.4 Chronic pain syndrome; F41.9 Anxiety disorder, unspecified; M19.041 Primary osteoarthritis, right hand; L82.1 Other seborrheic keratosis; M19.09 Primary osteoarthritis, other specified site; G60.9 Hereditary and idiopathic neuropathy, unspecified; F33.8 Other recurrent depressive disorders; Z79.620 Long term (current) use of immunosuppressive biologic; Z79.83 Long term (current) use of bisphosphonates; Z98.890 Other specified postprocedural states; Z87.891 Personal history of nicotine dependence; Z82.49 Family history of ischemic heart disease and other diseases of the circulatory system
CPT/HCPCS: 45378; J2003; J2704; J7120

== ENCOUNTER 2024-08-01 13:38 | Outpatient (CLI) | payer OTHER, SELFPAY ==
--- NOTE | ~2024-08-01 | CT_ITS ---
EXAMINATION: CT brain wo con DATE: 08/01/2024 13:59 INDICATION: Headache. TECHNIQUE: Computed tomography (CT) of the head was performed without intravenous contrast. The dose- length product was 529.67 mGy-cm. Automated exposure control and iterative reconstruction technique w ere employed. COMPARISON: None FINDINGS: Mild generalized atrophy. There are scattered mild periventricular and subcortical white ma tter changes, most likely related to small vessel ischemic disease (microangiopathy). Paranasal sinus es and mastoids are pneumatized. No depressed skull fractures. No acute infarction, hemorrhage, mass or mass effect. IMPRESSION: 1. No acute intracranial abnormality. Reviewed, dictated and finalized at location A.
--- OUTSIDE RECORDS SUMMARY | 2024-08-01 14:55 | XMS_ITS | Clinical Summary ---
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 Gender Identity Not on file Sexual Orientation Not on file Obstetrics History Plan of Treatment [place] [address] [facility] Member Subscriber Plan / Payer (Ef fective 2018-Present) Name:Thu Gaviria Member ID:[id number] Relation to Subscriber:Self Name:Thu Gaviria Subscriber ID:[id number] Payer ID:[id number] Type:[employer] HMO/PPO Address: [facility] [id number] [place] [address] Care Teams Direct Mail Manager Relationship Specialty Start Date End Date Diana Cooney MD [address] [place] [address] PCP - General Family Medicine 12/12/18
--- OUTSIDE RECORDS SUMMARY | 2024-08-01 14:55 | XMS_ITS | Clinical Summary ---
Author Organization [facility] [employer] Address [address] [place] [address] Care Team Providers Care Sole Sewer Hand Name Role Phone Rema Sorenson KALEB-CAMPGROUND HAND Primary Care Provider + Source Comments [facility] [employer],non-owned Affiliates and Associated Physician Practices is amultiple site organization consisting of ambulatory clinics and hospital sitesin [place], [place], [place] and [place]. This disclosure is being madepursuant to the Care Everywhere program and may not contain all information available regarding this patient. Last updated 18.[facility] [employer] Allergies No known active allergies Medications * Be aware that medications may not be up to date on this document. Alwaysverify current medications with the patient. Medication Sig Dispensed Refills Start Date End Date Status traZODone (DESYREL) 100 MG tablet Take 1 (one) tablet by mouth at bedtime 3 11/10/2017 Active fluticasone propionate (FLONASE) 50 MCG/ACT nasal spray [place] 2 (two) sprays into each nostril once [...] tablet by mouth daily with breakfast Active neomycin-polymyx in-dexameth (Maxitrol) ophthalmic ointment APPLY SMALL AMOUNT IN BOTH EYES EVERY NIGHT AT BEDTIME 10/13/2023 Active Hyrimoz 40 MG/0.4ML injectionIndicat ions:Rheumatoid arthritis involving multiple sites with positive rheumatoid [...] 4 times daily 5 mL 03/13/2024 Active methotrexate 2.5 MG tablet TAKE 8 TABLETS BY MOUTH ONCE EVERY 7 DAYS 102 tablet 1 04/30/2024 Active cycloSPORINE (Restasis) 0.05 % ophthalmic suspension Instill 1 (one) drop into both eyes 2 times daily 06/08/2024 Active ciprofloxacin (Cipro) 500 MG tablet Take 1 (one) tablet by mouth once daily 3 tablet 07/03/2024 Active folic acid (Folvite) 1 MG tabletIndication s:Rheumatoid arthritis involving multiple sites with positive rheumatoid factor (HCC) Take 1 (one) tablet by mouth once daily 90 tablet 4 07/03/2024 Active hydroxychloroqui ne (Plaquenil) 200 MG tablet Take 1.5 (one and one-half) tablets by mouth once daily 150 tablet 1 07/03/2024 Active tiZANidine (Zanaflex) 4 MG tablet TAKE 1 TABLET BY MOUTH EVERY 8 HOURS NEEDED FOR MUSCLE SPASMS 90 tablet 5 08/17/2023 07/03/2024 Discontinued (Dose Adjustment) folic acid (Folvite) 1 MG tabletIndication s:Rheumatoid arthritis involving multiple sites with positive rheumatoid factor (HCC) Take 1 (one) tablet by mouth once daily 90 tablet 2 11/16/2023 07/03/2024 Discontinued (Reorder) HYDROcodone-acet aminophen ([place]) 5-325 MG tabletIndication s:S/P eye surgery Take 1 (one) tablet by mouth every 6 hours as needed for Pain 10 tablet 03/13/2024 07/03/2024 Discontinued (List Clean-Up) hydroxychloroqui ne (Plaquenil) 200 MG tablet Take 1.5 (one and one-half) tablets by mouth once daily 90 tablet 05/10/2024 07/03/2024 Discontinued (Reorder) Active Problems Problem Noted Date Diagnosed Date Arthritis of carpometacarpal (CMC) joint of righ t thumb 08/22/2020 De Quervain's disease (radial styloid tenosynovi tis) 08/22/2020 Rheumatoid arthritis involvi ng multiple sites with positive rheumatoid factor 12/11/2017 Other continuous churn buttermaker (current) drug therapy 7 Encounter for therapeutic drug level monitoring 08/16/2016 Encounter for monitoring immunomodulating therap y 08/16/2016 10/13/2022 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 Pain in hip 06/19/2012 Pain of hand 06/19/2012 Encounters Date Type Department Care Team Description 07/04/2024 Refill [facility] - Rheumatology [address] [place] [phone] Avis Powell MD Refill Request 07/03/2024 3:40 PM EXCHANGE CLERK Office Visit [facility] - Rheumatology [address] [place] [phone] Avis Powell MD Rheumatoid arthritis involving multiple sites with positive rheumatoid factor (Primary Dx); Screening-pulmonary TB; Encounter for long-term (current) use of high-risk medication; Other senior living (current) drug therapy 07/03/2024 Travel 06/28/2024 Orders Only [facility] - Rheumatology [address] [place] [phone] Avis Powell MD 05/22/2024 1:45 PM EXCHANGE CLERK Office Visit [facility] - Ophthalmology [address] [place] [phone] Ly Plunkett MD Diplopia (Primary Dx); Esotropia 05/22/2024 Travel 05/10/2024 Refill [facility] - Rheumatology [address] [place] [address], [facility] [place] [address] Avis Powell MD MEDICATION REFILL 05/09/2024 Refill [facility] - Rheumatology [address] [place] [address], [facility] [place] [address] Avis Powell MD Refill Request from Last 3 Months Immunizations Name Administration [...] 1 965 - 1970 Smokeless Tobacco: Never Tobacco Cessation:Counseling Given: Not Answered Alcohol Use Standard Drinks/Week Comments Yes 7 [...] Sign Reading Time Taken Comments Blood Pressure 108/74 07/03/2024 3:51 PM EXCHANGE CLERK Pulse 80 07/03/2024 3:51 PM EXCHANGE CLERK Temperature 36.3 C (97.3 F) 07/03/2024 3:51 PM EXCHANGE CLERK Respiratory Rate 14 03/13/2024 10:15 AM EXCHANGE CLERK Oxygen Saturation 96% 07/03/2024 3:51 PM EXCHANGE CLERK Inhaled Oxygen Concentration - - Weight 74.4 kg (164 lb) 07/03/2024 3:51 PM EXCHANGE CLERK Height 162.6 cm (5' 4 ) 07/03/2024 3:51 PM EXCHANGE CLERK Body Mass Index 28.15 07/03/2024 3:51 PM EXCHANGE CLERK Plan of Treatment Upcoming Encounters Date Type Department Care Team (Late st Contact Info) Description 08/21/2024 1:30 PM CDT Office Visit [facility] - Ophthalmology [address] [place] [address], [place] [address] Ly Plunkett MD [address] [place] [address] [place] [address] 12/04/2024 2:40 PM CDT Office Visit [facility] - Rheumatology [address] [place] [address], [place] [address] Avis Powell MD [address] [place] [address] [place] [address] Health Maintenance Due Date Last Done Comments BONE DENSITY TESTING 1945 DTAP/TDAP/TD VACCINES (1 - Tdap) 07/28/1966 PNEUMOCOCCAL VACCINE 50+ (1 of 1 - PCV) 07/28/1997 ZOSTER VACCINE (1 of 2) 07/28/1997 Respiratory Syncytial Virus (RSV) Vaccine Pt: or over 60 yrs (1 - 1-dose 75+ series) 07/28/2022 COVID-19 VACCINE ( season) 2024 01/25/2022, 08/12/2021, 01/06/2021, Additional history exists INFLUENZA VACCINE (#1) 2024 2, 01/27/2021, 02/16/2019 DEPRESSION SCREENING 05/02/2024 05/19/2022 HEPATITIS [...] complete this topic MENINGOCOCCAL (Group B) VACCINE SHARED DECISION-MAKING Aged Out No longer eligible based on patient's age to complete this topic MENINGOCOCCAL GROUPS A/C/Y/W VACCINE Aged Out No longer eligible based [...] Procedure Name Priority Date/Time Associated Diagnosis Comments C-REACTIVE PROTEIN 06/28/2024 12 :25 PM EXCHANGE CLERK URINALYSIS W/MICROSCOPIC REFLEX TO CULTURE 06/28/2024 12:25 PM EXCHANGE CLERK CBC W AUTO DIFFERENTIAL 06/28/2024 12:25 PM EXCHANGE CLERK ERYTHROCYTE SEDIMENTATION RATE 06/28/2024 12:25 PM EXCHANGE CLERK COMPREHENSIVE METABOLIC PANEL 06/28/2024 12:25 PM EXCHANGE CLERK CULTURE URINE 06/28/2024 12:25 PM EXCHANGE CLERK CULTURE URINE REFLEXED II 06/28/2024 12:25 PM EXCHANGE CLERK HEPATITIS C ANTIBODY Routine 06/23/2012 11:01 AM EXCHANGE CLERK from Last 3 Months or Most Recently Relevant to Health Maintenance Results * CULTURE URINE REFLEXED II (06/28/2024 12:25 PM EXCHANGE CLERK) Reflexive Urine Culture See Below [facility] Comment: CULTURE INDICATED - RESULTS TO FOLLOW Test Performed at: [facility] [address] JORGE STALLINGS MD 06/28/2024 12:2 5 PM EXCHANGE CLERK 06/28/2024 12:26 PM EXCHANGE CLERK Avis Powell MD LAB - MICROBIO LOGY ORDERABLES [facility] [address] [place] [address] * (ABNORMAL) URINALYSIS W/MICROSCOPIC REFLEX TO CULTURE (06/28/2024 12:25 PM EXCHANGE CLERK) Color UA YELLOW YELLOW [facility] Appearance TURBID(A) CLEAR [facility] Specific Irwin UA 1.013 1.001 - 1.035 [facility] pH UA 6.0 5.0 - 8.0 [facility] Glucose UA NEGATIVE NEGATIVE [facility] Bilirubin UA NEGATIVE NEGATIVE [facility] Ketone UA NEGATIVE NEGATIVE [facility] Blood UA 3+(A) NEGATIVE [facility] Protein UA 3+(A) NEGATIVE [facility] Nitrite POSITIVE(A) NEGATIVE [facility] Leukocyte Esterase 3+(A) NEGATIVE [facility] WBC UA PACKED(A) < OR = 5 /HPF [facility] RBC UA > OR = 60(A) < OR = 2 /HPF [facility] Epithelial Cell UA 0-5 < OR = 5 /HPF [facility] Transitional Epithelial Cells [facility] Renal Epithelial Cells [facility] Bacteria UA FEW(A) NONE SEEN /HPF [facility] Calcium Oxalate Crystals [...] elements seen were reported. Test Performed at: [facility] [address] JORGE STALLINGS MD 06/28/2024 12:2 5 PM EXCHANGE CLERK 06/28/2024 12:26 PM EXCHANGE CLERK Avis Powell MD LAB - URINALYS IS ORDERABLES Performing Organization Address [facility]/ZIP Co de Phone Number [facility] [address] [place] [address] * C-REACTIVE PROTEIN (06/28/2024 12:25 PM EXCHANGE CLERK) C-Reactive Protein <5.0 <8.0 mg/L [facility] Comment: Test Performed at: [facility] [address] JORGE STALLINGS MD 06/28/2024 12:2 5 PM EXCHANGE CLERK 06/28/2024 12:26 PM EXCHANGE CLERK Avis Powell MD LAB - CHEMISTR Y ORDERABLES [employer] [address] [place] [address] * (ABNORMAL) CULTURE URINE (06/28/2024 12:25 PM EXCHANGE CLERK) Culture (A) [facility] Comment: CULTURE, URINE, ROUTINE Micro Number: [id number] Test Status: Final Specimen Source: Urine Specimen Quality: Adequate Result: Greater than 100,000 CFU/mL of Klebsiella oxytoca COMMENT: Additional non-predominating organism(s) isolated. These organisms, commonly found on external and internal genitalia, are considered colonizers. No further testing performed. K.oxytoca INT RYLAND AMOX/CLAVULANATE S <=2 AMP/SULBACTAM I 16 CEFAZOLIN NR <=4 2 CEFEPIME S <=0.12 CEFTAZIDIME S <=1 CEFTRIAXONE S <=0.25 CIPROFLOXACIN S <=0.06 GENTAMICIN S <=1 IMIPENEM S <=0.25 LEVOFLOXACIN S <=0.12 MEROPENEM S <=0.25 NITROFURANTOIN R 256 PIP/TAZOBACTAM S <=4 TRIMETHOPRIM/SULFA S <=20 S = Susceptible I = Intermediate R = Resistant NS = Not susceptible SDD = Susceptible Dose Dependent * = Not Tested NR = Not Reported NN = See Therapy Comments THERAPY COMMENTS Note 1: For infections other than uncomplicated UTI caused by E. coli, K. pneumoniae or P. mirabilis: Cefazolin is resistant if RYLAND > or = 8 mcg/mL. (Distinguishing susceptible versus intermediate for isolates with RYLAND < or = 4 mcg/mL requires additional testing.) Note 2: For uncomplicated UTI caused by E. coli, K. pneumoniae or P. mirabilis: Cefazolin is susceptible if RYLAND <32 mcg/mL and predicts susceptible to the oral agents cefaclor, cefdinir, cefpodoxime, cefprozil, cefuroxime, cephalexin and loracarbef. REPORT COMMENT: FASTING:NO Test Performed at: [facility] [address] JORGE STALLINGS MD 06/28/2024 12:2 5 PM EXCHANGE CLERK 06/28/2024 12:26 PM EXCHANGE CLERK Avis Powell MD LAB - MICROBIO LOGY ORDERABLES Performing Organization Address [facility] de Phone Number [address] [address] * ERYTHROCYTE SEDIMENTATION RATE (06/28/2024 12:25 PM EXCHANGE CLERK) Pathologist [facility] Erythrocyte Sedimentation Rate Westergren 5 < OR = 30 mm/h [facility] Comment: Test Performed at: [facility] [employer] [address] JORGE STALLINGS MD 06/28/2024 12:2 5 PM EXCHANGE CLERK 06/28/2024 12:26 PM EXCHANGE CLERK Avis Powell MD LAB - HEMATOLO GY ORDERABLES Performing Organization Address [facility] de Phone Number [place] [phone] * CBC WITH DIFFERENTIAL (06/28/2024 12:25 PM EXCHANGE CLERK) [facility] White Blood Cell Count 9.2 3.8 - 10.8 Thousand/u L [facility] RBC 4.38 3.80 - 5.10 Million/uL [facility] Hemoglobin 13.8 11.7 - 15.5 g/dL [facility] Hematocrit 42.6 35.0 - 45.0 % [facility] MCV 97.3 80.0 - 100.0 fL [facility] MCH 31.5 27.0 - 33.0 pg [facility] MCHC 32.4 32.0 - 36.0 g/dL [facility] Comment: For adults, a slight decrease in the calculated MCHC value (in the range of 30 to 32 g/dL) is most likely not clinically significant; however, it should be interpreted with caution in correlation with other red cell parameters and the patient's clinical condition. RDW 12.7 11.0 - 15.0 % [facility] Platelet Count 242 140 - 400 Thousand/u L [facility] MPV 10.4 7.5 - 12.5 fL [facility] Neutrophil Absolute 5262 1500 - 7800 cells/uL [facility] Lymphocytes Absolute 3146 850 - 3900 cells/uL [facility] Absolute Monocytes 644 200 - 950 cells/uL [facility] Eosinophils Absolute 110 15 - 500 cells/uL [facility] Basophils Absolute 37 0 - 200 cells/uL [facility] Granulocytes % 57.2 % [facility] Lymphocytes % 34.2 % [facility] Monocytes % 7.0 % [facility] Eosinophils % 1.2 % [facility] Basophils % 0.4 % [facility] Comment: Test Performed at: [facility] [address] JORGE STALLINGS MD 06/28/2024 12:2 5 PM EXCHANGE CLERK 06/28/2024 12:26 PM EXCHANGE CLERK Avis Powell MD LAB - HEMATOLO GY ORDERABLES [address] [address] * (ABNORMAL) COMPREHENSIVE METABOLIC PANEL (06/28/2024 12:25 PM EXCHANGE CLERK) Glucose 95 65 - 139 mg/dL [facility] Comment: Non-fasting reference interval BUN 17 7 - 25 mg/dL [facility] Creatinine 1.16(H) 0.60 - 1.00 mg/dL [facility] eGFR by Cystatin C 49(L) > OR = 60 mL/min/1. 73m2 [facility] BUN/Creatinine Ratio 15 6 - 22 (calc) [facility] Sodium 140 135 - 146 mmol/L [facility] Potassium 4.6 3.5 - 5.3 mmol/L [facility] Chloride 105 98 - 110 mmol/L [facility] CO2 30 20 - 32 mmol/L [facility] Calcium 8.8 8.6 - 10.4 mg/dL [facility] Protein Total 6.9 6.1 - 8.1 g/dL [facility] Albumin 4.4 3.6 - 5.1 g/dL [facility] Globulin Total 2.5 1.9 - 3.7 g/dL (calc) [facility] Albumin/Globulin Ratio 1.8 1.0 - 2.5 (calc) [facility] Bilirubin Total 0.4 0.2 - 1.2 mg/dL [facility] Alkaline Phosphatase 48 37 - 153 U/L [facility] AST 16 10 - 35 U/L [facility] ALT 6 6 - 29 U/L [facility] Comment: Test Performed at: [facility] [address] JORGE STALLINGS MD 06/28/2024 12:2 5 PM EXCHANGE CLERK 06/28/2024 12:26 PM EXCHANGE CLERK Avis Powell MD LAB - CHEMISTR Y ORDERABLES [facility] [address] [place] [address] * HEPATITIS C ANTIBODY (06/23/2012 11:01 AM EXCHANGE CLERK) Hepatitis C Antibody NON-REACTI VE NON-REACT PHILLIP [facility] ([facility]) Signal/Cutoff 0.04 <1.00 [facility] ([facility]) Comment: Test Performed at: [facility] [address] [place] [address] GAUTAM YO DO,MPH 06/23/2012 11:0 1 AM EXCHANGE CLERK 06/23/2012 11:04 AM EXCHANGE CLERK Vibha Carrion MD LAB - CHEMISTRY ORDUrsula BAUTISTA Performing Organization Address City/State/[facility] Co de Phone Number [facility] ([facility]) from Last 3 Months or Most Recently Relevant to Health Maintenance Care Teams Sole Sewer Hand Relationship Specialty Start Date End Date Rema Sorenson APRN-CAMPGROUND HAND [address] [place] [address] PCP - General Nurse Practitioner 02/13/24
--- OUTSIDE RECORDS SUMMARY | 2024-08-01 14:55 | XMS_ITS | Encounter Summary ---
Author Organization [facility] Address [address] [place] [address] Care Team Providers Care Dairy Farm Manager Name Role Phone Diana Cooney MD Primary Care Provider [phone] Rema Sorenson Primary Care Provider + Reason for Visit * Reason Onset Date Comments MEDICATION REFILL 07/18/2019 Encounter Details Date Type Department Care Team (Late st Contact Info) Description 07/18/2019 Refill [facility] [address] [place] [address] Avis Powell MD [address] [place] [address] MEDICATION REFILL Social History Tobacco Use Types [...] Description 08/21/2024 1:30 PM CDT Office Visit [facility] - Ophthalmology [address] [place] [address], [place] [phone] Ly Plunkett MD [address] [place] [address] DEPT [place] [address] 12/04/2024 2:40 PM CDT Office Visit [facility] - Rheumatology [address] [place] [address], [place] [address] Avis Powell MD [address] [place] [address] DIV [place] [phone] documented as of this encounter Visit Diagnoses Not on filedocumented in this encounter Care Teams Dairy Farm Manager Relationship Specialty Start Date End Date Diana Cooney MD [address] [place] [id number] PCP - General 11/08/17 02/12/24 Rema Sorenson APRN-HAND SPRAY OPERATOR [address] [place] [phone] PCP - General Nurse Practitioner 02/13/24 documented as of this encounter
--- OUTSIDE RECORDS SUMMARY | 2024-08-01 14:55 | XMS_ITS | Referral Summary ---
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
== END 2024-08-01 13:39 | disposition home or self-care (01) ==
PROVIDERS: PCP Nurse Practitioner Family; Visit Provider Nurse Practitioner Family
DX: R51.9 Headache, unspecified (principal)
CPT/HCPCS: 70450

== ENCOUNTER 2024-10-22 12:59 | Outpatient (CLI) | payer OTHER, SELFPAY ==
--- NOTE | ~2024-10-22 | DEXA_ITS ---
Bone Density Report Name: CHRISTINE RIZO Age: 79 Sex: Female Ethnicity: White Date of : 1945 Indication: osteopenia; hysterectomy; rheumatoid arthritis; Referring Provider: BUSHRA CABAN Study: Bone densitometry was performed. Exam Date: October 22, 2024 Accession number: [id number] Bone Density: Region BMD T-score Z-score Classification AP Spine(L1-L4) 0.919 -1.2 1.4 Osteopenia Femoral Neck (Left) 0.642 -1.9 0.3 Osteopenia Total Hip (Left) 0.767 -1.4 0.5 Osteopenia Femoral Neck (Right) 0.661 -1.7 0.5 Osteopenia Total Hip (Right) 0.746 -1.6 0.3 Osteopenia Total Hip Mean 0.757 -1.5 0.4 Osteopenia World Health Organization criteria for BMD impression classify patients as: Normal (T-score at or above -1.0), Osteopenia (T-score between -1.0 and -2.5), or Osteoporosis (T-score at or below -2.5). 10-year Fracture Risk(1): Major Osteoporotic Fracture 17% Hip Fracture 4.7% Reported Risk Factors: [place] (), Neck BMD=0.642, BMI=29.0, rheumatoid arthritis (1) FRAX(R) Version 3.08. Fracture probability calculated for an untreated patient. Fracture probability may be lower if the patient has received treatment. Previous Exams: Region Exam Age BMD T-score BMD Change BMD Change Date g/cm2 vs Baseline vs Previous AP Spine (L1-L4) 10/22/2024 79 0.919 -1.2 0.111 (13.7%)# 0.024 (2.7%)* 03/11/2022 76 0.895 -1.4 0.087 (10.8%)# 0.068 (8.2%)* 01/07/2017 71 0.827 -2.0 0.019 (2.4%)# -0.009 (-1.1%) 12/23/2014 69 0.836 -1.9 0.028 (3.5%)# 0.028 (3.5%)# 12/06/2012 67 0.808 -2.2 Total Hip(Left) 10/22/2024 79 0.767 -1.4 0.022 (2.9%)# 0.048 (6.6%)* 03/11/2022 76 0.719 -1.8 -0.026 (-3.5%) -0.060 (-7.7%) 01/07/2017 71 0.779 -1.3 0.034 (4.6%)# 0.045 (6.1%)* 12/23/2014 69 0.734 -1.7 -0.011 (-1.5%) -0.011 (-1.5%) 12/06/2012 67 0.745 -1.6 Total Hip(Right) 10/22/2024 79 0.746 -1.6 -0.028 (-3.6%) 0.006 (0.7%) 03/11/2022 76 0.741 -1.7 -0.033 (-4.3%) -0.054 (-6.8%) 01/07/2017 71 0.795 -1.2 0.020 (2.6%)# 0.040 (5.3%)* 12/23/2014 69 0.755 -1.5 -0.019 (-2.5%) -0.019 (-2.5%) 12/06/2012 67 0.774 -1.4 *Denotes significance at 95% confidence level, LSC for AP Spine = 0.022 g/cm2, LSC for Total Hip = 0.027 g/cm2 # Denotes dissimilar scan types or analysis methods Clinical Information Provided by Patient: Has rheumatoid arthritis Has used the following medications: Vitamin D, Calcium Has the following medical conditions: Hysterectomy Patient maximum height was 64 Drinks caffeinated beverages Onset of menses at age 14 Number of children 2 Impression: The patient has low bone mass, based on the Left Femoral Neck T-score. The patient has an estimated ten-year risk of hip fracture of 4.7% and an estimated ten-year risk of major fracture of 17%, based on the WHO FRAX algorithm. No significant bone loss was observed. Discussion: BONE DENSITY IS LOW AT ONE OR MORE SKELETAL SITES. THE PATIENT'S BMD AND CLINICAL RISK FACTORS CONTRIBUTE TO THIS PATIENT'S INCREASED RISK OF FRACTURE. This patient's lowest T-score is low at one or more skeletal sites. It meets the World Health Organization's (WHO) criteria for ?low bone mass? (T-score between -1.0 and -2.5). The patient's 10-year risk of hip fracture as calculated by FRAX exceeds the threshold where pharmacological therapy is recommended by the National Osteoporosis Foundation (NOF). However, all treatment decisions require clinical judgment and consideration of individual patient factors, including patient preferences, comorbidities, previous drug use, risk factors not captured in the FRAX model (e.g., frailty, falls, vitamin D deficiency, increased bone turnover, interval significant decline in bone density) and possible under or overestimation of fracture risk by FRAX. The patient should follow a healthful lifestyle (good nutrition with adequate calcium and vitamin D, and appropriate weight-bearing exercise). Follow-Up: Consider a repeat BMD and Vertebral Fracture Assessment (VFA) exam in 2 years or sooner if medically necessary, to reassess this patient's status. Reported by: DAPHNEY on 10/22/2024 1:37:00 PM. Reviewed, dictated and finalized at location A.
== END 2024-10-22 13:00 | disposition home or self-care (01) ==
PROVIDERS: PCP Nurse Practitioner Family; Visit Provider Nurse Practitioner Family
DX: Z00.00 Encounter for general adult medical examination without abnormal findings (principal); Z76.89 Persons encountering health services in other specified circumstances; M85.89 Other specified disorders of bone density and structure, multiple sites
CPT/HCPCS: 77080